=== PATIENT | male | born 1945 | race African-American/Black ===

== ENCOUNTER 2018-02-14 04:09 | Inpatient (IN) | payer BC, OTHER ==
[2018-02-14] MEDS ORDERED: SODIUM CHLORIDE 0.9% 1000 ML INFUS.BAG IV ONE (04:24)
[2018-02-14 04:42] LABS: VENOUS PC02 54.5 mmHg (38-52); VENOUS PO2 41.8 mmHg (28-48)
[2018-02-14 04:43] LABS: EOS % 1.6 % (0-4.5); HEMATOCRIT 47.6 % (35.4-49); LYMPH % 43.7 % (8-40); MCH 29.7 pg (25.7-33.7); MCHC 33.6 g/dl (32.0-35.9); MEAN CELL VOLUME 88.4 fl (80-96); MEAN PLT VOLUME 10.8 fl (7.5-11.1); MONO % 7.1 % (3.8-10.2); NEUT % 46.6 % (42.8-82.8); PLATELET COUNT 183 K/MM3 (134-434); RBC 5.39 M/mm3 (4.00-5.60); RDW 13.8 % (11.9-15.9); VENOUS PH 7.24 (7.32-7.42); WHITE BLOOD COUNT 7.2 K/mm3 (4.0-10.0)
[2018-02-14 04:53] LABS: INR 0.9 (0.82-1.09); PROTHROMBIN TIME (PATIENT) 10.2 SEC (9.7-13.0)
[2018-02-14 04:55] LABS: ACTIVATED PTT 25.2 SECONDS (26.9-34.4)
--- NOTE | 2018-02-14 05:07 | PDOC ---
History of Present Illness - General History Source: EMS, Family, Old Records Exam Limitations: Clinical Condition - History of Present Illness Initial Comments: 02/14/18 05:30 The patient is a 73 year old male, with a significant past medical history of hypertension, hyperlipidemia and diabetes (noncompliant with medications for the past couple of weeks), who presents to the emergency department via EMS for evaluation s/p two witnessed seizures early this morning beginning at approximately 3AM while the patient was in bed. The patient's reports that at approximately 3AM, she witnessed her experiencing a seizure and initiated EMS. The patient's son reports that he administered 30 units of insulin to the buttocks as EMS was on their way. EMS arrived on scene, obtained a fingerstick which was read as too high to give a numerical value and observed the patient experience a second seizure. The patient's denies any trauma, she states that the patient experienced both seizures in bed. History is provided entirely by the patients family and EMS secondary to the patients current altered state. Allergies: None reported. Past Surgical History: None reported. Social History: Former smoker. Denies alcohol or drug use. PCP: Dr. Rendon <Rosario Hannah - Last Filed: 02/14/18 06:44> <Glen Reyes - Last Filed: 02/28/18 13:12> - General Chief Complaint: Seizure Stated Complaint: SEIZURES Time Seen by Provider: 02/14/18 04:16 Past History <Rosario Hannah - Last Filed: 02/14/18 06:44> - Past Medical History Anemia: No (denies) COPD: No Diabetes: Yes - Suicide/Smoking/Psychosocial Hx Smoking History: Unknown if ever smoked Have you smoked in the past 12 months: Yes Number of Cigarettes Smoked Daily: 5 'Breaking Loose' booklet given: 09/16/16 Hx Alcohol Use: No Drug/Substance Use Hx: No Substance Use Type: None Hx Substance Use Treatment: No <Glen Reyes - Last Filed: 02/28/18 13:12> - Past Medical History Allergies/Adverse Reactions: Allergies Allergy/AdvReac Type Severity Reaction Status Date / Time No Known Allergies Allergy Verified 02/14/18 05:05 Home Medications: Ambulatory Orders Phenytoin Na Extended [Dilantin -] 300 mg PO DAILY #90 capsule 09/18/16 Atorvastatin Ca [Lipitor] 20 mg PO HS 02/14/18 Empagliflozin [Jardiance] 25 mg PO DAILY 02/14/18 Insulin Glargine,Hum.rec.anlog [[place]o Solostar] 60 unit SQ DAILY 02/14/18 Sitagliptin Phosphate [Januvia -] 50 mg PO DAILY@0700 02/14/18 Glycopyrrolate/Formoterol Fum [Bevespi Aerosphere Inhaler] 1 puff IH DAILY 02/15 Linaclotide [Linzess] 145 mcg PO DAILY 02/15/18 Insulin Sliding Scale [Novolog Vial Sliding Scale -] 1 vial SQ ACHS #0 units 07/27 levETIRAcetam [Keppra -] 750 mg PO BID 30 Days #180 tablet 02/16/18 Review of Systems - Review of Systems Able to Perform ROS?: No Comments:: 02/14/18 05:32 Unable to obtain ROS secondary to the patient's current altered mental status. <Rosario Hannah - Last Filed: 02/14/18 06:44> *Physical Exam - Vital Signs Last Vital Signs Temp Pulse Resp BP Pulse Ox 97.7 F 112 H 18 109/77 98 02/14/18 04:40 02/14/18 04:24 02/14/18 04:24 02/14/18 04:24 02/14/18 04:24 - Physical Exam Comments: 02/14/18 06:29 Vitals: Triage vital signs reviewed. General Appearance: Altered mental status. Flailing, moving all extremities. Head: Atraumatic, normocephalic. Eyes: Pupils equal round reactive, extraocular movements intact. Neck: Supple. No nuchal rigidity. Chest Wall: Nontender. Cardiac: Regular rate and rhythm. No murmurs, no rubs, no gallops. Lungs: Clear to auscultation bilaterally, good air movement bilaterally. Abdomen: Soft, nondistended, normal bowel sounds, nontender to palpation. Rectal: Exam deferred. Extremities: Full range of motion to all extremities, no cyanosis, clubbing, or edema. Skin: Warm and dry, no rashes or lesions, no petechiae. Neuro: Cranial Nerves 2-12 grossly intact. Strength intact to all extremities. Sensation intact to all extremities. Psych: Altered. <Cumberland,Rosario - Last Filed: 02/14/18 06:44> - Vital Signs Last Vital Signs Temp Pulse Resp BP Pulse Ox 97.7 F 112 H 18 109/77 98 02/14/18 04:40 02/14/18 04:24 02/14/18 04:24 02/14/18 04:24 02/14/18 04:24 <Glen Reyes - Last Filed: 02/28/18 13:12> ED Treatment Course - LABORATORY CBC & Chemistry Diagram: 02/14/18 04:00 02/14/18 04:00 - ADDITIONAL ORDERS Additional order review: Laboratory Results 02/14/18 02/14/18 02/14/18 04:50 04:00 04:00 PT with INR INR PTT (Actin FS) VBG pH POC VBG pCO2 POC VBG pO2 Mixed VBG HCO3 Sodium Potassium Chloride Carbon Dioxide Anion Gap BUN Creatinine Creat Clearance w eGFR Random Glucose Lactic Acid 9.1 H* Calcium Total Bilirubin AST ALT Alkaline Phosphatase Troponin I Cancelled Total Protein Albumin Urine Color Straw Urine Appearance Clear Urine pH 5.0 Ur Specific [place] 1.029 Urine Protein Negative Urine Glucose (UA) 3+ H Urine Ketones Negative Urine Blood Negative Urine Nitrite Negative Urine Bilirubin Negative Urine Urobilinogen Negative Ur Leukocyte Esterase Negative 02/14/18 02/14/18 02/14/18 04:00 04:00 04:00 PT with INR 10.20 INR 0.90 PTT (Actin FS) 25.2 L VBG pH 7.24 L* POC VBG pCO2 54.5 H POC VBG pO2 41.8 Mixed VBG HCO3 22.4 Sodium Cancelled Potassium Cancelled Chloride Cancelled Carbon Dioxide Cancelled Anion Gap Cancelled BUN Cancelled Creatinine Cancelled Creat Clearance w eGFR Cancelled Random Glucose Cancelled Lactic Acid Calcium Cancelled Total Bilirubin Cancelled AST Cancelled ALT Cancelled Alkaline Phosphatase Cancelled Troponin I Total Protein Cancelled Albumin Cancelled Urine Color Urine Appearance Urine pH Ur Specific [place] Urine Protein Urine Glucose (UA) Urine Ketones Urine Blood Urine Nitrite Urine Bilirubin Urine Urobilinogen Ur Leukocyte Esterase 02/14/18 04:00 RBC 5.39 MCV 88.4 MCHC 33.6 RDW 13.8 MPV 10.8 Neutrophils % 46.6 D Lymphocytes % 43.7 H D Monocytes % 7.1 Eosinophils % 1.6 D Basophils % 1.0 - Medications Given in the ED: ED Medications Discontinued Medications Generic Name Dose Route Start Last Admin Trade Name Freq PRN Reason Stop Dose Admin Lorazepam 1 mg 02/14/18 04:29 02/14/18 04:39 Ativan Injection - IVPUSH 02/14/18 04:30 1 mg ONCE ONE Administration Lorazepam 2 mg 02/14/18 05:10 02/14/18 05:14 Ativan Injection - IVPUSH 02/14/18 05:11 2 mg ONCE ONE Administration Sodium Chloride 4,000 ml 02/14/18 04:24 02/14/18 04:39 Normal Saline - IV 02/14/18 04:25 4,000 ml ONCE ONE Administration <Rosario Hannah - Last Filed: 02/14/18 06:44> - LABORATORY CBC & Chemistry Diagram: 02/16/18 06:00 02/16/18 06:00 - ADDITIONAL ORDERS Additional order review: Laboratory Results 02/14/18 02/14/18 04:00 04:00 PT with INR 10.20 INR 0.90 PTT (Actin FS) 25.2 L VBG pH 7.24 L* POC VBG pCO2 54.5 H POC VBG pO2 41.8 Mixed VBG HCO3 22.4 02/14/18 04:00 RBC 5.39 MCV 88.4 MCHC 33.6 RDW 13.8 MPV 10.8 Neutrophils % 46.6 D Lymphocytes % 43.7 H D Monocytes % 7.1 Eosinophils % 1.6 D Basophils % 1.0 - RADIOLOGY Radiology Studies Ordered: Category Date Time Status HEAD CT WITHOUT CONTRAST [CT] Stat CT Scan 02/14/18 04:25 Ordered CHEST X-RAY PORTABLE* [RAD] Stat Radiology 02/14/18 04:24 Ordered - Medications Given in the ED: ED Medications Discontinued Medications Generic Name Dose Route Start Last Admin Trade Name Freq PRN Reason Stop Dose Admin Lorazepam 1 mg 02/14/18 04:29 02/14/18 04:39 Ativan Injection - IVPUSH 02/14/18 04:30 1 mg ONCE ONE Administration Sodium Chloride 4,000 ml 02/14/18 04:24 02/14/18 04:39 Normal Saline - IV 02/14/18 04:25 4,000 ml ONCE ONE Administration <Glen Reyes - Last Filed: 02/28/18 13:12> Medical Decision Making - Medical Decision Making 02/14/18 05:31 The patient is a 73 year old male, with a significant past medical history of hypertension, hyperlipidemia and diabetes (noncompliant with medications for the past couple of weeks), who presents to the emergency department via EMS for evaluation s/p two witnessed seizures early this morning beginning at approximately 3AM while the patient was in bed. The patients reports that at approximately 3AM, she witnessed her experiencing a seizure and initiated EMS. The patients son reports that he administered 30 units of insulin to the buttocks as EMS was on their way. EMS arrived on scene, obtained a fingerstick which was read as too high to give a numerical value and observed the patient experience a second seizure. The patients denies any trauma, she states that the patient experienced both seizures in bed. History is provided entirely by the patients family and EMS secondary to the patients current altered state. Allergies: None reported. Past Surgical History: None reported. Social History: Former smoker. Denies alcohol or drug use. PCP: Dr. Rendon EXAM: CT/HEAD CT WITHOUT CONTRAST Reviewed By: Dr. Ganesh Swenson IMPRESSION: No evidence of acute pathology. Call placed to Dr. Sanders at 06:40, left message with answering service. Awaiting callback. <Rosario Hannah - Last Filed: 02/14/18 06:44> - Critical Care Time Total Critical Care Time (minutes): 55 Critical Care Statement: The care of this patient involved high complexity decision making to prevent further life threatening deterioration of the patient 's condition and/or to evaluate & treat vital organ system(s) failure or risk of failure. - Medical Decision Making History examination consistent with DKA versus hyperosmotic nonketotic coma 3 L IV fluids ordered labs pending. Patient to be admitted to ICU. Pulm/ Critical care aware We will initiate insulin drip once potassium returns. Will admit to medicine for further management. Dr. Muse to follow-up results and the spell. <Glen Reyes - Last Filed: 02/28/18 13:12> *DC/Admit/Observation/Transfer - Attestations Scribe Attestion: 02/14/18 05:31 Documentation prepared by Rosario Hannah, acting as medical office assistant instructor for Glen Reyes MD. <Rosario Hannah - Last Filed: 02/14/18 06:44> <Glen Reyes - Last Filed: 02/28/18 13:12> Diagnosis at time of Disposition: DKA (diabetic ketoacidoses), Elevated lactic acid level, Seizure - Discharge Dispostion Disposition: VNS/HOME HEALTH CARE Condition at time of disposition: Stable
[2018-02-14 05:11] LABS: URINE APPEARANCE CLEAR; URINE BILIRUBIN NEGATIVE (<2.0 mg/dL); URINE COLOR STRAW; URINE GLUCOSE (UA) 3+ (NEGATIVE); URINE KETONE NEGATIVE (NEGATIVE); URINE LEUK ESTERASE NEGATIVE (NEGATIVE); URINE NITRITE NEGATIVE (NEGATIVE); URINE PROTEIN NEGATIVE (NEGATIVE); URINE UROBILINOGEN NEGATIVE mg/dL (0.2-1.0)
[2018-02-14] MEDS ORDERED: MIDAZOLAM HCL 2 MG/2 ML SINGLE DOSE VIAL IVPUSH ONE (06:13)
[2018-02-14] MEDS ORDERED: MIDAZOLAM HCL 2 MG/2 ML SINGLE DOSE VIAL ONE (06:14)
[2018-02-14 07:48] LABS: ANION GAP 16 (8-16); BILIRUBIN,TOTAL 0.5 mg/dL (0.2-1.0); BLOOD UREA NITROGEN 17 mg/dL (7-18); CALCIUM 9.6 mg/dL (8.5-10.1); CHLORIDE 101 mmol/L (98-107); CO2 24 mmol/L (21-32); CREATININE 1.3 mg/dL (0.7-1.3); POTASSIUM 3.6 mmol/L (3.5-5.1); SGOT/AST 18 U/L (15-37); SGPT/ALT 33 U/L (12-78); SODIUM 141 mmol/L (136-145); TOT PROT 7.3 g/dl (6.4-8.2)
[2018-02-14 07:49] LABS: ALK PHOS 74 U/L (45-117)
[2018-02-14 07:50] LABS: GLUCOSE,RANDOM 613 mg/dL (74-106)
[2018-02-14] MEDS ORDERED: INSULIN REGULAR HUMAN 100 UNITS/ML *VIAL IVPUSH ONE (07:51)
--- NOTE | 2018-02-14 08:01 | PDOC ---
*Physical Exam - Vital Signs Last Vital Signs Temp Pulse Resp BP Pulse Ox 97.7 F 89 18 112/71 92 L 02/14/18 04:40 02/14/18 06:36 02/14/18 06:36 02/14/18 06:36 02/14/18 06:36 02/14/18 07:58 Care endorsed to me by Dr. Reyse at the beginning of my shift. Patient is a 73 YOM with h/o poorly controlled IDDM who took himself off insulin recently, presented to ED via EMS with seizure x2, controlled now with benzodiazepines. Finger stick BGM read "high" and pending lab workup now. Will decide on tx options based on labs. HCT with nothing acute. Admitted to ICU already. ED Treatment Course - LABORATORY CBC & Chemistry Diagram: 02/14/18 04:00 02/14/18 05:45 - ADDITIONAL ORDERS Additional order review: Laboratory Results 02/14/18 02/14/18 02/14/18 05:45 04:50 04:00 PT with INR INR PTT (Actin FS) VBG pH POC VBG pCO2 POC VBG pO2 Mixed VBG HCO3 Sodium 141 Potassium 3.6 Chloride 101 Carbon Dioxide 24 Anion Gap 16 BUN 17 D Creatinine 1.3 D Creat Clearance w eGFR 53.82 Random Glucose 613 H* D Lactic Acid Calcium 9.6 D Total Bilirubin 0.5 D AST 18 ALT 33 D Alkaline Phosphatase 74 D Troponin I < 0.02 Cancelled Total Protein 7.3 D Albumin 4.0 D Urine Color Straw Urine Appearance Clear Urine pH 5.0 Ur Specific [place] 1.029 Urine Protein Negative Urine Glucose (UA) 3+ H Urine Ketones Negative Urine Blood Negative Urine Nitrite Negative Urine Bilirubin Negative Urine Urobilinogen Negative Ur Leukocyte Esterase Negative 02/14/18 02/14/18 02/14/18 04:00 04:00 04:00 PT with INR INR PTT (Actin FS) VBG pH 7.24 L* POC VBG pCO2 54.5 H POC VBG pO2 41.8 Mixed VBG HCO3 22.4 Sodium Cancelled Potassium Cancelled Chloride Cancelled Carbon Dioxide Cancelled Anion Gap Cancelled BUN Cancelled Creatinine Cancelled Creat Clearance w eGFR Cancelled Random Glucose Cancelled Lactic Acid 9.1 H* Calcium Cancelled Total Bilirubin Cancelled AST Cancelled ALT Cancelled Alkaline Phosphatase Cancelled Troponin I Total Protein Cancelled Albumin Cancelled Urine Color Urine Appearance Urine pH Ur Specific [place] Urine Protein Urine Glucose (UA) Urine Ketones Urine Blood Urine Nitrite Urine Bilirubin Urine Urobilinogen Ur Leukocyte Esterase 02/14/18 04:00 PT with INR 10.20 INR 0.90 PTT (Actin FS) 25.2 L VBG pH POC VBG pCO2 POC VBG pO2 Mixed VBG HCO3 Sodium Potassium Chloride Carbon Dioxide Anion Gap BUN Creatinine Creat Clearance w eGFR Random Glucose Lactic Acid Calcium Total Bilirubin AST ALT Alkaline Phosphatase Troponin I Total Protein Albumin Urine Color Urine Appearance Urine pH Ur Specific [place] Urine Protein Urine Glucose (UA) Urine Ketones Urine Blood Urine Nitrite Urine Bilirubin Urine Urobilinogen Ur Leukocyte Esterase 02/14/18 04:00 RBC 5.39 MCV 88.4 MCHC 33.6 RDW 13.8 MPV 10.8 Neutrophils % 46.6 D Lymphocytes % 43.7 H D Monocytes % 7.1 Eosinophils % 1.6 D Basophils % 1.0 - Medications Given in the ED: ED Medications Discontinued Medications Generic Name Dose Route Start Last Admin Trade Name Mortezaq PRN Reason Stop Dose Admin Lorazepam 1 mg 02/14/18 04:29 02/14/18 04:39 Ativan Injection - IVPUSH 02/14/18 04:30 1 mg ONCE ONE Administration Lorazepam 2 mg 02/14/18 05:10 02/14/18 05:14 Ativan Injection - IVPUSH 02/14/18 05:11 2 mg ONCE ONE Administration Midazolam HCl 2 mg 02/14/18 06:13 02/14/18 07:16 Versed - IVPUSH 02/14/18 06:14 Not Given ONCE ONE Sodium Chloride 4,000 ml 02/14/18 04:24 02/14/18 04:39 Normal Saline - IV 02/14/18 04:25 4,000 ml ONCE ONE Administration Medical Decision Making - Medical Decision Making 02/14/18 08:10 Labs notable for slight positive 1+ acetone, anion gap 16, BG 613, K 3.6. Checking finger stick BGM then based on this will bolus insulin. Will give potassium as well with insulin. 02/14/18 10:25 Patient's repeat finger stick BG is 116, insulin drip is turned downed. Repeat EKG shows NSR rate 95 normal axis, 1st degree AV block, no Q waves in V1- V2 as there is preceding upward deflection. *DC/Admit/Observation/Transfer Diagnosis at time of Disposition: DKA (diabetic ketoacidoses), Elevated lactic acid level, Seizure - Discharge Dispostion Condition at time of disposition: Guarded Decision to Admit order: Yes - Referrals Referrals: Aries Rendon [Primary Care Provider] - - Patient Instructions - Post Discharge Activity
[2018-02-14] MEDS ORDERED: INSULIN REGULAR HUMAN 100 UNITS/ML *VIAL ONE ×2 (08:22→09:07)
[2018-02-14] MEDS ORDERED: POTASSIUM CHLORIDE 20 MEQ PREMIX IVPB 100 ML IVPB ONE ×2 (08:46→10:07)
[2018-02-14] MEDS ORDERED: KCL 10 MEQ IVPB 20 MEQ/200 ML INFUS.BAG IVPB ONE (08:55)
[2018-02-14] MEDS ORDERED: INSULIN REGULAR 100 UNITS in SODIUM CHLORIDE 99 ML IVPB SCH (09:00)
--- NOTE | 2018-02-14 09:57 | EKG ---
Test Reason : Blood Pressure : / mmHG Vent. Rate : 097 BPM Atrial Rate : 097 BPM P-R Int : 196 ms QRS Dur : 106 ms QT Int : 348 ms P-R-T Axes : 078 000 043 degrees QTc Int : 441 ms NORMAL SINUS RHYTHM SEPTAL INFARCT (CITED ON OR BEFORE 21-JAN-2011) ABNORMAL ECG WHEN COMPARED WITH ECG OF 16-SEP-2016 00:13, NO SIGNIFICANT CHANGE WAS FOUND Confirmed by MD Ltaisha, Peter ([id number]) on 02/14/2018 9:57:34 AM Referred By: Confirmed By:Peter Good MD
[2018-02-14 10:26] LABS: ARTERIAL BLD GAS O2 SATURATION 95.3 % (90-98.9); ARTERIAL BLOOD GAS BASE EXCESS -3.6 meq/l (-2-2); ARTERIAL BLOOD GAS PCO2 39.4 mmHg (35-45); ARTERIAL BLOOD GAS PO2 77.4 mmHg (70-100); ARTERIAL BLOOD GAS pH 7.35 (7.35-7.45)
[2018-02-14 10:30] LABS: CARBOXYHEMOGLOBIN 1.8 gm% (0.5-2.0)
[2018-02-14 10:35] LABS: ALLENS TEST POSITIVE
[2018-02-14] MEDS ORDERED: DEXTROSE 5%-WATER 500 ML PVC-FREE INFUS.BAG IV ONE (11:39)
--- NOTE | 2018-02-14 11:50 | PN ---
Teaching Attending Note Name of Resident: Jasmina Saldivar ATTENDING PHYSICIAN STATEMENT I saw and evaluated the patient. I reviewed the resident's note and discussed the case with the resident. I agree with the resident's findings and plan as documented. SUBJECTIVE: This is a 73 year old man with a history of HTN, hyperlipidemia, type 2 DM, seizure disorder who comes to the ED after having two seizures. The first occurred around 3 am while in bed and was witnessed by his . She called EMS. He had recently been non-compliant with his diabetic regimen, so his son gave him 30 units of insulin. When EMS arrived, he was still in bed, his fingerstick was "high", and he had a second seizure. He was brought to the ED where he had another seizure. The patient is unable to provide a history. OBJECTIVE: Vital Signs Period Temp Pulse Resp BP Sys/Yung Pulse Ox Last 24 Hr 97.7 F-97.7 F 89-112 14-18 109-120/71-84 92-98 GENERAL: Awake, confused HEART: S1S2, RRR LUNGS: Clear ABDOMEN: Soft, non-distended, normal BS EXTREMITIES: No edema Laboratory Tests 02/14/18 02/14/18 02/14/18 04:00 04:00 04:00 WBC 7.2 D RBC 5.39 Hgb 16.0 D Hct 47.6 MCV 88.4 MCH 29.7 MCHC 33.6 RDW 13.8 Plt Count 183 D MPV 10.8 Neutrophils % 46.6 D Lymphocytes % 43.7 H D Monocytes % 7.1 Eosinophils % 1.6 D Basophils % 1.0 PT with INR 10.20 INR 0.90 PTT (Actin FS) 25.2 L Puncture Site ABG pH ABG pCO2 at Pt Temp ABG pO2 at Pt Temp ABG HCO3 ABG O2 Sat (Measured) ABG O2 Content ABG Base Excess Jeremiah Test VBG pH 7.24 L* POC VBG pCO2 54.5 H POC VBG pO2 41.8 Mixed VBG HCO3 22.4 Carboxyhemoglobin Methemoglobin Oxygen Flow Rate Sodium Potassium Chloride Carbon Dioxide Anion Gap BUN Creatinine Creat Clearance w eGFR POC Glucometer Random Glucose Lactic Acid Calcium Total Bilirubin AST ALT Alkaline Phosphatase Troponin I Total Protein Albumin Urine Color Urine Appearance Urine pH Ur Specific [place] Urine Protein Urine Glucose (UA) Urine Ketones Urine Blood Urine Nitrite Urine Bilirubin Urine Urobilinogen Ur Leukocyte Esterase Acetone, Qual 02/14/18 02/14/18 02/14/18 04:00 04:00 04:00 WBC RBC Hgb Hct MCV MCH MCHC RDW Plt Count MPV Neutrophils % Lymphocytes % Monocytes % Eosinophils % Basophils % PT with INR INR PTT (Actin FS) Puncture Site ABG pH ABG pCO2 at Pt Temp ABG pO2 at Pt Temp ABG HCO3 ABG O2 Sat (Measured) ABG O2 Content ABG Base Excess Jeremiah Test VBG pH POC VBG pCO2 POC VBG pO2 Mixed VBG HCO3 Carboxyhemoglobin Methemoglobin Oxygen Flow Rate Sodium Cancelled Potassium Cancelled Chloride Cancelled Carbon Dioxide Cancelled Anion Gap Cancelled BUN Cancelled Creatinine Cancelled Creat Clearance w eGFR Cancelled POC Glucometer Random Glucose Cancelled Lactic Acid 9.1 H* Calcium Cancelled Total Bilirubin Cancelled AST Cancelled ALT Cancelled Alkaline Phosphatase Cancelled Troponin I Cancelled Total Protein Cancelled Albumin Cancelled Urine Color Urine Appearance Urine pH Ur Specific [place] Urine Protein Urine Glucose (UA) Urine Ketones Urine Blood Urine Nitrite Urine Bilirubin Urine Urobilinogen Ur Leukocyte Esterase Acetone, Qual 02/14/18 02/14/18 02/14/18 04:14 04:50 05:45 WBC RBC Hgb Hct MCV MCH MCHC RDW Plt Count MPV Neutrophils % Lymphocytes % Monocytes % Eosinophils % Basophils % PT with INR INR PTT (Actin FS) Puncture Site ABG pH ABG pCO2 at Pt Temp ABG pO2 at Pt Temp ABG HCO3 ABG O2 Sat (Measured) ABG O2 Content ABG Base Excess Jeremiah Test VBG pH POC VBG pCO2 POC VBG pO2 Mixed VBG HCO3 Carboxyhemoglobin Methemoglobin Oxygen Flow Rate Sodium 141 Potassium 3.6 Chloride 101 Carbon Dioxide 24 Anion Gap 16 BUN 17 D Creatinine 1.3 D Creat Clearance w eGFR 53.82 POC Glucometer > 400 Random Glucose 613 H* D Lactic Acid Calcium 9.6 D Total Bilirubin 0.5 D AST 18 ALT 33 D Alkaline Phosphatase 74 D Troponin I < 0.02 Total Protein 7.3 D Albumin 4.0 D Urine Color Straw Urine Appearance Clear Urine pH 5.0 Ur Specific [place] 1.029 Urine Protein Negative Urine Glucose (UA) 3+ H Urine Ketones Negative Urine Blood Negative Urine Nitrite Negative Urine Bilirubin Negative Urine Urobilinogen Negative Ur Leukocyte Esterase Negative Acetone, Qual 02/14/18 02/14/18 02/14/18 07:10 08:34 10:15 WBC RBC Hgb Hct MCV MCH MCHC RDW Plt Count MPV Neutrophils % Lymphocytes % Monocytes % Eosinophils % Basophils % PT with INR INR PTT (Actin FS) Puncture Site Right radial ABG pH 7.35 ABG pCO2 at Pt Temp 39.4 ABG pO2 at Pt Temp 77.4 D ABG HCO3 21.2 L ABG O2 Sat (Measured) 95.3 ABG O2 Content 19.5 ABG Base Excess -3.6 L Jeremiah Test Positive VBG pH POC VBG pCO2 POC VBG pO2 Mixed VBG HCO3 Carboxyhemoglobin Methemoglobin Oxygen Flow Rate Yes Sodium Potassium Chloride Carbon Dioxide Anion Gap BUN Creatinine Creat Clearance w eGFR POC Glucometer > 400 Random Glucose Lactic Acid Calcium Total Bilirubin AST ALT Alkaline Phosphatase Troponin I Total Protein Albumin Urine Color Urine Appearance Urine pH Ur Specific [place] Urine Protein Urine Glucose (UA) Urine Ketones Urine Blood Urine Nitrite Urine Bilirubin Urine Urobilinogen Ur Leukocyte Esterase Acetone, Qual Positive small 1+ 02/14/18 02/14/18 02/14/18 10:20 10:23 10:30 WBC RBC Hgb Hct MCV MCH MCHC RDW Plt Count MPV Neutrophils % Lymphocytes % Monocytes % Eosinophils % Basophils % PT with INR INR PTT (Actin FS) Puncture Site ABG pH ABG pCO2 at Pt Temp ABG pO2 at Pt Temp ABG HCO3 ABG O2 Sat (Measured) ABG O2 Content ABG Base Excess Jeremiah Test VBG pH POC VBG pCO2 POC VBG pO2 Mixed VBG HCO3 Carboxyhemoglobin 1.8 Methemoglobin 1.1 Oxygen Flow Rate Sodium Potassium Chloride Carbon Dioxide Anion Gap BUN Creatinine Creat Clearance w eGFR POC Glucometer [phone] Random Glucose Lactic Acid 3.9 H* Calcium Total Bilirubin AST ALT Alkaline Phosphatase Troponin I Total Protein Albumin Urine Color Urine Appearance Urine pH Ur Specific [place] Urine Protein Urine Glucose (UA) Urine Ketones Urine Blood Urine Nitrite Urine Bilirubin Urine Urobilinogen Ur Leukocyte Esterase Acetone, Qual 02/14/18 11:13 WBC RBC Hgb Hct MCV MCH MCHC RDW Plt Count MPV Neutrophils % Lymphocytes % Monocytes % Eosinophils % Basophils % PT with INR INR PTT (Actin FS) Puncture Site ABG pH ABG pCO2 at Pt Temp ABG pO2 at Pt Temp ABG HCO3 ABG O2 Sat (Measured) ABG O2 Content ABG Base Excess Jeremiah Test VBG pH POC VBG pCO2 POC VBG pO2 Mixed VBG HCO3 Carboxyhemoglobin Methemoglobin Oxygen Flow Rate Sodium Potassium Chloride Carbon Dioxide Anion Gap BUN Creatinine Creat Clearance w eGFR POC Glucometer [phone] Random Glucose Lactic Acid Calcium Total Bilirubin AST ALT Alkaline Phosphatase Troponin I Total Protein Albumin Urine Color Urine Appearance Urine pH Ur Specific [place] Urine Protein Urine Glucose (UA) Urine Ketones Urine Blood Urine Nitrite Urine Bilirubin Urine Urobilinogen Ur Leukocyte Esterase Acetone, Qual Home Medications Medication Instructions Recorded Phenytoin Na Extended [Dilantin -] 300 mg PO DAILY #90 capsule 09/18/16 Atorvastatin Ca [Lipitor] 20 mg PO HS 02/14/18 Empagliflozin [Jardiance] 25 mg PO DAILY 02/14/18 Insulin Glargine,Hum.rec.anlog 60 unit SQ DAILY 02/14/18 [Pily Ocasio] Sitagliptin Phosphate [Januvia] 50 mg PO DAILY@0700 02/14/18 ASSESSMENT AND PLAN: This is a 73 year old man with a history of HTN, hyperlipidemia, type 2 DM, seizure disorder who comes to the ED after having two seizures. 1. Early DKA, secondary to non-compliance - Admit to ICU - Continue regular insulin IV drip - IV fluid - Monitor fingersticks, electrolytes, anion gap, serum acetone 2. Type 2 DM, uncontrolled 3. Seizure disorder with breakthrough seizure, possibly secondary to non- compliance - Keppra IV - Check Dilantin level 4. Lactic acidemia, likely secondary to seizures - Improving - Continue IV fluid - Monitor lactic acid 4. HTN 5. Hyperlipidemia
[2018-02-14] MEDS ORDERED: DEXTROSE 5%-NORMAL SALINE 1,000 ML IV SCH (12:00)
[2018-02-14] MEDS ORDERED: DEXTROSE 5%-WATER - 1,000 ML IV SCH (12:15)
[2018-02-14] MEDS ORDERED: D5-1/2NS+40 MEQ KCL - 40 MEQ/1,000 ML INFUS.BAG IV SCH (12:30)
--- NOTE | 2018-02-14 13:02 | HP ---
CHIEF COMPLAINT: weakness, seizures PCP: Justice HISTORY OF PRESENT ILLNESS: The patient is a 73 year old male with a significant PMH of IDDM, HTN, hyperlipidemia, seizure disorder that presented to the hospital s/p seizures x 2 at home. History was taken partially from the patient and from medical documentation since the patient is still confused. He was found in bed by his who witnessed two episodes of seizures. He was given 30 units of Insulin and ambulance was called. The pt didn't have any trauma before coming to the hospital. According to the family he was not compliant with his home medications. In ED he had another seizure and he was given Versed, Ativan x 4. He was also found to have elevated Glucose to 613, AG 16, K 3.3, La 9.1, acetone 1+. He was given 4 L of Normal Saline and started on Insulin drip at rate of 0.1 u/kg/hr. Head CT-no acute pathology. The patient was accepted to ICU. When I saw the patient, he was complaining of weakness but was only oriented to his name. He didn't remember what happened and admitted to non compliance to medications. ER course was notable for: (1)Ativan, Versed (2)CT head (3)Insulin drip and NS, KCL Recent Travel:N/A PAST MEDICAL HISTORY: as above PAST SURGICAL HISTORY: N/A Social History: Smoking: former smoker Alcohol:denies Drugs: denies Family History: N/A Allergies No Known Allergies Allergy (Verified 02/14/18 05:05) HOME MEDICATIONS: Home Medications Medication Instructions Recorded Phenytoin Na Extended [Dilantin -] 300 mg PO DAILY #90 capsule 09/18/16 Atorvastatin Ca [Lipitor] 20 mg PO HS 02/14/18 Empagliflozin [Jardiance] 25 mg PO DAILY 02/14/18 Insulin Glargine,Hum.rec.anlog 60 unit SQ DAILY 02/14/18 [Pily Solostashely] Sitagliptin Phosphate [Januvia] 50 mg PO DAILY@0700 02/14/18 REVIEW OF SYSTEMS-limited due to AMS CONSTITUTIONAL: generalized weakness Absent: malaise, loss of appetite, weight change HEENT: Absent: rhinorrhea, visual changes CARDIOVASCULAR: Absent: chest pain, syncope, palpitations, irregular heart rate, lightheadedness , RESPIRATORY: Absent: cough, shortness of breath, orthopnea, wheezing, GASTROINTESTINAL: Absent: abdominal pain, nausea, vomiting, diarrhea, constipation GENITOURINARY: Absent: dysuria, frequency, urgency, MUSCULOSKELETAL: Absent: myalgia, arthralgia, joint swelling, back pain, neck pain ENDOCRINE: Absent: unexplained weight gain, unexplained weight loss, NEUROLOGIC: Absent: headache PHYSICAL EXAMINATION Vital Signs - 24 hr 02/14/18 02/14/18 02/14/18 04:24 04:40 06:36 Temperature 97.7 F 97.7 F Pulse Rate 112 H Pulse Rate [ 89 Right Apical] Respiratory 18 18 Rate Blood Pressure 109/77 Blood Pressure 112/71 [Right Arm] O2 Sat by Pulse 98 92 L Oximetry (%) 02/14/18 11:39 Temperature Pulse Rate 90 Pulse Rate [ Right Apical] Respiratory 14 Rate Blood Pressure 120/84 Blood Pressure [Right Arm] O2 Sat by Pulse Oximetry (%) GENERAL: Awake, alert, oriented to person only, in no acute distress. HEAD: Normal with no signs of trauma. EYES: Pupils equal, round and reactive to light, extraocular movements intact, sclera anicteric, conjunctival erythema. EARS, NOSE, THROAT: nares patent, oropharynx clear without exudates. Dry mucous membranes. NECK: Normal range of motion, supple without lymphadenopathy, JVD, or masses. LUNGS: Breath sounds equal, clear to auscultation bilaterally. No wheezes, and no crackles. No accessory muscle use. HEART: Regular rate and rhythm, normal S1 and S2 without murmur, rub or gallop. ABDOMEN: Soft, nontender, not distended, normoactive bowel sounds, no guarding, no rebound, no masses. MUSCULOSKELETAL: Normal range of motion at all joints. No bony deformities or tenderness. UPPER EXTREMITIES: 2+ pulses, warm, no peripheral edema. LOWER EXTREMITIES: 2+ pulses, no peripheral edema. NEUROLOGICAL: No facial asymmetry, motor 5/5, sensation to light touch normal, no focal deficits, gait not observed. PSYCHIATRIC: Cooperative. Confused. SKIN: Warm, dry, normal turgor, no rashes or lesions noted, normal capillary refill. Laboratory Results - last 24 hr 02/14/18 02/14/18 02/14/18 04:00 04:00 04:00 WBC 7.2 D RBC 5.39 Hgb 16.0 D Hct 47.6 MCV 88.4 MCH 29.7 MCHC 33.6 RDW 13.8 Plt Count 183 D MPV 10.8 Neutrophils % 46.6 D Lymphocytes % 43.7 H D Monocytes % 7.1 Eosinophils % 1.6 D Basophils % 1.0 PT with INR 10.20 INR 0.90 PTT (Actin FS) 25.2 L Puncture Site ABG pH ABG pCO2 at Pt Temp ABG pO2 at Pt Temp ABG HCO3 ABG O2 Sat (Measured) ABG O2 Content ABG Base Excess Jeremiah Test VBG pH 7.24 L* POC VBG pCO2 54.5 H POC VBG pO2 41.8 Mixed VBG HCO3 22.4 Carboxyhemoglobin Methemoglobin Oxygen Flow Rate Sodium Potassium Chloride Carbon Dioxide Anion Gap BUN Creatinine Creat Clearance w eGFR POC Glucometer Random Glucose Lactic Acid Calcium Total Bilirubin AST ALT Alkaline Phosphatase Troponin I Total Protein Albumin Urine Color Urine Appearance Urine pH Ur Specific Sid[place] Urine Protein Urine Glucose (UA) Urine Ketones Urine Blood Urine Nitrite Urine Bilirubin Urine Urobilinogen Ur Leukocyte Esterase Acetone, Qual 02/14/18 02/14/18 02/14/18 04:00 04:00 04:00 WBC RBC Hgb Hct MCV MCH MCHC RDW Plt Count MPV Neutrophils % Lymphocytes % Monocytes % Eosinophils % Basophils % PT with INR INR PTT (Actin FS) Puncture Site ABG pH ABG pCO2 at Pt Temp ABG pO2 at Pt Temp ABG HCO3 ABG O2 Sat (Measured) ABG O2 Content ABG Base Excess Jeremiah Test VBG pH POC VBG pCO2 POC VBG pO2 Mixed VBG HCO3 Carboxyhemoglobin Methemoglobin Oxygen Flow Rate Sodium Cancelled Potassium Cancelled Chloride Cancelled Carbon Dioxide Cancelled Anion Gap Cancelled BUN Cancelled Creatinine Cancelled Creat Clearance w eGFR Cancelled POC Glucometer Random Glucose Cancelled Lactic Acid 9.1 H* Calcium Cancelled Total Bilirubin Cancelled AST Cancelled ALT Cancelled Alkaline Phosphatase Cancelled Troponin I Cancelled Total Protein Cancelled Albumin Cancelled Urine Color Urine Appearance Urine pH Ur Specific [place] Urine Protein Urine Glucose (UA) Urine Ketones Urine Blood Urine Nitrite Urine Bilirubin Urine Urobilinogen Ur Leukocyte Esterase Acetone, Qual 02/14/18 02/14/18 02/14/18 04:14 04:50 05:45 WBC RBC Hgb Hct MCV MCH MCHC RDW Plt Count MPV Neutrophils % Lymphocytes % Monocytes % Eosinophils % Basophils % PT with INR INR PTT (Actin FS) Puncture Site ABG pH ABG pCO2 at Pt Temp ABG pO2 at Pt Temp ABG HCO3 ABG O2 Sat (Measured) ABG O2 Content ABG Base Excess Jeremiah Test VBG pH POC VBG pCO2 POC VBG pO2 Mixed VBG HCO3 Carboxyhemoglobin Methemoglobin Oxygen Flow Rate Sodium 141 Potassium 3.6 Chloride 101 Carbon Dioxide 24 Anion Gap 16 BUN 17 D Creatinine 1.3 D Creat Clearance w eGFR 53.82 POC Glucometer > 400 Random Glucose 613 H* D Lactic Acid Calcium 9.6 D Total Bilirubin 0.5 D AST 18 ALT 33 D Alkaline Phosphatase 74 D Troponin I < 0.02 Total Protein 7.3 D Albumin 4.0 D Urine Color Straw Urine Appearance Clear Urine pH 5.0 Ur Specific Sid[place] 1.029 Urine Protein Negative Urine Glucose (UA) 3+ H Urine Ketones Negative Urine Blood Negative Urine Nitrite Negative Urine Bilirubin Negative Urine Urobilinogen Negative Ur Leukocyte Esterase Negative Acetone, Qual 02/14/18 02/14/18 02/14/18 07:10 08:34 10:15 WBC RBC Hgb Hct MCV MCH MCHC RDW Plt Count MPV Neutrophils % Lymphocytes % Monocytes % Eosinophils % Basophils % PT with INR INR PTT (Actin FS) Puncture Site Right radial ABG pH 7.35 ABG pCO2 at Pt Temp 39.4 ABG pO2 at Pt Temp 77.4 D ABG HCO3 21.2 L ABG O2 Sat (Measured) 95.3 ABG O2 Content 19.5 ABG Base Excess -3.6 L Jeremiah Test Positive VBG pH POC VBG pCO2 POC VBG pO2 Mixed VBG HCO3 Carboxyhemoglobin Methemoglobin Oxygen Flow Rate Yes Sodium Potassium Chloride Carbon Dioxide Anion Gap BUN Creatinine Creat Clearance w eGFR POC Glucometer > 400 Random Glucose Lactic Acid Calcium Total Bilirubin AST ALT Alkaline Phosphatase Troponin I Total Protein Albumin Urine Color Urine Appearance Urine pH Ur Specific [place] Urine Protein Urine Glucose (UA) Urine Ketones Urine Blood Urine Nitrite Urine Bilirubin Urine Urobilinogen Ur Leukocyte Esterase Acetone, Qual Positive small 1+ 02/14/18 02/14/18 02/14/18 10:20 10:23 10:30 WBC RBC Hgb Hct MCV MCH MCHC RDW Plt Count MPV Neutrophils % Lymphocytes % Monocytes % Eosinophils % Basophils % PT with INR INR PTT (Actin FS) Puncture Site ABG pH ABG pCO2 at Pt Temp ABG pO2 at Pt Temp ABG HCO3 ABG O2 Sat (Measured) ABG O2 Content ABG Base Excess Jeremiah Test VBG pH POC VBG pCO2 POC VBG pO2 Mixed VBG HCO3 Carboxyhemoglobin 1.8 Methemoglobin 1.1 Oxygen Flow Rate Sodium Potassium Chloride Carbon Dioxide Anion Gap BUN Creatinine Creat Clearance w eGFR POC Glucometer [phone] Random Glucose Lactic Acid 3.9 H* Calcium Total Bilirubin AST ALT Alkaline Phosphatase Troponin I Total Protein Albumin Urine Color Urine Appearance Urine pH Ur Specific Sid[place] Urine Protein Urine Glucose (UA) Urine Ketones Urine Blood Urine Nitrite Urine Bilirubin Urine Urobilinogen Ur Leukocyte Esterase Acetone, Qual 02/14/18 11:13 WBC RBC Hgb Hct MCV MCH MCHC RDW Plt Count MPV Neutrophils % Lymphocytes % Monocytes % Eosinophils % Basophils % PT with INR INR PTT (Actin FS) Puncture Site ABG pH ABG pCO2 at Pt Temp ABG pO2 at Pt Temp ABG HCO3 ABG O2 Sat (Measured) ABG O2 Content ABG Base Excess Jeremiah Test VBG pH POC VBG pCO2 POC VBG pO2 Mixed VBG HCO3 Carboxyhemoglobin Methemoglobin Oxygen Flow Rate Sodium Potassium Chloride Carbon Dioxide Anion Gap BUN Creatinine Creat Clearance w eGFR POC Glucometer [phone] Random Glucose Lactic Acid Calcium Total Bilirubin AST ALT Alkaline Phosphatase Troponin I Total Protein Albumin Urine Color Urine Appearance Urine pH Ur Specific [place] Urine Protein Urine Glucose (UA) Urine Ketones Urine Blood Urine Nitrite Urine Bilirubin Urine Urobilinogen Ur Leukocyte Esterase Acetone, Qual CT head: no acute pathology,supratentorial changes Chest CXR: no acute pathology ASSESSMENT/PLAN: The patient is a 73 year old male with a significant PMH of IDDM, HTN, hyperlipidemia, seizure disorder that presented to the hospital s/p seizures x 2 at home and is admitted to ICU for DKA, s/p seizures. DKA: -no trigger identified, possibly related to medication non compliance -the patient was found to have elevated glucose to 613, AG was borderline 16 -he was started on insulin dri at 6.35, decreased to 3 units/hr -please give 15 units of Levemir and stop Insulin drip two hours later -continue ISS ACHS, -continue to check FS q1h and then q4h -CMP ordered -the patient was given NS, please continue D5 NS with 40 meq of KCl -f/u CMP q4h -blood and urine cultures ordered in ED -diabetic diet -HA1C ordered S/P Seizures: -possibly related to hyperglycemia, not compliance to home medications -elevated LA, f/u next one down to 3.9, f/u at 4 PM -CT no acute pathology, no hemorrhage -neuro checks -fall risk precautions -please continue Keppra 750 mg BID Hypokalemia: -follow up CMP -repleated -no EKG changes HTN: -controlled -not on medications DVT PPX: -Heparin sq BID -SCDs bilaterally F/E/N:D5NS/low /Diabetic Disposition: ICU Medications confirmed with pharmacy at [facility]. Last time the patient picked up medications in November: Toujeo 60 units qd Discussed wit Dr Chavez Problem List - Problem (1) DKA (diabetic ketoacidoses) Code(s): E13.10 - OTH DIABETES MELLITUS WITH KETOACIDOSIS WITHOUT COMA (2) Elevated lactic acid level Code(s): R79.89 - OTHER SPECIFIED ABNORMAL FINDINGS OF BLOOD CHEMISTRY (3) Seizure Code(s): R56.9 - UNSPECIFIED CONVULSIONS Visit type - Emergency Visit Emergency Visit: Yes ED Registration Date: 02/14/18 Care time: The patient presented to the Emergency Department on the above date and was hospitalized for further evaluation of their emergent condition. - New Patient This patient is new to me today: Yes Date on this admission: 02/14/18 - Critical Care Critical Care patient: Yes Total Critical Care Time (in minutes): 35 Critical Care Statement: The care of this patient involved high complexity decision making to prevent further life threatening deterioration of the patient 's condition and/or to evaluate & treat vital organ system(s) failure or risk of failure. Hospitalist Screening - Colonoscopy Questionnaire Colonoscopy Questionnaire: Colonoscopy Questionnaire - Patient: 50 - 75 years old and never had a screening colonoscopy: Unknown History of colon or rectal polyps, or CA: Unknown History of IBD, Crohn's disease or UC: Unknown History of abdominal radiation therapy as a child: Unknown - Relative: 1 with colon or rectal CA, or polyps at age 60 or younger: Unknown Colon or rectal CA diagnosed at age 45 or younger: Unknown Multiple relatives with colon or rectal CA: Unknown - Outcome: Screening Result: Negative Screen
[2018-02-14] MEDS ORDERED: INSULIN (LEVEMIR) 100 UNITS/ML UNITS SQ ONE ×2 (13:06→14:30)
--- NOTE | 2018-02-14 13:55 | EKG ---
Test Reason : Blood Pressure : / mmHG Vent. Rate : 095 BPM Atrial Rate : 095 BPM P-R Int : 212 ms QRS Dur : 086 ms QT Int : 356 ms P-R-T Axes : 074 -04 050 degrees QTc Int : 447 ms POOR DATA QUALITY, INTERPRETATION MAY BE ADVERSELY AFFECTED SINUS RHYTHM WITH 1ST DEGREE A-V BLOCK SEPTAL INFARCT (CITED ON OR BEFORE 21-JAN-2011) ABNORMAL ECG Confirmed by MD Latisha, Peter ([id number]) on 02/14/2018 1:55:22 PM Referred By: Confirmed By:Peter Good MD
[2018-02-14 14:02] LABS: ALBUMIN 3.3 g/dl (3.4-5.0); ANION GAP 8 (8-16); BLOOD UREA NITROGEN 11 mg/dL (7-18); CALCIUM 8.1 mg/dL (8.5-10.1); CHLORIDE 115 mmol/L (98-107); CO2 25 mmol/L (21-32); GLUCOSE,RANDOM 109 mg/dL (74-106); POTASSIUM 3.8 mmol/L (3.5-5.1); SODIUM 148 mmol/L (136-145)
[2018-02-14 14:06] LABS: ALK PHOS 69 U/L (45-117); BILIRUBIN,TOTAL 0.5 mg/dL (0.2-1.0); CREATININE 0.7 mg/dL (0.7-1.3); SGOT/AST 28 U/L (15-37); SGPT/ALT 28 U/L (12-78); TOT PROT 6.5 g/dl (6.4-8.2)
[2018-02-14] MEDS: SODIUM CHLORIDE 1,000 ML IV SCH ×2 (14:35→15:43)
[2018-02-14] MEDS ORDERED: HEMOQUE TEST 1 EACH EACH ONE (14:58)
[2018-02-14] MEDS ORDERED: INSULIN SLIDING SCALE (NOVOLOG) 1 VIAL SQ SCH ×2 (16:30)
[2018-02-14] MEDS ORDERED: SODIUM CHLORIDE 0.45% 1,000 ML IV SCH ×2 (18:00→19:53)
[2018-02-14] MEDS: SODIUM CHLORIDE 0.45% 1,000 ML IV SCH ×2 (20:20→22:22)
--- NOTE | 2018-02-14 20:38 | CONSULT ---
Consult Consult Specialty:: Pulm/CCM - History of Present Illness Chief Complaint: AMS; DKA History of Present Illness: 73yom with PMHx of IDDM, HTN, hyperlipidemia, seizure disorder who was brought in after having seizures x 2 at home. Report of medication non-compliance by family. In ED had witnessed seizure treated with Versed, Ativan x 4. Labs notable for BG 613, AG 16, K 3.3, La 9.1, acetone 1+. He was given 4 L of Normal Saline and started on Insulin drip at rate of 0.1 u/kg/hr. Head CT-no acute pathology. He was transferred to ICU for treatment of DKA m/l 2/2 medication non-compliance. In ICU pt slightly confused and climbing OOB w/o assistance. AG to 8. Insulin drip weaned and d/c'd. Tolerated po diet. Levemir given. He stated that his son gives him his insulin in the am and sometimes he forgets. He is hemodynamically stable and ready to be transferred to the floor. - History Source History Provided By: Medical Record Limitations to Obtaining History: Poor Historian - Past Medical History LICENSED PLUMBER: Yes: Seizure Cardio/Vascular: Yes: HTN, Hyperlipdemia Gastrointestinal: Yes: Constipation - Alcohol/Substance Use Hx Alcohol Use: No - Smoking History Smoking history: Unknown if ever smoked Have you smoked in the past 12 months: Yes Aproximately how many cigarettes per day: 5 Home Medications - Allergies Allergies/Adverse Reactions: Allergies Allergy/AdvReac Type Severity Reaction Status Date / Time No Known Allergies Allergy Verified 02/14/18 05:05 - Home Medications Home Medications: Ambulatory Orders Phenytoin Na Extended [Dilantin -] 300 mg PO DAILY #90 capsule 09/18/16 Atorvastatin Ca [Lipitor] 20 mg PO HS 02/14/18 Empagliflozin [Jardiance] 25 mg PO DAILY 02/14/18 Insulin Glargine,Hum.rec.anlog [Pily Ocasio] 60 unit SQ DAILY 02/14/18 Sitagliptin Phosphate [Januvia] 50 mg PO DAILY@0700 02/14/18 Family Disease History - Family Disease History Family History: Unable to Obtain Review of Systems Unable to obtain ROS, reason: Pt is poor historian Physical Exam Vital Signs: Vital Signs Temperature 98.0 F 02/14/18 14:00 Pulse Rate 80 02/14/18 20:00 Respiratory Rate 16 02/14/18 20:00 Blood Pressure 133/72 02/14/18 20:00 O2 Sat by Pulse Oximetry (%) 97 02/14/18 12:00 Intake & Output 02/11/18 02/12/18 02/13/18 02/14/18 23:59 23:59 23:59 23:59 Intake Total 600 Balance 600 Weight 76.067 kg Constitutional: Yes: Well Nourished, No Distress Eyes: Yes: Other (Injected sclera) HENT: Yes: Atraumatic Neck: Yes: Supple, Trachea Midline Cardiovascular: Yes: Regular Rate and Rhythm, S1, S2 Respiratory: Yes: Regular Gastrointestinal: Yes: WNL, Normal Bowel Sounds, Soft Renal/: Yes: Incontinence Extremities: Yes: WNL Edema: No Peripheral Pulses WNL: Yes Neurological: Yes: Alert, Confusion ...Motor Strength: WNL Psychiatric: Yes: Alert (Restless) Labs: CBC, BMP 02/14/18 04:00 02/14/18 12:50 CBC,CMP WBC 7.2 K/mm3 (4.0-10.0) D 02/14/18 04:00 RBC 5.39 M/mm3 (4.00-5.60) 02/14/18 04:00 Hgb 16.0 GM/dL (11.7-16.9) D 02/14/18 04:00 Hct 47.6 % (35.4-49) 02/14/18 04:00 MCV 88.4 fl (80-96) 02/14/18 04:00 MCH 29.7 pg (25.7-33.7) 02/14/18 04:00 MCHC 33.6 g/dl (32.0-35.9) 02/14/18 04:00 RDW 13.8 % (11.9-15.9) 02/14/18 04:00 Plt Count 183 K/MM3 (134-434) D 02/14/18 04:00 MPV 10.8 fl (7.5-11.1) 02/14/18 04:00 Neutrophils % 46.6 % (42.8-82.8) D 02/14/18 04:00 Lymphocytes % 43.7 % (8-40) H D 02/14/18 04:00 Monocytes % 7.1 % (3.8-10.2) 02/14/18 04:00 Eosinophils % 1.6 % (0-4.5) D 02/14/18 04:00 Basophils % 1.0 % (0-2.0) 02/14/18 04:00 Sodium 148 mmol/L (136-145) H 02/14/18 12:50 Potassium 3.8 mmol/L (3.5-5.1) 02/14/18 12:50 Chloride 115 mmol/L (98-107) H D 02/14/18 12:50 Carbon Dioxide 25 mmol/L (21-32) 02/14/18 12:50 Anion Gap 8 (8-16) 02/14/18 12:50 BUN 11 mg/dL (7-18) D 02/14/18 12:50 Creatinine 0.7 mg/dL (0.7-1.3) D 02/14/18 12:50 Creat Clearance w eGFR > 60 (>60) 02/14/18 12:50 POC Glucometer 129.98992 UNITS (80-120) 02/14/18 17:31 Random Glucose 109 mg/dL (74-106) H D 02/14/18 12:50 Lactic Acid 1.8 mmol/L (0.0-2.0) 02/14/18 16:00 Calcium 8.1 mg/dL (8.5-10.1) L 02/14/18 12:50 Total Bilirubin 0.5 mg/dL (0.2-1.0) 02/14/18 12:50 AST 28 U/L (15-37) D 02/14/18 12:50 ALT 28 U/L (12-78) 02/14/18 12:50 Alkaline Phosphatase 69 U/L (45-117) 02/14/18 12:50 Troponin I < 0.02 ng/ml (0.00-0.05) 02/14/18 05:45 Total Protein 6.5 g/dl (6.4-8.2) 02/14/18 12:50 Albumin 3.3 g/dl (3.4-5.0) L 02/14/18 12:50 Imaging - Results Chest X-ray: Report Reviewed Problem List - Problems (1) DKA (diabetic ketoacidoses) Code(s): E13.10 - OTH DIABETES MELLITUS WITH KETOACIDOSIS WITHOUT COMA (2) Elevated lactic acid level Code(s): R79.89 - OTHER SPECIFIED ABNORMAL FINDINGS OF BLOOD CHEMISTRY (3) Seizure Code(s): R56.9 - UNSPECIFIED CONVULSIONS (4) Hyperglycemia due to type 1 diabetes mellitus Code(s): E10.65 - TYPE 1 DIABETES MELLITUS WITH HYPERGLYCEMIA Assessment/Plan 73yom with PMHx of IDDM, HTN, hyperlipidemia, seizure disorder who was transferred to ICU with seizures in the setting of DKA m/l 2/2 med non- compliance. Now improved. AG closed. Is tolerating po and is started on Levemir. Remains confused bu no seizure activity noted. He is hemodynamically stable and is ready for transfer to the floor.
[2018-02-14] MEDS ORDERED: INSULIN (NOVOLOG) ASPART 100 UNITS/ML 10ML VIAL ONE (21:14)
[2018-02-14] MEDS ORDERED: levETIRAcetam 500 MG/5 ML ORAL SOLUTION (UNIT-DOSE CUPS) PO SCH (22:00)
[2018-02-14] MEDS ORDERED: HEPARIN NA (PORCINE) 5,000 UNITS/ML 1ML VIAL SQ SCH (22:00)
[2018-02-14] MEDS ORDERED: MUPIROCIN 2% TOPICAL OINTMENT FOR DECOLONIZATION NS SCH ×2 (22:00)
[2018-02-14] MEDS ORDERED: CHLORHEXIDINE GLUCONATE 4% CLEANSER FOR DECOLONIZATION TP SCH ×2 (22:00)
[2018-02-14] MEDS ORDERED: ATORVASTATIN CA 20 MG TABLET (FP) PO SCH (22:00)
[2018-02-14] MEDS: levETIRAcetam 500 MG/5 ML ORAL SOLUTION (UNIT-DOSE CUPS) PO SCH (22:26)
[2018-02-14] MEDS: HEPARIN NA (PORCINE) 5,000 UNITS/ML 1ML VIAL SQ SCH (22:26)
[2018-02-14] MEDS: ATORVASTATIN CA 20 MG TABLET (FP) PO SCH (22:26)
[2018-02-14] MEDS: INSULIN SLIDING SCALE (NOVOLOG) 1 VIAL SQ SCH (22:27)
[2018-02-15] MEDS: INSULIN SLIDING SCALE (NOVOLOG) 1 VIAL SQ SCH ×4 (06:02→21:44)
[2018-02-15] MEDS ORDERED: ACETAMINOPHEN 325 MG TABLET (FP) PO ONE (06:05)
[2018-02-15] MEDS ORDERED: PT OWN MED DRAWER 7, Y5N ONE ×3 (07:16→21:30)
[2018-02-15] MEDS ORDERED: INSULIN (NOVOLOG) ASPART 100 UNITS/ML 10ML VIAL ONE ×2 (07:16→11:42)
[2018-02-15 08:54] LABS: BASO % 0.8 % (0-2.0); EOS % 1.1 % (0-4.5); HEMATOCRIT 41.6 % (35.4-49); LYMPH % 28.5 % (8-40); MCH 29.2 pg (25.7-33.7); MCHC 33.6 g/dl (32.0-35.9); MEAN CELL VOLUME 86.9 fl (80-96); MEAN PLT VOLUME 10.5 fl (7.5-11.1); MONO % 7.5 % (3.8-10.2); NEUT % 62.1 % (42.8-82.8); PLATELET COUNT 140 K/MM3 (134-434); RBC 4.79 M/mm3 (4.00-5.60); RDW 13.2 % (11.9-15.9); WHITE BLOOD COUNT 5.8 K/mm3 (4.0-10.0)
[2018-02-15] MEDS: HEPARIN NA (PORCINE) 5,000 UNITS/ML 1ML VIAL SQ SCH ×2 (09:24→21:46)
[2018-02-15] MEDS: PHENYTOIN NA EXTENDED 100 MG CAPSULE (FP) PO SCH (09:26)
[2018-02-15] MEDS: levETIRAcetam 500 MG/5 ML ORAL SOLUTION (UNIT-DOSE CUPS) PO SCH ×2 (09:26→21:48)
[2018-02-15] MEDS ORDERED: PHENYTOIN NA EXTENDED 100 MG CAPSULE (FP) PO SCH (10:00)
[2018-02-15] MEDS ORDERED: INSULIN (LEVEMIR) 100 UNITS/ML UNITS SQ ONE ×2 (10:00→16:21)
[2018-02-15] MEDS ORDERED: INSULIN (LEVEMIR) 100 UNITS/ML UNITS SQ SCH ×3 (10:00→22:00)
[2018-02-15 10:30] LABS: CHLORIDE 113 mmol/L (98-107); POTASSIUM 3.8 mmol/L (3.5-5.1); SODIUM 145 mmol/L (136-145)
[2018-02-15 11:52] LABS: ALBUMIN 2.9 g/dl (3.4-5.0); ALK PHOS 56 U/L (45-117); ANION GAP 7 (8-16); BILIRUBIN,TOTAL 0.8 mg/dL (0.2-1.0); BLOOD UREA NITROGEN 11 mg/dL (7-18); CO2 25 mmol/L (21-32); CREATININE 0.6 mg/dL (0.7-1.3); GLUCOSE,RANDOM 83 mg/dL (74-106); PHOSPHOROUS 2.7 mg/dL (2.5-4.9); SGOT/AST 34 U/L (15-37); SGPT/ALT 25 U/L (12-78); TOT PROT 5.6 g/dl (6.4-8.2)
--- NOTE | 2018-02-15 15:11 | PN ---
Physical Exam: SUBJECTIVE: Patient seen and examined. Was admitted for DKA and managed with insulin drip in ICU. Anion gap closed within 2 hours and patient was transferred to floors. Pt does not remember what had happened. Says his son gives him his insulin (when he remembers). No abdominal pain, no chest pain or shortness of breath. Reports headache that is relieved with tylenol. Pt has started eating. OBJECTIVE: Vital Signs Period Temp Pulse Resp BP Sys/Yung Pulse Ox Last 24 Hr 97.5 F-98.9 F 68-82 14-18 112-152/59-89 96 Vital Signs Temp 97.5 F L 02/15/18 14:53 Pulse 68 02/15/18 14:53 Resp 18 02/15/18 14:53 BP 135/89 02/15/18 14:53 Pulse Ox 96 02/14/18 23:00 Intake & Output 02/12/18 02/13/18 02/14/18 02/15/18 23:59 23:59 23:59 23:59 Intake Total 804 588 Balance 804 588 Weight 76.067 kg Intake & Output 02/14/18 02/15/18 02/15/18 23:59 11:59 23:59 Intake Total 804 294 294 Balance 804 294 294 Weight 76.067 kg Intake: IV 684 294 294 1/2 Normal Saline 1,000 125 ml @ 125 mls/hr IV ASDIR [facility] Rx#:[id number] 1/2 Normal Saline 1,000 84 294 294 ml @ 42 mls/hr IV ASDIR [facility] Rx#:[id number] D5-1/2NS+40 MEQ KCL - 40 375 meq In 1,000 ml @ 125 mls /hr IV ASDIR [facility] Rx#: [id number] Normal Saline - 1,000 ml 100 @ 100 mls/hr IV ASDIR MILTON Rx#:[id number] Oral 120 Other: Voiding Method Incontinent Diaper # Unmeasured Voids Void 1 Bowel Movement No Yes Weight Measurement Method Built in Bedscale GENERAL: The patient is awake, alert, and fully oriented, in no acute distress. HEAD: Normal with no signs of trauma. EYES: PERRL, extraocular movements intact, ENT: Edentulous, moist mucous membranes. NECK: Trachea midline, full range of motion, supple. LUNGS: Breath sounds equal, clear to auscultation bilaterally, HEART: Regular rate and rhythm, S1, S2 ABDOMEN: Soft, nontender, nondistended, normoactive bowel sounds, no guarding EXTREMITIES: 2+ pulses, warm, well-perfused, no edema. NEUROLOGICAL: Cranial nerves II through XII grossly intact. No facial droop. Normal speech, gait not observed. PSYCH: Normal mood, normal affect. CBC, BMP 02/15/18 06:00 02/15/18 06:00 Laboratory Results - last 24 hr 02/14/18 02/14/18 02/14/18 12:50 16:00 17:31 WBC RBC Hgb Hct MCV MCH MCHC RDW Plt Count MPV Neutrophils % Lymphocytes % Monocytes % Eosinophils % Basophils % Sodium Potassium Chloride Carbon Dioxide Anion Gap BUN Creatinine Creat Clearance w eGFR POC Glucometer 129.39072 Random Glucose Hemoglobin A1c % Lactic Acid 1.8 Calcium Phosphorus Magnesium Total Bilirubin AST ALT Alkaline Phosphatase Total Protein Albumin Phenytoin < 2.5 L 02/14/18 02/15/18 02/15/18 21:06 05:59 06:00 WBC 5.8 RBC 4.79 Hgb 14.0 D Hct 41.6 MCV 86.9 MCH 29.2 MCHC 33.6 RDW 13.2 Plt Count 140 D MPV 10.5 Neutrophils % 62.1 D Lymphocytes % 28.5 D Monocytes % 7.5 Eosinophils % 1.1 Basophils % 0.8 Sodium Potassium Chloride Carbon Dioxide Anion Gap BUN Creatinine Creat Clearance w eGFR POC Glucometer 190 101 Random Glucose Hemoglobin A1c % Lactic Acid Calcium Phosphorus Magnesium Total Bilirubin AST ALT Alkaline Phosphatase Total Protein Albumin Phenytoin 02/15/18 02/15/18 02/15/18 06:00 06:00 06:00 WBC RBC Hgb Hct MCV MCH MCHC RDW Plt Count MPV Neutrophils % Lymphocytes % Monocytes % Eosinophils % Basophils % Sodium 145 Potassium 3.8 Chloride 113 H Carbon Dioxide 25 Anion Gap 7 L BUN 11 Creatinine 0.6 L Creat Clearance w eGFR > 60 POC Glucometer Random Glucose 83 D Hemoglobin A1c % 14.5 H D Lactic Acid 1.0 Calcium 8.0 L Phosphorus 2.7 Magnesium 2.0 Total Bilirubin 0.8 D AST 34 D ALT 25 Alkaline Phosphatase 56 Total Protein 5.6 L Albumin 2.9 L Phenytoin 02/15/18 11:35 WBC RBC Hgb Hct MCV MCH MCHC RDW Plt Count MPV Neutrophils % Lymphocytes % Monocytes % Eosinophils % Basophils % Sodium Potassium Chloride Carbon Dioxide Anion Gap BUN Creatinine Creat Clearance w eGFR POC Glucometer 240 Random Glucose Hemoglobin A1c % Lactic Acid Calcium Phosphorus Magnesium Total Bilirubin AST ALT Alkaline Phosphatase Total Protein Albumin Phenytoin Microbiology 02/14/18 04:50 Urine - Urine Clean Catch Urine Culture - Final NO GROWTH OBTAINED 02/14/18 04:30 Blood - Peripheral Venous Blood Culture - Preliminary NO GROWTH OBTAINED AFTER 24 HOURS, INCUBATION TO CONTINUE FOR 4 DAYS. 02/14/18 04:00 Blood - Peripheral Venous Blood Culture - Preliminary NO GROWTH OBTAINED AFTER 24 HOURS, INCUBATION TO CONTINUE FOR 4 DAYS. Active Medications Generic Name Dose Route Start Last Admin Trade Name Freq PRN Reason Stop Dose Admin Atorvastatin Calcium 20 mg 02/14/18 22:00 02/14/18 22:26 Lipitor - PO 20 mg HS MILTON Administration Heparin Sodium (Porcine) 5,000 unit 02/14/18 22:00 02/15/18 09:24 Heparin - SQ 5,000 unit BID [facility] Administration Insulin Aspart 1 vial 02/14/18 22:00 02/15/18 12:01 Novolog Vial Sliding Scale - SQ 4 unit ACHS MIL[facility] Administration Protocol Insulin Detemir 10 units 02/15/18 10:00 02/15/18 12:01 Levemir Vial SQ 10 units DAILY [facility] Administration Levetiracetam 750 mg 02/14/18 22:00 02/15/18 09:26 Keppra Oral Solution - PO 750 mg BID [facility] Administration Phenytoin Sodium 300 mg 02/15/18 10:00 02/15/18 09:26 Dilantin - PO 300 mg DAILY [facility] Administration ASSESSMENT/PLAN: The Pt is a 73 yo M with a signif PMHx of IDDM, HTN, hyperlipidemia, seizure disorder that presented to the hospital s/p seizures x 2 at home and is admitted for DKA, s/p seizures. 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 to be able to receive his medications as due -D/C fluids S/P Seizures: -possibly related to hyperglycemia, not compliance to home medications -elevated LA, f/u next one down to 3.9, f/u at 4 PM -CT no acute pathology, no hemorrhage -neuro checks -fall risk precautions -please continue Keppra 750 mg BID Hypokalemia: -follow up CMP -repleated -no EKG changes HTN: -controlled -not on medications FEN: Diabetic diet PO fluids Dispo: For likely discharge tomorrow with VNS per [facility] Visit type - Emergency Visit Emergency Visit: Yes ED Registration Date: 02/14/18 Care time: The patient presented to the Emergency Department on the above date and was hospitalized for further evaluation of their emergent condition. - New Patient This patient is new to me today: Yes Date on this admission: 02/15/18 - Critical Care Critical Care patient: No - Discharge Referral Referred to [facility] Med P.C.: No
--- NOTE | 2018-02-15 15:38 | PN ---
Teaching Attending Note Name of Resident: Denisha Rosario ATTENDING PHYSICIAN STATEMENT I saw and evaluated the patient. I reviewed the resident's note and discussed the case with the resident. I agree with the resident's findings and plan as documented with exceptions below SUBJECTIVE: patient seen and examined. eating lunch, pleasant, no complaints OBJECTIVE: Vital Signs Period Temp Pulse Resp BP Sys/Yung Pulse Ox Last 24 Hr 97.5 F-98.9 F 68-82 14-18 112-152/59-89 96 Intake & Output 02/12/18 02/13/18 02/14/18 02/15/18 23:59 23:59 23:59 23:59 Intake Total 804 588 Balance 804 588 Weight 167 lb 11.2 oz General: sitting in wheelchair in no acute distress Chest: CTAB, no rales or wheezing abdomen: soft, NT, ND extremities: no edema Home Medication List Medication Instructions Recorded Confirmed Type Atorvastatin Ca [Lipitor] 20 mg PO HS 02/14/18 02/14/18 History Empagliflozin [Jardiance] 25 mg PO DAILY 02/14/18 02/14/18 History Insulin Glargine,Hum.rec.anlog 60 unit SQ DAILY 02/14/18 02/14/18 History [Toujeo Solostar] Sitagliptin Phosphate [Januvia] 50 mg PO DAILY@0700 02/14/18 02/14/18 History Glycopyrrolate/Formoterol Fum 1 puff IH DAILY 02/15/18 02/15/18 History [Bevespi Aerosphere Inhaler] Linaclotide [Linzess] 145 mcg PO DAILY 02/15/18 02/15/18 History Active Medications Generic Name Dose Route Start Last Admin Trade Name Mortezaq PRN Reason Stop Dose Admin Atorvastatin Calcium 20 mg 02/14/18 22:00 02/14/18 22:26 Lipitor - PO 20 mg HS MILTON Administration Heparin Sodium (Porcine) 5,000 unit 02/14/18 22:00 02/15/18 09:24 Heparin - SQ 5,000 unit BID [facility] Administration Insulin Aspart 1 vial 02/14/18 22:00 02/15/18 12:01 Novolog Vial Sliding Scale - SQ 4 unit ACHS MIL[facility] Administration Protocol Insulin Detemir 10 units 02/15/18 10:00 02/15/18 12:01 Levemir Vial SQ 10 units DAILY [facility] Administration Levetiracetam 750 mg 02/14/18 22:00 02/15/18 09:26 Keppra Oral Solution - PO 750 mg BID [facility] Administration Phenytoin Sodium 300 mg 02/15/18 10:00 02/15/18 09:26 Dilantin - PO 300 mg DAILY [facility] Administration Laboratory Results - last 24 hr 02/14/18 02/14/18 02/14/18 12:50 16:00 17:31 WBC RBC Hgb Hct MCV MCH MCHC RDW Plt Count MPV Neutrophils % Lymphocytes % Monocytes % Eosinophils % Basophils % Sodium Potassium Chloride Carbon Dioxide Anion Gap BUN Creatinine Creat Clearance w eGFR POC Glucometer 129.98677 Random Glucose Hemoglobin A1c % Lactic Acid 1.8 Calcium Phosphorus Magnesium Total Bilirubin AST ALT Alkaline Phosphatase Total Protein Albumin Phenytoin < 2.5 L 02/14/18 02/15/18 02/15/18 21:06 05:59 06:00 WBC 5.8 RBC 4.79 Hgb 14.0 D Hct 41.6 MCV 86.9 MCH 29.2 MCHC 33.6 RDW 13.2 Plt Count 140 D MPV 10.5 Neutrophils % 62.1 D Lymphocytes % 28.5 D Monocytes % 7.5 Eosinophils % 1.1 Basophils % 0.8 Sodium Potassium Chloride Carbon Dioxide Anion Gap BUN Creatinine Creat Clearance w eGFR POC Glucometer 190 101 Random Glucose Hemoglobin A1c % Lactic Acid Calcium Phosphorus Magnesium Total Bilirubin AST ALT Alkaline Phosphatase Total Protein Albumin Phenytoin 02/15/18 02/15/18 02/15/18 06:00 06:00 06:00 WBC RBC Hgb Hct MCV MCH MCHC RDW Plt Count MPV Neutrophils % Lymphocytes % Monocytes % Eosinophils % Basophils % Sodium 145 Potassium 3.8 Chloride 113 H Carbon Dioxide 25 Anion Gap 7 L BUN 11 Creatinine 0.6 L Creat Clearance w eGFR > 60 POC Glucometer Random Glucose 83 D Hemoglobin A1c % 14.5 H D Lactic Acid 1.0 Calcium 8.0 L Phosphorus 2.7 Magnesium 2.0 Total Bilirubin 0.8 D AST 34 D ALT 25 Alkaline Phosphatase 56 Total Protein 5.6 L Albumin 2.9 L Phenytoin 02/15/18 11:35 WBC RBC Hgb Hct MCV MCH MCHC RDW Plt Count MPV Neutrophils % Lymphocytes % Monocytes % Eosinophils % Basophils % Sodium Potassium Chloride Carbon Dioxide Anion Gap BUN Creatinine Creat Clearance w eGFR POC Glucometer 240 Random Glucose Hemoglobin A1c % Lactic Acid Calcium Phosphorus Magnesium Total Bilirubin AST ALT Alkaline Phosphatase Total Protein Albumin Phenytoin Microbiology 02/14/18 04:50 Urine - Urine Clean Catch Urine Culture - Final NO GROWTH OBTAINED 02/14/18 04:30 Blood - Peripheral Venous Blood Culture - Preliminary NO GROWTH OBTAINED AFTER 24 HOURS, INCUBATION TO CONTINUE FOR 4 DAYS. 02/14/18 04:00 Blood - Peripheral Venous Blood Culture - Preliminary NO GROWTH OBTAINED AFTER 24 HOURS, INCUBATION TO CONTINUE FOR 4 DAYS. ASSESSMENT AND PLAN: 73 yom with PMHx of IDDM, HTN, hyperlipidemia, seizure disorder admitted with seizure x 3 and DKA in the setting of non compliance. -SEizure x 3 -DKA, resolved -IDDM -Medication non compliance -HTN -HLD Plan: anion gap closed. Start levemir 10 units daily. ISS. COnfirm home meds. Resume januvia in 24 hours based on blood sugars. Compliance stressed with grand son and patient, continue phenytoin. No driving,operating heavy machinery, being alone in water, on heights or with children. Continue lipitor DVTPPX dispo in 24 hours if no new concerns. PT eval, medication compliance counseling and VNS if patient/family agreable. Plan discussed with patient and grandson at bedside in detail, all questions answered.
[2018-02-15] MEDS: ATORVASTATIN CA 20 MG TABLET (FP) PO SCH (21:47)
[2018-02-16] MEDS: INSULIN SLIDING SCALE (NOVOLOG) 1 VIAL SQ SCH ×3 (06:47→17:01)
[2018-02-16] MEDS ORDERED: INSULIN (LEVEMIR) 100 UNITS/ML UNITS SQ SCH (07:00)
[2018-02-16] MEDS ORDERED: PT OWN MED DRAWER 7, Y5N ONE (07:02)
[2018-02-16] MEDS ORDERED: INSULIN (NOVOLOG) ASPART 100 UNITS/ML 10ML VIAL ONE ×3 (07:02→13:04)
--- NOTE | 2018-02-16 07:37 | PN ---
Physical Exam: SUBJECTIVE: Patient seen and examined. No new complaints this am. No abdominal pain, vomiting or chest pain. Pt wants to go home. OBJECTIVE: Vital Signs Period Temp Pulse Resp BP Sys/Yung Pulse Ox Last 24 Hr 97.5 F-98.3 F 61-82 18-20 126-158/59-91 98 GENERAL: The patient is awake, alert, and fully oriented, in no acute distress. HEAD: Normal with no signs of trauma. EYES: PERRL, extraocular movements intact, sclera anicteric, conjunctiva clear. No ptosis. ENT: Ears normal, nares patent, oropharynx clear without exudates, moist mucous membranes. NECK: Trachea midline, full range of motion, supple. LUNGS: Breath sounds equal, clear to auscultation bilaterally, no wheezes, no crackles, no accessory muscle use. HEART: Regular rate and rhythm, S1, S2 without murmur, rub or gallop. ABDOMEN: Soft, nontender, nondistended, normoactive bowel sounds, no guarding, no rebound, no hepatosplenomegaly, no masses. EXTREMITIES: 2+ pulses, warm, well-perfused, no edema. NEUROLOGICAL: Cranial nerves II through XII grossly intact. Normal speech, gait not observed. PSYCH: Normal mood, normal affect. SKIN: Warm, dry, normal turgor, no rashes or lesions noted Laboratory Results - last 24 hr 02/15/18 02/15/18 02/15/18 06:00 06:00 06:00 WBC 5.8 RBC 4.79 Hgb 14.0 D Hct 41.6 MCV 86.9 MCH 29.2 MCHC 33.6 RDW 13.2 Plt Count 140 D MPV 10.5 Neutrophils % 62.1 D Lymphocytes % 28.5 D Monocytes % 7.5 Eosinophils % 1.1 Basophils % 0.8 Sodium 145 Potassium 3.8 Chloride 113 H Carbon Dioxide 25 Anion Gap 7 L BUN 11 Creatinine 0.6 L Creat Clearance w eGFR > 60 POC Glucometer Random Glucose 83 D Hemoglobin A1c % 14.5 H D Lactic Acid Calcium 8.0 L Phosphorus 2.7 Magnesium 2.0 Total Bilirubin 0.8 D AST 34 D ALT 25 Alkaline Phosphatase 56 Total Protein 5.6 L Albumin 2.9 L 02/15/18 02/15/18 02/15/18 06:00 11:35 16:44 WBC RBC Hgb Hct MCV MCH MCHC RDW Plt Count MPV Neutrophils % Lymphocytes % Monocytes % Eosinophils % Basophils % Sodium Potassium Chloride Carbon Dioxide Anion Gap BUN Creatinine Creat Clearance w eGFR POC Glucometer 240 323 Random Glucose Hemoglobin A1c % Lactic Acid 1.0 Calcium Phosphorus Magnesium Total Bilirubin AST ALT Alkaline Phosphatase Total Protein Albumin 02/15/18 02/16/18 21:42 06:43 WBC RBC Hgb Hct MCV MCH MCHC RDW Plt Count MPV Neutrophils % Lymphocytes % Monocytes % Eosinophils % Basophils % Sodium Potassium Chloride Carbon Dioxide Anion Gap BUN Creatinine Creat Clearance w eGFR POC Glucometer 237 195 Random Glucose Hemoglobin A1c % Lactic Acid Calcium Phosphorus Magnesium Total Bilirubin AST ALT Alkaline Phosphatase Total Protein Albumin Active Medications Generic Name Dose Route Start Last Admin Trade Name Freq PRN Reason Stop Dose Admin Atorvastatin Calcium 20 mg 02/14/18 22:00 02/15/18 21:47 Lipitor - PO 20 mg HS [facility] Administration Heparin Sodium (Porcine) 5,000 unit 02/14/18 22:00 02/15/18 21:46 Heparin - SQ 5,000 unit BID [facility] Administration Insulin Aspart 1 vial 02/14/18 22:00 02/16/18 06:47 Novolog Vial Sliding Scale - SQ 2 unit ACHS MILTON Administration Protocol Insulin Detemir 15 units 02/16/18 07:00 02/16/18 06:45 Levemir Vial SQ 15 unit DAILY@0700 MIL[facility] Administration Levetiracetam 750 mg 02/14/18 22:00 02/15/18 21:48 Keppra Oral Solution - PO 750 mg BID MIL[facility] Administration Phenytoin Sodium 300 mg 02/15/18 10:00 02/15/18 09:26 Dilantin - PO 300 mg DAILY MILTON Administration ASSESSMENT/PLAN:
[2018-02-16 08:05] LABS: BASO % 1.3 % (0-2.0); EOS % 2.8 % (0-4.5); HEMATOCRIT 40.8 % (35.4-49); HEMOGLOBIN 13.9 GM/dL (11.7-16.9); LYMPH % 37.7 % (8-40); MCH 29.4 pg (25.7-33.7); MEAN CELL VOLUME 86.7 fl (80-96); MEAN PLT VOLUME 10.5 fl (7.5-11.1); MONO % 8.5 % (3.8-10.2); NEUT % 49.7 % (42.8-82.8); PLATELET COUNT 138 K/MM3 (134-434); RBC 4.71 M/mm3 (4.00-5.60); RDW 13.3 % (11.9-15.9); WHITE BLOOD COUNT 4.6 K/mm3 (4.0-10.0)
--- NOTE | 2018-02-16 08:33 | PN ---
Teaching Attending Note Name of Resident: Denisha Rosario ATTENDING PHYSICIAN STATEMENT I saw and evaluated the patient. I reviewed the resident's note and discussed the case with the resident. I agree with the resident's findings and plan as documented with exceptions below. SUBJECTIVE: Patient seen and examined, no concerns. OBJECTIVE: Vital Signs Period Temp Pulse Resp BP Sys/Yung Pulse Ox Last 24 Hr 97.5 F-98.3 F 61-82 18-20 126-158/59-91 98 Intake & Output 02/13/18 02/14/18 02/15/18 02/16/18 23:59 23:59 23:59 23:59 Intake Total 804 828 200 Balance 804 828 200 Weight 167 lb 11.2 oz general:sitting in wheelchair, no acute distress, ambulating with no concerns Home Medication List Medication Instructions Recorded Confirmed Type Atorvastatin Ca [Lipitor] 20 mg PO HS 02/14/18 02/14/18 History Empagliflozin [Jardiance] 25 mg PO DAILY 02/14/18 02/14/18 History Insulin Glargine,Hum.rec.anlog 60 unit SQ DAILY 02/14/18 02/14/18 History [Toujeo Solostar] Sitagliptin Phosphate [Januvia -] 50 mg PO DAILY@0700 02/14/18 02/14/18 History Glycopyrrolate/Formoterol Fum 1 puff IH DAILY 02/15/18 02/15/18 History [Bevespi Aerosphere Inhaler] Linaclotide [Linzess] 145 mcg PO DAILY 02/15/18 02/15/18 History Active Medications Generic Name Dose Route Start Last Admin Trade Name Rolo PRN Reason Stop Dose Admin Atorvastatin Calcium 20 mg 02/14/18 22:00 02/15/18 21:47 Lipitor - PO 20 mg HS MITLON Administration Heparin Sodium (Porcine) 5,000 unit 02/14/18 22:00 02/15/18 21:46 Heparin - SQ 5,000 unit BID [facility] Administration Insulin Aspart 1 vial 02/14/18 22:00 02/16/18 06:47 Novolog Vial Sliding Scale - SQ 2 unit ACHS MILTON Administration Protocol Insulin Detemir 15 units 02/16/18 07:00 02/16/18 06:45 Levemir Vial SQ 15 unit DAILY@0700 MIL[facility] Administration Levetiracetam 750 mg 02/14/18 22:00 02/15/18 21:48 Keppra Oral Solution - PO 750 mg BID MIL[facility] Administration Phenytoin Sodium 300 mg 02/15/18 10:00 02/15/18 09:26 Dilantin - PO 300 mg DAILY MILTON Administration Microbiology 02/14/18 04:30 Blood - Peripheral Venous Blood Culture - Preliminary NO GROWTH OBTAINED AFTER 48 HOURS, INCUBATION TO CONTINUE FOR 3 DAYS. 02/14/18 04:00 Blood - Peripheral Venous Blood Culture - Preliminary NO GROWTH OBTAINED AFTER 48 HOURS, INCUBATION TO CONTINUE FOR 3 DAYS. 02/14/18 04:50 Urine - Urine Clean Catch Urine Culture - Final NO GROWTH OBTAINED ASSESSMENT AND PLAN: 73 yom with PMHx of IDDM, HTN, hyperlipidemia, seizure disorder admitted with seizure x 3 and DKA in the setting of non compliance. -Seizure x 3 -DKA, resolved -IDDM -Medication non compliance -HTN -HLD Plan: Discussed with Dr. Escobar, recommend continuing dilantin 300 mg and Keppra 750 mg BID on d/c with outpatient follow up. Discussed with PCP Dr. Justice Chris. Patient with prior h/o noncompliance and last A1c 15. Recommends continuing his home regimen with levemir 60 units daily, Jardiance and Januvia as is not worried about hypoglycemia. Also informed that keppra will be added to his regimen. Again medication,dietary and follow up compliance stressed with patient. D/c home today on current home regimen with addition of keppra. Plan discussed with patient in detail, all questions answered. .
[2018-02-16 08:48] LABS: CHLORIDE 109 mmol/L (98-107); POTASSIUM 3.9 mmol/L (3.5-5.1); SODIUM 143 mmol/L (136-145)
[2018-02-16 08:57] LABS: ALBUMIN 2.8 g/dl (3.4-5.0); ALK PHOS 58 U/L (45-117); ANION GAP 6 (8-16); BILIRUBIN,TOTAL 0.9 mg/dL (0.2-1.0); BLOOD UREA NITROGEN 14 mg/dL (7-18); CALCIUM 8.1 mg/dL (8.5-10.1); CO2 28 mmol/L (21-32); CREATININE 0.8 mg/dL (0.7-1.3); GLUCOSE,RANDOM 203 mg/dL (74-106); PHOSPHOROUS 3.2 mg/dL (2.5-4.9); SGOT/AST 39 U/L (15-37); SGPT/ALT 31 U/L (12-78); TOT PROT 5.6 g/dl (6.4-8.2)
[2018-02-16] MEDS: PHENYTOIN NA EXTENDED 100 MG CAPSULE (FP) PO SCH (10:28)
[2018-02-16] MEDS: levETIRAcetam 500 MG/5 ML ORAL SOLUTION (UNIT-DOSE CUPS) PO SCH (10:28)
[2018-02-16] MEDS: HEPARIN NA (PORCINE) 5,000 UNITS/ML 1ML VIAL SQ SCH (10:29)
[2018-02-16] MEDS ORDERED: levETIRAcetam 250 MG TABLET (FP) PO SCH ×2 (11:45)
--- NOTE | 2018-02-16 12:03 | DS ---
Physical Exam: SUBJECTIVE: Patient seen and examined. No new complaints this am. No abdominal pain, vomiting, no headache and no seizures. He is tolerating food well. Pt wants to go home. OBJECTIVE: Vital Signs Period Temp Pulse Resp BP Sys/Yung Pulse Ox Last 24 Hr 97.5 F-98.5 F 61-89 18-20 126-158/80-91 98 Vital Signs Temp 98.5 F 02/16/18 10:00 Pulse 89 02/16/18 10:00 Resp 20 02/16/18 10:00 BP 141/89 02/16/18 10:00 Pulse Ox 98 02/15/18 21:57 Intake & Output 02/15/18 02/15/18 02/16/18 11:59 23:59 11:59 Intake Total 294 534 200 Balance 294 534 200 Intake: IV 294 294 1/2 Normal Saline 1,000 294 294 ml @ 42 mls/hr IV ASDIR MILTON Rx#:[id number] Oral 240 200 Other: Voiding Method Diaper Toilet Toilet # Unmeasured Voids Void 1 1 Bowel Movement No Yes No PHYSICAL EXAM GENERAL: The patient is awake, alert, and fully oriented, in no acute distress. HEAD: Normal with no signs of trauma. EYES: PERRL, extraocular movements intact ENT: moist mucous membranes. NECK: Trachea midline, full range of motion, supple. LUNGS: Breath sounds equal, clear to auscultation bilaterally, no wheezes, no crackles HEART: Regular rate and rhythm, S1, S2 ABDOMEN: Soft, nontender, nondistended, normoactive bowel sounds EXTREMITIES: 2+ pulses, warm, well-perfused, no edema. NEUROLOGICAL: AAOx3. Normal speech, normal gait, no facial droop. CBC, BMP 02/16/18 06:00 02/16/18 06:00 LABS Laboratory Results - last 24 hr 02/15/18 02/15/18 02/15/18 06:00 06:00 16:44 WBC RBC Hgb Hct MCV MCH MCHC RDW Plt Count MPV Neutrophils % Lymphocytes % Monocytes % Eosinophils % Basophils % Sodium 145 Potassium 3.8 Chloride 113 H Carbon Dioxide 25 Anion Gap 7 L BUN 11 Creatinine 0.6 L Creat Clearance w eGFR > 60 POC Glucometer 323 Random Glucose 83 D Hemoglobin A1c % 14.5 H D Calcium 8.0 L Phosphorus 2.7 Magnesium 2.0 Total Bilirubin 0.8 D AST 34 D ALT 25 Alkaline Phosphatase 56 Total Protein 5.6 L Albumin 2.9 L 02/15/18 02/16/18 02/16/18 21:42 06:00 06:00 WBC 4.6 RBC 4.71 Hgb 13.9 Hct 40.8 MCV 86.7 MCH 29.4 MCHC 34.0 RDW 13.3 Plt Count 138 MPV 10.5 Neutrophils % 49.7 Lymphocytes % 37.7 D Monocytes % 8.5 Eosinophils % 2.8 D Basophils % 1.3 Sodium 143 Potassium 3.9 Chloride 109 H Carbon Dioxide 28 Anion Gap 6 L BUN 14 D Creatinine 0.8 D Creat Clearance w eGFR > 60 POC Glucometer 237 Random Glucose 203 H D Hemoglobin A1c % Calcium 8.1 L Phosphorus 3.2 Magnesium 2.0 Total Bilirubin 0.9 AST 39 H ALT 31 D Alkaline Phosphatase 58 Total Protein 5.6 L Albumin 2.8 L 02/16/18 02/16/18 06:43 11:15 WBC RBC Hgb Hct MCV MCH MCHC RDW Plt Count MPV Neutrophils % Lymphocytes % Monocytes % Eosinophils % Basophils % Sodium Potassium Chloride Carbon Dioxide Anion Gap BUN Creatinine Creat Clearance w eGFR POC Glucometer 195 258 Random Glucose Hemoglobin A1c % Calcium Phosphorus Magnesium Total Bilirubin AST ALT Alkaline Phosphatase Total Protein Albumin HOSPITAL COURSE: Date of Admission:02/14/18 Date of Discharge: 02/16/18 PreHospital course: The Pt is a 73 yo M with a signif PMHx of IDDM, HTN, hyperlipidemia, seizure disorder that presented to the hospital s/p seizures x 2 at home and is admitted for DKA, s/p seizures. He had similar presentations to the Emergency room in the past for hyperglycemia and seizures, related to drug compliance. Hospital course: Admission blood glucose was 613, AG was borderline 16, he received insulin drip that closed the gap in 2 hrs, then pt received 15 units of Levemir then was started on ISS. His HgbA1C was -14.5 and he was maintained on 15u levemir with ISS ACHS. He remained awake, alert and oriented, eating and walking around with no evidence of infection. He was placed on Keppra 750 mg in addition to his home dilantin for seizures. He was discharged on all his previous home medications. We discussed with his primary doctor and , prior to discharge. He was discharged home with VNS. Minutes to complete discharge: 42 Discharge Summary Reason For Visit: DIABETIC KETOACIDOSIS,SEIZURE Current Active Problems DKA (diabetic ketoacidoses) (Acute) Elevated lactic acid level (Acute) Seizure (Acute) Condition: Stable - Instructions Diet, Activity, Other Instructions: You were seen here after convulsing. You had not been getting your insulin at home regularly Your sugars were found to be very high and your blood had high levels of acids We treated you with fluids and insulin drip and injections and you improved We are sending you home to have a visiting nurse come and ensure you are correctly taking your insulin to prevent a repeat seizure or loss of consciousness Please follow up with your primary doctor within a week to check your glucose levels If you think your symptoms are worsening, please return to the emergency room No driving, operating heavy machinery, being alone on heights, with children or in water. Strongly advise to check your blood sugars before meals and at bedtime and maintain a diary and notify your doctor if < 75 or persistently > 200 or any reading > 400 noted. Medications: We are adding Keppra 750mg twice a day for your seizures Strongly advise to take all your medications as prescribed. Continue all your diabetes medications as before. Your hospital course has been discussed with your regular medical doctor and you are strongly advised to follow up with him in 1 week. Referrals: Aries Rendon [Primary Care Provider] - 1 Week Disposition: VNS/HOME HEALTH CARE - Home Medications Comprehensive Discharge Medication List: Ambulatory Orders Phenytoin Na Extended [Dilantin -] 300 mg PO DAILY #90 capsule 09/18/16 Atorvastatin Ca [Lipitor] 20 mg PO HS 02/14/18 Empagliflozin [Jardiance] 25 mg PO DAILY 02/14/18 Insulin Glargine,Hum.rec.anlog [Toujeo Solostar] 60 unit SQ DAILY 02/14/18 Sitagliptin Phosphate [Januvia -] 50 mg PO DAILY@0700 02/14/18 Glycopyrrolate/Formoterol Fum [Bevespi Aerosphere Inhaler] 1 puff IH DAILY 02/15 Linaclotide [Linzess] 145 mcg PO DAILY 02/15/18 Insulin Sliding Scale [Novolog Vial Sliding Scale -] 1 vial SQ ACHS #0 units 07/27 levETIRAcetam [Keppra -] 750 mg PO BID 30 Days #180 tablet 02/16/18 This patient is new to me today: No Emergency Visit: Yes ED Registration Date: 02/14/18 Care time: The patient presented to the Emergency Department on the above date and was hospitalized for further evaluation of their emergent condition. Critical Care patient: No - Discharge Referral Referred to [facility] Med P.C.: No
[2018-02-16 17:18] VITALS: BP 141/78; PULSE 65; TEMP 97.4
== END 2018-02-16 19:00 | disposition home health service (06) | DRG 639 ==
LOC: JER 04:09 → JERBED 10:08 → JICU 11:56 → J7W 21:08
PROVIDERS: ADMIT Hospitalist; ATTEND Hospitalist
DX: E11.10 Type 2 diabetes mellitus with ketoacidosis without coma (principal); Z79.4 Long term (current) use of insulin; I10 Essential (primary) hypertension; E78.5 Hyperlipidemia, unspecified; E87.6 Hypokalemia; Z91.14 Patient's other noncompliance with medication regimen; R79.89 Other specified abnormal findings of blood chemistry; G40.909 Epilepsy, unspecified, not intractable, without status epilepticus
CPT/HCPCS: 36415; 36600; 70450-TC; 71045-TC-FY; 80053; 80185; 81003; 82009; 82375; 82803; 82962; 83036; 83050; 83605; 83735; 84100; 84484; 85025; 85610; 85730; 87040; 87086; 93005; 93010; 97116-GP; 97161-GP; 99285-25; J1644; J7030

== ENCOUNTER 2019-01-25 23:16 | Inpatient (IN) | payer BC, OTHER ==
[2019-01-26] MEDS ORDERED: SODIUM CHLORIDE 1,000 ML IV STA ×2 (00:09→01:36)
--- NOTE | 2019-01-26 00:10 | PDOC ---
History of Present Illness - General Chief Complaint: Blood Sugar Problem Stated Complaint: DIABETIC Time Seen by Provider: 01/25/19 23:33 History Source: Patient, Family Exam Limitations: No Limitations - History of Present Illness Initial Comments: 01/26/19 00:06 Pt is a 74yo M with PMH of IDDM, HTN, HLD, BPH, Constipation BIBA after a syncopal v. seizure like episode around 1 hour ago. Per family, pt was stating that his L arm was shaking and then he passed out for about 20 minutes. Fingerstick was in the 500s at home. Per , pt rolled out of bed and fell last night and may have hit his head on the nightstand. He went to urgent care earlier today and given a muscle relaxer. He was fine all day until the shaking episode. He had a similar episode in the past when his sugars are high. Pt seemed to be a bit confused after the episode. Endorses neck/shoulder pain with movement and urinary frequency. Denies chest pain, sob, abdominal pain, n/v/d, headache, back pain, changes in vision, fevers, chills, recent illnesses, sick contacts. Per family, pt is not the most compliant with the insulin, but he did take his insulin today. PMD: Justice PMH: see hpi Meds: 60u and 10u insulin, atorvastatin, Keppra, ASA 81, Flomax Allergies: nkda - Hope () Past History - Past Medical History Allergies/Adverse Reactions: Allergies Allergy/AdvReac Type Severity Reaction Status Date / Time No Known Allergies Allergy Verified 01/25/19 23:31 Home Medications: Ambulatory Orders Phenytoin Na Extended [Dilantin -] 300 mg PO DAILY #90 capsule 09/18/16 Atorvastatin Ca [Lipitor] 20 mg PO HS 02/14/18 Empagliflozin [Jardiance] 25 mg PO DAILY 02/14/18 Insulin Glargine,Hum.rec.anlog [Pily Solostashely] 60 unit SQ DAILY 02/14/18 Sitagliptin Phosphate [Januvia -] 50 mg PO DAILY@0700 02/14/18 Glycopyrrolate/Formoterol Fum [Bevespi Aerosphere Inhaler] 1 puff IH DAILY 02/15 Linaclotide [Linzess] 145 mcg PO DAILY 02/15/18 Insulin Sliding Scale [Novolog Vial Sliding Scale -] 1 vial SQ ACHS #0 units 07/27 levETIRAcetam [Keppra -] 750 mg PO BID 30 Days #180 tablet 02/16/18 Anemia: No (denies) COPD: No Diabetes: Yes - Suicide/Smoking/Psychosocial Hx Smoking History: Never smoked Have you smoked in the past 12 months: No Number of Cigarettes Smoked Daily: 5 Information on smoking cessation initiated: No 'Breaking Loose' booklet given: 09/16/16 Hx Alcohol Use: No Drug/Substance Use Hx: No Substance Use Type: None Hx Substance Use Treatment: No Review of Systems - Review of Systems Constitutional: No: Chills, Fever, Night Sweats HEENTM: No: Symptoms Reported Respiratory: No: Shortness of Breath, Wheezing Cardiac (ROS): Yes: See HPI, Syncope. No: Chest Pain, Edema, Lightheadedness, Palpitations ABD/GI: No: Constipated, Diarrhea, Nausea, Vomiting, Abdominal cramping : Yes: Frequency. No: Dysuria, Hematuria Musculoskeletal: Yes: See HPI, Muscle Pain, Neck Pain. No: Back Pain, Joint Pain Integumentary: No: Symptoms Reported Neurological: Yes: See HPI, Seizure, Tremors. No: Headache, Numbness, Tingling *Physical Exam - Vital Signs Last Vital Signs Temp Pulse Resp BP Pulse Ox 97.6 F 93 H 18 151/92 93 L 01/25/19 23:31 01/25/19 23:31 01/25/19 23:31 01/25/19 23:31 01/25/19 23:31 - Physical Exam General Appearance: Yes: Nourished, Appropriately Dressed. No: Apparent Distress HEENT: positive: EOMI, AIDEN, Normal ENT Inspection, Pharynx Normal, Other (r eye injection from procedure) Neck: positive: Trachea midline, Supple. negative: Lymphadenopathy (R), Lymphadenopathy (L) Respiratory/Chest: positive: Lungs Clear, Normal Breath Sounds Cardiovascular: positive: Regular Rhythm, Regular Rate, S1, S2. negative: Edema , JVD, Murmur Vascular Pulses: Carotid (R): 2+, Carotid (L): 2+, Dorsalis-Pedis (R): 2+, Doralis-Pedis (L): 2+ Gastrointestinal/Abdominal: positive: Normal Bowel Sounds, Soft. negative: Distended, Rebound, Tenderness, Hernia, Mass Musculoskeletal: negative: CVA Tenderness, Muscle Spasm, Vertebral Tenderness Extremity: positive: Normal Capillary Refill. negative: Pedal Edema, Swelling, Calf Tenderness Integumentary: positive: Normal Color, Dry, Warm Neurologic: positive: tank processor II-XII NML intact, Fully Oriented, Alert, Normal Mood/ Affect, Normal Response, Motor Strength 02/11 ED Treatment Course - LABORATORY CBC & Chemistry Diagram: 01/26/19 00:00 01/26/19 00:00 - ADDITIONAL ORDERS Additional order review: Laboratory Results 01/26/19 00:00 POC Glucometer 464 01/26/19 00:00 POC Glucometer 464 Medical Decision Making - Medical Decision Making 01/26/19 01:51 Pt is a 74yo M with PMH of IDDM, HTN, HLD, BPH, Constipation BIBA after a syncopal v. seizure like episode around 1 hour ago. Per family, pt was stating that his L arm was shaking and then he passed out for about 20 minutes. Fingerstick was in the 500s at home. Per , pt rolled out of bed and fell last night and may have hit his head on the nightstand. He went to urgent care earlier today and given a muscle relaxer. He was fine all day until the shaking episode. He had a similar episode in the past when his sugars are high. Pt seemed to be a bit confused after the episode. Endorses neck/shoulder pain with movement and urinary frequency. Denies chest pain, sob, abdominal pain, n/v/d, headache, back pain, changes in vision, fevers, chills, recent illnesses, sick contacts. Per family, pt is not the most compliant with the insulin, but he did take his insulin today. Vitals: wnl PE: normal. R eye injection from ophthalmalogic operation. Ddx includes but not limited to dka, hhs, hyperglycemia, seizure v. syncope, metabolic/electrolyte disturbance, arrhythmia, cva/tia, mass, malignancy -labs, acetone, lactic -ct head and cspine, ekg -fluids, tylenol BGM 450s. pending chem. EKG: nsr with 1st degree block. t wafe flat in V5, V6, I, aVR, aVL. No jacoby or depressions. QTc 425, NV 210. pt received 1L fluids by EMS. another bolus added. lact ic 6.3. 2 more boluses ordered. will repeat gluc 496. all other electrolytes wnl. pH wnl. No anion gap. will give 10u sq insulin and recheck fingerstick. Head ct- no acute pathology cspine ct- no fracture. arthritic changes. pt needs admission for syncope v. seizure and hyperglyemia and lactic acidosis. will give insulin, recheck fingerstick and recheck lactic acid. 4L fluids already. 01/26/19 02:14 *DC/Admit/Observation/Transfer Diagnosis at time of Disposition: Hyperglycemia, Elevated lactic acid level, Episode of shaking Syncope Qualifiers: Syncope type: unspecified Qualified Code(s): R55 - Syncope and collapse - Discharge Dispostion Condition at time of disposition: Good Decision to Admit order: Yes - Referrals Referrals: Aries Rendon [Primary Care Provider] - - Patient Instructions - Post Discharge Activity
[2019-01-26] MEDS ORDERED: ACETAMINOPHEN 500 MG TABLET (FP) PO ONE (00:28)
[2019-01-26 00:38] LABS: VENOUS PH 7.34 (7.31-7.41); VENOUS PO2 58.6 mmHg (30-40)
[2019-01-26 00:40] LABS: EOS % 2.7 % (0-4.5); HEMATOCRIT 44.4 % (35.4-49); HEMOGLOBIN 14.7 GM/dL (11.7-16.9); MCH 29.2 pg (25.7-33.7); MCHC 33.1 g/dl (32.0-35.9); MEAN CELL VOLUME 88.2 fl (80-96); MEAN PLT VOLUME 10.3 fl (7.5-11.1); MONO % 8.9 % (3.8-10.2); NEUT % 55.4 % (42.8-82.8); PLATELET COUNT 147 K/MM3 (134-434); RBC 5.04 M/mm3 (4.00-5.60); WHITE BLOOD COUNT 4.1 K/mm3 (4.0-10.0)
[2019-01-26 01:00] LABS: URINE APPEARANCE CLEAR; URINE BILIRUBIN NEGATIVE (NEGATIVE); URINE COLOR YELLOW; URINE GLUCOSE (UA) 3+ (NEGATIVE); URINE KETONE NEGATIVE (NEGATIVE); URINE LEUK ESTERASE NEGATIVE (NEGATIVE); URINE NITRITE NEGATIVE (NEGATIVE); URINE PROTEIN NEGATIVE (NEGATIVE); URINE UROBILINOGEN 0.2 mg/dL (0.2-1.0)
[2019-01-26] MEDS ORDERED: CALCIUM GLUCONATE 10% - 1,000 MG/10 ML VIAL IVPUSH ONE (01:24)
[2019-01-26] MEDS ORDERED: INSULIN REGULAR HUMAN 100 UNITS/ML *VIAL IVPUSH ONE ×2 (01:24→03:37)
[2019-01-26] MEDS ORDERED: SODIUM CHLORIDE 0.9% 1000 ML INFUS.BAG IV ONE (01:26)
--- NOTE | 2019-01-26 01:32 | PDOC ---
Documentation entered by Rosana Lauren SCRIBE, acting as scribe for Larisa Mehta DO. Larisa Mehta DO: This documentation has been prepared by the Leonidas mercado Daisy, SCRIBE, under my direction and personally reviewed by me in its entirety. I confirm that the documentation accurately reflects all work, treatment, procedures, and medical decision making performed by me. Attending Attestation - Resident Resident Name: RachelCamila - ED Attending Attestation I have performed the following: I have examined & evaluated the patient, The case was reviewed & discussed with the resident, I agree w/resident's findings & plan - HPI HPI: 01/26/19 00:11 The patient is a 74 YOM with a PMH of IDDM, HTN, and HLD who presents to the ER with left arm shaking 1 hour prior to arrival followed by loss of consciousness for approximately 20 minutes. No tongue biting, or bladder/ bowel incontinence. Patient's family reports the blood glucose was 500 at home. He states he has similar episodes when his blood glucose is elevated. As per family, patient is not compliant with his insulin. Family reports the patient rolled off his bed last night landing on his right side, and he reports he may have hit his head on the night stand. He is complaining of right anterior neck pain. Patient was evaluated by an urgent care today and was given a muscle relaxant, which he has not yet picked up from the pharmacy. Of note, patient had his eyes lasered for diabetic retinopathy. Patient has no other complaints at this time. Patient is a poor historian. Allergies: NKDA PCP: Dr. Rendon - Physicial Exam PE: 01/26/19 00:44 ADULT PHYSICAL EXAM Constitutional: Awake, alert, poor historian. No acute distress. Cardiovascular: Regular rate. Regular rhythm. S1, S2 regular. Distal pulses are 2+ and symmetric. Pulmonary/Chest: No evidence of respiratory distress. Clear to auscultation bilaterally No wheezing, rales or rhonchi. Abdominal: Soft and non-distended. There is no tenderness. No rebound, guarding or rigidity. Musculoskeletal: No edema. No cyanosis. No clubbing. Full range of motion in all extremities. Nocalf tenderness. Radial/pedal pulses are intact and 2+ bilaterally Skin: Skin is warm and dry. Neurological: Cranial nerves II-XII are grossly intact. Psychiatric: Good eye contact. Normal interaction, affect and behavior. - Medical Decision Making 01/26/19 01:19 a/p: 74yo male with hx of dm with elevated bg and a syncopal episode today with L arm shaking -no tongue biting, no loss of control of bowel or bladder -hx of fall out of bed last night, concern for head injury, also R sided neck pain since the fall -pt denies cp/sob -had rhinorrhea last night, but denies f/c -denies abd pain, n/v/d -concern for syncope - will obtain head ct, cxr, ekg, labs -pt will need obs overnight for syncopal workup 01/26/19 01:31 no acute findings on head ct - per IOC read 01/26/19 01:41 c spine negative 01/26/19 01:52 elevated lactate ivf hydration running elevated glucose- will give 10units sq insulin pt with a syncopal episode ua negative cxr pending will place in obs for further eval and glucose control pt currently awake, alert, oriented in NAD 01/26/19 01:56 microblog sent to [facility] for further eval 01/26/19 02:09 resident discussed the case with [facility] who accepts pt to service Heart Score/ECG Review - ECG Intrepretation Comment:: 01/26/19 01:21 sinus at 93 with 1st degree av block, nl axis, nl interval, q wqaves septally that are age indeterminate, no acute st/t wave findings
[2019-01-26] MEDS ORDERED: ACETAMINOPHEN 325 MG TABLET (FP) ONE (01:50)
[2019-01-26 01:51] LABS: ALBUMIN 3.3 g/dl (3.4-5.0); ALK PHOS 64 U/L (45-117); ANION GAP 9 MMOL/L (8-16); BILIRUBIN,TOTAL 0.3 mg/dL (0.2-1); BLOOD UREA NITROGEN 15 mg/dL (7-18); CALCIUM 8.8 mg/dL (8.5-10.1); CHLORIDE 104 mmol/L (98-107); CO2 23 mmol/L (21-32); CREATININE 1.2 mg/dL (0.55-1.3); GLUCOSE,RANDOM 496 mg/dL (74-106); MAGNESIUM 2.3 mg/dL (1.8-2.4); POTASSIUM 4.2 mmol/L (3.5-5.1); SGOT/AST 14 U/L (15-37); SGPT/ALT 25 U/L (13-61); SODIUM 136 mmol/L (136-145); TOT PROT 6.6 g/dl (6.4-8.2)
[2019-01-26] MEDS ORDERED: INSULIN REGULAR HUMAN 100 UNITS/ML *VIAL SQ ONE (01:52)
[2019-01-26] MEDS ORDERED: LACTATED RINGERS SOLUTION 1000 ML INFUS.BAG IV ONE (01:53)
[2019-01-26] MEDS ORDERED: INSULIN REGULAR HUMAN 100 UNITS/ML *VIAL ONE (03:00)
[2019-01-26 03:37] LABS: ACETONE SERUM NEGATIVE (NEGATIVE)
--- NOTE | 2019-01-26 03:58 | HP ---
CHIEF COMPLAINT: Left arm shaking, LOC PCP: Dr Rendon HISTORY OF PRESENT ILLNESS: Pt is a pleasant 74 y/o gentleman with a significant past medial history of IDDM , HLD, HTN, and BPH who presented to [facility] due to left arm shaking and loss of consciousness. Pt endorses that the night before his seizure-like episode, he fell of of his bed and hit his head; pt denies any loss of consciousness or bleeding. The following day, pt began to experience left arm shaking and reportedly "blacked out" for 20 minutes. Blood glucose at that time was noted to be in the 500s. Pt denies any bowel or bladder loss, or tongue bitting, or pre-aura. Endorses that he endured a similar incident last year in which he was hospitalized in the ICU and treated for DKA and Seizure D/o. Pt was started on Keppra last year hopwever admits he is not complaint with his medication. Also endorses he sometimes forgets to take his insulin. PMH as above Social Hx- Former Smoker 1 pack/week for 30 years. Social Drinker. No illicit drug use SurgHx- B/l Cataract FH- Father Prostate cancer. Mother Goiter ER course was notable for: (1) BGM on admission 496 (2) 6.3 lactic acid (3) HOME MEDICATIONS: Home Medications Medication Instructions Recorded Phenytoin Na Extended [Dilantin -] 300 mg PO DAILY #90 capsule 09/18/16 Atorvastatin Ca [Lipitor] 20 mg PO HS 02/14/18 Empagliflozin [Jardiance] 25 mg PO DAILY 02/14/18 Insulin Glargine,Hum.rec.anlog 60 unit SQ DAILY 02/14/18 [Toujeo Solostar] Sitagliptin Phosphate [Januvia -] 50 mg PO DAILY@0700 02/14/18 Glycopyrrolate/Formoterol Fum 1 puff IH DAILY 02/15/18 [Bevespi Aerosphere Inhaler] Linaclotide [Linzess] 145 mcg PO DAILY 02/15/18 Insulin Sliding Scale [Novolog 1 vial SQ ACHS #0 units 02/16/18 Vial Sliding Scale -] levETIRAcetam [Keppra -] 750 mg PO BID 30 Days #180 tablet 02/16/18 REVIEW OF SYSTEMS CONSTITUTIONAL: Absent: fever, chills, diaphoresis, generalized weakness, malaise, loss of appetite, weight change HEENT: Absent: rhinorrhea, nasal congestion, throat pain, throat swelling, difficulty swallowing, mouth swelling, ear pain, eye pain, visual changes CARDIOVASCULAR: Absent: chest pain, syncope, palpitations, irregular heart rate, lightheadedness , peripheral edema RESPIRATORY: Absent: cough, shortness of breath, dyspnea with exertion, orthopnea, wheezing, stridor, hemoptysis GASTROINTESTINAL: Absent: abdominal pain, abdominal distension, nausea, vomiting, diarrhea, constipation, melena, hematochezia GENITOURINARY: Absent: dysuria, frequency, urgency, hesitancy, hematuria, flank pain, genital pain MUSCULOSKELETAL: Absent: myalgia, arthralgia, joint swelling, back pain, neck pain SKIN: Absent: rash, itching, pallor HEMATOLOGIC/IMMUNOLOGIC: Absent: easy bleeding, easy bruising, lymphadenopathy, frequent infections ENDOCRINE: Absent: unexplained weight gain, unexplained weight loss, heat intolerance, cold intolerance NEUROLOGIC: PRESENT focal weakness , seizure, mental status changes PSYCHIATRIC: Absent: anxiety, depression, suicidal or homicidal ideation, hallucinations. PHYSICAL EXAMINATION Vital Signs - 24 hr 01/25/19 01/26/19 23:31 03:14 Temperature 97.6 F Pulse Rate 93 H Respiratory 18 18 Rate Blood Pressure 151/92 O2 Sat by Pulse 93 L 95 Oximetry (%) GENERAL: AAOx3 HEAD: Normal with no signs of trauma. EYES: EOMI Sclera Clear EARS, NOSE, THROAT: MMM NECK: Aupplw No JVD appreciated LUNGS: CTAB HEART: RRR nl s1s2 ABDOMEN: Obsese, Nontender. Slightly distended MUSCULOSKELETAL: FROM UPPER EXTREMITIES: 2+ pulses, warm, well-perfused. No cyanosis. No clubbing. No peripheral edema. LOWER EXTREMITIES: B/L onychomycosis, DP 2+ NEUROLOGICAL: Cranial nerves II-XII intact. Normal speech. Strength 5/5 throughout. SILT throughout PSYCHIATRIC: Cooperative. Good eye contact. Appropriate mood and affect. SKIN: Warm, dry, normal turgor, no rashes or lesions noted, normal capillary refill. Laboratory Results - last 24 hr 01/26/19 01/26/19 01/26/19 00:00 00:00 00:00 WBC 4.1 RBC 5.04 Hgb 14.7 Hct 44.4 MCV 88.2 MCH 29.2 MCHC 33.1 RDW 13.0 Plt Count 147 MPV 10.3 Absolute Neuts (auto) 2.3 Neutrophils % 55.4 Lymphocytes % 32.0 Monocytes % 8.9 Eosinophils % 2.7 Basophils % 1.0 Nucleated RBC % 0 VBG pH 7.34 POC VBG pCO2 43.0 POC VBG pO2 58.6 H VBG HCO3 22.6 L VBG O2 Sat (Edel) 88.1 H VBG Base Excess -2.6 L Sodium 136 Potassium 4.2 Chloride 104 Carbon Dioxide 23 Anion Gap 9 BUN 15 Creatinine 1.2 Creat Clearance w eGFR 58.86 POC Glucometer Random Glucose 496 H* Lactic Acid Calcium 8.8 Magnesium 2.3 Total Bilirubin 0.3 AST 14 L ALT 25 Alkaline Phosphatase 64 Total Protein 6.6 Albumin 3.3 L Urine Color Urine Appearance Urine pH Ur Specific [place] Urine Protein Urine Glucose (UA) Urine Ketones Urine Blood Urine Nitrite Urine Bilirubin Urine Urobilinogen Ur Leukocyte Esterase Acetone, Qual Negative 01/26/19 01/26/19 01/26/19 00:00 00:00 00:25 WBC RBC Hgb Hct MCV MCH MCHC RDW Plt Count MPV Absolute Neuts (auto) Neutrophils % Lymphocytes % Monocytes % Eosinophils % Basophils % Nucleated RBC % VBG pH POC VBG pCO2 POC VBG pO2 VBG HCO3 VBG O2 Sat ([place]) VBG Base Excess Sodium Potassium Chloride Carbon Dioxide Anion Gap BUN Creatinine Creat Clearance w eGFR POC Glucometer 464 Random Glucose Lactic Acid 6.3 H* Calcium Magnesium Total Bilirubin AST ALT Alkaline Phosphatase Total Protein Albumin Urine Color Yellow Urine Appearance Clear Urine pH 5.0 Ur Specific [place] 1.038 H Urine Protein Negative Urine Glucose (UA) 3+ H Urine Ketones Negative Urine Blood Negative Urine Nitrite Negative Urine Bilirubin Negative Urine Urobilinogen 0.2 Ur Leukocyte Esterase Negative Acetone, Qual 01/26/19 03:07 WBC RBC Hgb Hct MCV MCH MCHC RDW Plt Count MPV Absolute Neuts (auto) Neutrophils % Lymphocytes % Monocytes % Eosinophils % Basophils % Nucleated RBC % VBG pH POC VBG pCO2 POC VBG pO2 VBG HCO3 VBG O2 Sat ([place]) VBG Base Excess Sodium Potassium Chloride Carbon Dioxide Anion Gap BUN Creatinine Creat Clearance w eGFR POC Glucometer 458 Random Glucose Lactic Acid Calcium Magnesium Total Bilirubin AST ALT Alkaline Phosphatase Total Protein Albumin Urine Color Urine Appearance Urine pH Ur Specific [place] Urine Protein Urine Glucose (UA) Urine Ketones Urine Blood Urine Nitrite Urine Bilirubin Urine Urobilinogen Ur Leukocyte Esterase Acetone, Qual ASSESSMENT/PLAN: Pt is a pleasant 74 y/o gentleman with a significant past medial history of IDDM , HLD, HTN, and BPH who presented to [facility] due to left arm shaking and loss of consciousness. #Hyperglycemia 2/2 noncontrolled IDDM -BGM in ED 496 -Administered 10 U Insulin in ED. Given another 8 U. -on multiple oral hypoglycemics. Pt cannot rec al names. Day team to reconcile medications in am. -TSH, A1C, Lipid Profile #Seizure D/O -placed on Keppra last year. noncompliant -Will Load with Keppra and restart home dose of 750 BID -Consider Neurology consult in am. #HTN Day team to reconcile meds #HLD Day team tor reconcile meds #FEN NS@100cc/hr Monitor Electrolytes Diabetic Diet #DVT ppx: HepSQTID Dispo: Tele Pt uses [facility]. Day team please reconcile meds. Visit type - Emergency Visit Emergency Visit: Yes ED Registration Date: 01/26/19 Care time: The patient presented to the Emergency Department on the above date and was hospitalized for further evaluation of their emergent condition. - New Patient This patient is new to me today: Yes Date on this admission: 01/26/19 - Critical Care Critical Care patient: No
[2019-01-26] MEDS ORDERED: levETIRAcetam 500 MG/5 ML INJECTION VIAL IVPB ONE (04:27)
[2019-01-26] MEDS ORDERED: SODIUM CHLORIDE 1,000 ML IV SCH (04:45)
[2019-01-26 05:01] VITALS: BMI 28.5
--- NOTE | 2019-01-26 06:19 | PN ---
Teaching Attending Note Name of Resident: Greg Davis ATTENDING PHYSICIAN STATEMENT I saw and evaluated the patient. I reviewed the resident's note and discussed the case with the resident. I agree with the resident's findings and plan as documented. SUBJECTIVE: Seen and examined; please refer to resident note for further historical information. Briefly, this is a 74 y/o male who presents to the ER after sustaining seizure activity during an episode of hyperglycemia. He has had previous presentations in the past that were similar in nature. Nothing made it better or worse, he hasn't seen anyone else for this, etc. He was admitted here for similar issues in the past last year and this is the same presentation. He admits to not checking his fsg regularly, not taking his AED's , etc. Seizure was witnessed by his ; +LOC but no loss of bowel or bladder function. Doesn't regularly see neuro. No further neuro complaints or seizure activity witnessed here. Will be brought to the medicine service for further treatment and monitoring 10 sys ROS done and negative aside from HPI PMH, PSH, FH, SH reviewed Home Medications Medication Instructions Recorded Phenytoin Na Extended [Dilantin -] 300 mg PO DAILY #90 capsule 09/18/16 Atorvastatin Ca [Lipitor] 20 mg PO HS 02/14/18 Empagliflozin [Jardiance] 25 mg PO DAILY 02/14/18 Insulin Glargine,Hum.rec.anlog 60 unit SQ DAILY 02/14/18 [Toujeo Solostar] Sitagliptin Phosphate [Januvia -] 50 mg PO DAILY@0700 02/14/18 Glycopyrrolate/Formoterol Fum 1 puff IH DAILY 02/15/18 [Bevespi Aerosphere Inhaler] Linaclotide [Linzess] 145 mcg PO DAILY 02/15/18 Insulin Sliding Scale [Novolog 1 vial SQ ACHS #0 units 02/16/18 Vial Sliding Scale -] levETIRAcetam [Keppra -] 750 mg PO BID 30 Days #180 tablet 02/16/18 NEED TO VERIFY AND RECONCILE-PENDING OBJECTIVE: VS, labs, and imaging reviewed NAD, AAO, resting in bed RRR s1/2 no mgr NC AT EOMI PERRLA Lungs CTAB, w/ sym exp NT ND +BS CN2-12 wnl, no fnd Normal mood, appropriate behavior. ASSESSMENT AND PLAN: Patient presents with hyperglycemia and likely seizure likely 2/2 noncomplaince with home medications; he is stable 1) Uncontrolled DM with hyperglycemia -No DKA/HONK. Placing on home long acting with SSI; consider adding mealtime insulin. Check A1c. Titrate basal based on PRN requirements. Call pharmacy to reconcile meds and hold his PO medications. -Consider referral to nutrition -Consider endocrine referral 2) Seizure -Restarting home keppra; 2/2 noncopmpliance. Seizure precautions and neuro checks. -Consider neuro consult 3) Noncompliance -Nutrition Instructor prior to DC
[2019-01-26] MEDS: INSULIN SLIDING SCALE (NOVOLOG) 1 VIAL SQ SCH ×4 (07:08→23:23)
[2019-01-26 08:26] LABS: BASO % 0.8 % (0-2.0); EOS % 1.8 % (0-4.5); HEMATOCRIT 40.2 % (35.4-49); HEMOGLOBIN 13.5 GM/dL (11.7-16.9); LYMPH % 28.6 % (8-40); MCH 28.9 pg (25.7-33.7); MCHC 33.5 g/dl (32.0-35.9); MEAN CELL VOLUME 86.3 fl (80-96); MONO % 8.4 % (3.8-10.2); NEUT % 60.4 % (42.8-82.8); PLATELET COUNT 152 K/MM3 (134-434); RBC 4.66 M/mm3 (4.00-5.60); RDW 12.7 % (11.9-15.9); WHITE BLOOD COUNT 5.6 K/mm3 (4.0-10.0)
[2019-01-26 08:27] LABS: INR 0.94 (0.83-1.09); PROTHROMBIN TIME (PATIENT) 11.1 SEC (9.7-13.0)
[2019-01-26 08:29] LABS: ALK PHOS 61 U/L (45-117); ANION GAP 5 MMOL/L (8-16); BILIRUBIN,TOTAL 0.3 mg/dL (0.2-1); BLOOD UREA NITROGEN 11 mg/dL (7-18); CHLORIDE 113 mmol/L (98-107); CHOLESTEROL 163 mg/dL (50-200); CO2 24 mmol/L (21-32); CREATININE 0.7 mg/dL (0.55-1.3); GLUCOSE,RANDOM 235 mg/dL (74-106); HDL CHOLESTEROL 36 mg/dL (40-60); MAGNESIUM 2.1 mg/dL (1.8-2.4); PHOSPHOROUS 2.9 mg/dL (2.5-4.9); POTASSIUM 3.7 mmol/L (3.5-5.1); SGOT/AST 10 U/L (15-37); SGPT/ALT 22 U/L (13-61); SODIUM 142 mmol/L (136-145); TRIGLYCERIDES 128 mg/dL (0-150)
--- NOTE | 2019-01-26 10:37 | EKG ---
Test Reason : Blood Pressure : / mmHG Vent. Rate : 093 BPM Atrial Rate : 093 BPM P-R Int : 210 ms QRS Dur : 092 ms QT Int : 342 ms P-R-T Axes : 062 -13 076 degrees QTc Int : 425 ms SINUS RHYTHM WITH 1ST DEGREE A-V BLOCK NONSPECIFIC ST AND T WAVE ABNORMALITY ABNORMAL ECG WHEN COMPARED WITH ECG OF 14-FEB-2018 09:32, NO SIGNIFICANT CHANGE WAS FOUND Confirmed by DAMION BOYKIN MD ([id number]) on 01/26/2019 10:37:23 AM Referred By: Confirmed By:DAMION BOYKIN MD
[2019-01-26] MEDS: HEPARIN NA (PORCINE) 5,000 UNITS/ML 1ML VIAL SQ SCH ×2 (14:12→23:23)
[2019-01-26] MEDS ORDERED: levETIRAcetam 500 MG TABLET (FP) PO SCH (16:00)
--- NOTE | 2019-01-26 16:42 | PN ---
Physical Exam: SUBJECTIVE: Patient seen and examined at bedside this morning. No acute events since admission. Patient reports feeling well and has no complaints. Denies fever, chills, headache, dizziness, seizures, nausea, vomiting, chest pain, SOB , abdominal pain, urinary symptoms. OBJECTIVE: Vital Signs Temperature 98 F 01/26/19 14:15 Pulse Rate 73 01/26/19 14:15 Respiratory Rate 18 01/26/19 14:15 Blood Pressure 154/87 01/26/19 14:15 O2 Sat by Pulse Oximetry (%) 99 01/26/19 09:00 GENERAL: The patient is awake, alert, and fully oriented, in no acute distress. HEAD: Normal with no signs of trauma. NECK: Trachea midline, full range of motion, supple. LUNGS: Breath sounds equal, clear to auscultation bilaterally. HEART: Regular rate and rhythm, S1, S2 without murmur, rub or gallop. ABDOMEN: Soft, nontender, nondistended, normoactive bowel sounds. EXTREMITIES: 2+ pulses, warm, well-perfused, no edema. NEUROLOGICAL: AAOx3. Cranial nerves II through XII grossly intact. Normal speech , normal gait. Motor strength 5/5, sensation intact. PSYCH: Normal mood, normal affect. SKIN: Warm, dry, normal turgor, no rashes or lesions noted Laboratory Results - last 24 hr 01/26/19 01/26/19 01/26/19 00:00 00:00 00:00 WBC 4.1 RBC 5.04 Hgb 14.7 Hct 44.4 MCV 88.2 MCH 29.2 MCHC 33.1 RDW 13.0 Plt Count 147 MPV 10.3 Absolute Neuts (auto) 2.3 Neutrophils % 55.4 Lymphocytes % 32.0 Monocytes % 8.9 Eosinophils % 2.7 Basophils % 1.0 Nucleated RBC % 0 PT with INR INR PTT (Actin FS) VBG pH 7.34 POC VBG pCO2 43.0 POC VBG pO2 58.6 H VBG HCO3 22.6 L VBG O2 Sat ([place]) 88.1 H VBG Base Excess -2.6 L Sodium 136 Potassium 4.2 Chloride 104 Carbon Dioxide 23 Anion Gap 9 BUN 15 Creatinine 1.2 Creat Clearance w eGFR 58.86 POC Glucometer Random Glucose 496 H* Hemoglobin A1c % Lactic Acid Calcium 8.8 Phosphorus Magnesium 2.3 Total Bilirubin 0.3 AST 14 L ALT 25 Alkaline Phosphatase 64 Total Protein 6.6 Albumin 3.3 L Triglycerides Cholesterol Total LDL Cholesterol HDL Cholesterol TSH Urine Color Urine Appearance Urine pH Ur Specific [place] Urine Protein Urine Glucose (UA) Urine Ketones Urine Blood Urine Nitrite Urine Bilirubin Urine Urobilinogen Ur Leukocyte Esterase Acetone, Qual Negative 01/26/19 01/26/19 01/26/19 00:00 00:00 00:25 WBC RBC Hgb Hct MCV MCH MCHC RDW Plt Count MPV Absolute Neuts (auto) Neutrophils % Lymphocytes % Monocytes % Eosinophils % Basophils % Nucleated RBC % PT with INR INR PTT (Actin FS) VBG pH POC VBG pCO2 POC VBG pO2 VBG HCO3 VBG O2 Sat ([place]) VBG Base Excess Sodium Potassium Chloride Carbon Dioxide Anion Gap BUN Creatinine Creat Clearance w eGFR POC Glucometer 464 Random Glucose Hemoglobin A1c % Lactic Acid 6.3 H* Calcium Phosphorus Magnesium Total Bilirubin AST ALT Alkaline Phosphatase Total Protein Albumin Triglycerides Cholesterol Total LDL Cholesterol HDL Cholesterol TSH Urine Color Yellow Urine Appearance Clear Urine pH 5.0 Ur Specific [place] 1.038 H Urine Protein Negative Urine Glucose (UA) 3+ H Urine Ketones Negative Urine Blood Negative Urine Nitrite Negative Urine Bilirubin Negative Urine Urobilinogen 0.2 Ur Leukocyte Esterase Negative Acetone, Qual 01/26/19 01/26/19 01/26/19 03:07 03:39 04:43 WBC RBC Hgb Hct MCV MCH MCHC RDW Plt Count MPV Absolute Neuts (auto) Neutrophils % Lymphocytes % Monocytes % Eosinophils % Basophils % Nucleated RBC % PT with INR INR PTT (Actin FS) VBG pH POC VBG pCO2 POC VBG pO2 VBG HCO3 VBG O2 Sat ([place]) VBG Base Excess Sodium Potassium Chloride Carbon Dioxide Anion Gap BUN Creatinine Creat Clearance w eGFR POC Glucometer 458 413 Random Glucose Hemoglobin A1c % Lactic Acid 2.7 H* Calcium Phosphorus Magnesium Total Bilirubin AST ALT Alkaline Phosphatase Total Protein Albumin Triglycerides Cholesterol Total LDL Cholesterol HDL Cholesterol TSH Urine Color Urine Appearance Urine pH Ur Specific [place] Urine Protein Urine Glucose (UA) Urine Ketones Urine Blood Urine Nitrite Urine Bilirubin Urine Urobilinogen Ur Leukocyte Esterase Acetone, Qual 01/26/19 01/26/19 01/26/19 06:30 07:00 07:00 WBC 5.6 RBC 4.66 Hgb 13.5 Hct 40.2 MCV 86.3 MCH 28.9 MCHC 33.5 RDW 12.7 Plt Count 152 MPV 10.0 Absolute Neuts (auto) 3.4 Neutrophils % 60.4 Lymphocytes % 28.6 Monocytes % 8.4 Eosinophils % 1.8 Basophils % 0.8 Nucleated RBC % 0 PT with INR 11.10 INR 0.94 PTT (Actin FS) 30.0 VBG pH POC VBG pCO2 POC VBG pO2 VBG HCO3 VBG O2 Sat ([place]) VBG Base Excess Sodium Potassium Chloride Carbon Dioxide Anion Gap BUN Creatinine Creat Clearance w eGFR POC Glucometer 260 Random Glucose Hemoglobin A1c % Lactic Acid Calcium Phosphorus Magnesium Total Bilirubin AST ALT Alkaline Phosphatase Total Protein Albumin Triglycerides Cholesterol Total LDL Cholesterol HDL Cholesterol TSH Urine Color Urine Appearance Urine pH Ur Specific [place] Urine Protein Urine Glucose (UA) Urine Ketones Urine Blood Urine Nitrite Urine Bilirubin Urine Urobilinogen Ur Leukocyte Esterase Acetone, Qual 01/26/19 01/26/19 01/26/19 07:00 07:00 08:25 WBC RBC Hgb Hct MCV MCH MCHC RDW Plt Count MPV Absolute Neuts (auto) Neutrophils % Lymphocytes % Monocytes % Eosinophils % Basophils % Nucleated RBC % PT with INR INR PTT (Actin FS) VBG pH POC VBG pCO2 POC VBG pO2 VBG HCO3 VBG O2 Sat ([place]) VBG Base Excess Sodium 142 Potassium 3.7 Chloride 113 H Carbon Dioxide 24 Anion Gap 5 L BUN 11 Creatinine 0.7 Creat Clearance w eGFR 109.64 POC Glucometer Random Glucose 235 H Hemoglobin A1c % 10.6 H Lactic Acid 1.5 Calcium 8.0 L Phosphorus 2.9 Magnesium 2.1 Total Bilirubin 0.3 AST 10 L ALT 22 Alkaline Phosphatase 61 Total Protein 6.0 L Albumin 3.0 L Triglycerides 128 Cholesterol 163 Total LDL Cholesterol 112 H HDL Cholesterol 36 L TSH 0.80 Urine Color Urine Appearance Urine pH Ur Specific [place] Urine Protein Urine Glucose (UA) Urine Ketones Urine Blood Urine Nitrite Urine Bilirubin Urine Urobilinogen Ur Leukocyte Esterase Acetone, Qual 01/26/19 11:51 WBC RBC Hgb Hct MCV MCH MCHC RDW Plt Count MPV Absolute Neuts (auto) Neutrophils % Lymphocytes % Monocytes % Eosinophils % Basophils % Nucleated RBC % PT with INR INR PTT (Actin FS) VBG pH POC VBG pCO2 POC VBG pO2 VBG HCO3 VBG O2 Sat ([place]) VBG Base Excess Sodium Potassium Chloride Carbon Dioxide Anion Gap BUN Creatinine Creat Clearance w eGFR POC Glucometer 106 Random Glucose Hemoglobin A1c % Lactic Acid Calcium Phosphorus Magnesium Total Bilirubin AST ALT Alkaline Phosphatase Total Protein Albumin Triglycerides Cholesterol Total LDL Cholesterol HDL Cholesterol TSH Urine Color Urine Appearance Urine pH Ur Specific [place] Urine Protein Urine Glucose (UA) Urine Ketones Urine Blood Urine Nitrite Urine Bilirubin Urine Urobilinogen Ur Leukocyte Esterase Acetone, Qual Active Medications Generic Name Dose Route Start Last Admin Trade Name Mortezaq PRN Reason Stop Dose Admin Heparin Sodium (Porcine) 5,000 unit 01/26/19 14:00 01/26/19 14:12 Heparin - SQ 5,000 unit TID MILTON Administration Sodium Chloride 1,000 mls @ 75 mls/hr 01/26/19 04:45 01/26/19 05:33 Normal Saline - IV 75 mls/hr ASDIR MILTON Administration Insulin Aspart 1 vial 01/26/19 07:00 01/26/19 12:03 Novolog Vial Sliding Scale - SQ Not Given ACHS [facility] Protocol Levetiracetam 500 mg/ 750 mg 01/26/19 16:00 Levetiracetam 250 mg PO BID [facility] ASSESSMENT/PLAN: Patient is a 74 year old male with past medical history of HTN, DM, HLD, and BPH presented to the ED due to left arm shaking followed by loss of consciousness. #Seizure disorder -Loaded with Keppra at the ED, will continue home dose Keppra 750mg BID -Sees Dr. Verdugo as outpatient -Lactic acidosis resolved, initially 6.3 --> 1.5 -Will discontinue fluids. #Hyperglycemia 2/2 uncontrolled DM -A1c 10.6% -Will continue home Glargine 60units daily -Will have to confirm with family if patient is also taking Tresiba 60 units, but no answer today -Insulin sliding scale -BGM [facility] #HTN -Losartan 50mg daily #HLD -Lipitor 20mg daily #FEN -Not on any standing fluids -Electrolytes wnl, routine bmp monitoring -Diabetic diet #Prophylaxis -Heparin 5000unit sq tid #Disposition -full code -dc tele -likely for discharge tomorrow Visit type - Emergency Visit Emergency Visit: Yes ED Registration Date: 01/26/19 Care time: The patient presented to the Emergency Department on the above date and was hospitalized for further evaluation of their emergent condition. - New Patient This patient is new to me today: Yes Date on this admission: 01/26/19 - Critical Care Critical Care patient: No
[2019-01-26] MEDS ORDERED: levETIRAcetam 500 MG TABLET (FP) PO ONE ×2 (17:00→21:34)
[2019-01-26] MEDS ORDERED: levETIRAcetam 250 MG TABLET (FP) PO ONE ×2 (17:00→21:34)
[2019-01-26] MEDS: LOSARTAN POTASSIUM 50 MG TABLET (FP) PO SCH (17:19)
--- NOTE | 2019-01-26 17:29 | PN ---
Teaching Attending Note Name of Resident: Dejah Gamboa ATTENDING PHYSICIAN STATEMENT I saw and evaluated the patient. I reviewed the resident's note and discussed the case with the resident. I agree with the resident's findings and plan as documented. SUBJECTIVE: Patient has no complaints. OBJECTIVE: Vital Signs Period Temp Pulse Resp BP Sys/Yung Pulse Ox Last 24 Hr 97.5 F-98 F 73-93 18-20 145-163/87-96 93-99 HEART: S1S2, RRR LUNGS: Clear ABDOMEN: Soft, non-tender, normal BS EXTREMITIES: No edema Laboratory Results - last 24 hr 01/26/19 01/26/19 01/26/19 00:00 00:00 00:00 WBC 4.1 RBC 5.04 Hgb 14.7 Hct 44.4 MCV 88.2 MCH 29.2 MCHC 33.1 RDW 13.0 Plt Count 147 MPV 10.3 Absolute Neuts (auto) 2.3 Neutrophils % 55.4 Lymphocytes % 32.0 Monocytes % 8.9 Eosinophils % 2.7 Basophils % 1.0 Nucleated RBC % 0 PT with INR INR PTT (Actin FS) VBG pH 7.34 POC VBG pCO2 43.0 POC VBG pO2 58.6 H VBG HCO3 22.6 L VBG O2 Sat (Ed[place]) 88.1 H VBG Base Excess -2.6 L Sodium 136 Potassium 4.2 Chloride 104 Carbon Dioxide 23 Anion Gap 9 BUN 15 Creatinine 1.2 Creat Clearance w eGFR 58.86 POC Glucometer Random Glucose 496 H* Hemoglobin A1c % Lactic Acid Calcium 8.8 Phosphorus Magnesium 2.3 Total Bilirubin 0.3 AST 14 L ALT 25 Alkaline Phosphatase 64 Total Protein 6.6 Albumin 3.3 L Triglycerides Cholesterol Total LDL Cholesterol HDL Cholesterol TSH Urine Color Urine Appearance Urine pH Ur Specific [place] Urine Protein Urine Glucose (UA) Urine Ketones Urine Blood Urine Nitrite Urine Bilirubin Urine Urobilinogen Ur Leukocyte Esterase Acetone, Qual Negative 01/26/19 01/26/19 01/26/19 00:00 00:00 00:25 WBC RBC Hgb Hct MCV MCH MCHC RDW Plt Count MPV Absolute Neuts (auto) Neutrophils % Lymphocytes % Monocytes % Eosinophils % Basophils % Nucleated RBC % PT with INR INR PTT (Actin FS) VBG pH POC VBG pCO2 POC VBG pO2 VBG HCO3 VBG O2 Sat ([place]) VBG Base Excess Sodium Potassium Chloride Carbon Dioxide Anion Gap BUN Creatinine Creat Clearance w eGFR POC Glucometer 464 Random Glucose Hemoglobin A1c % Lactic Acid 6.3 H* Calcium Phosphorus Magnesium Total Bilirubin AST ALT Alkaline Phosphatase Total Protein Albumin Triglycerides Cholesterol Total LDL Cholesterol HDL Cholesterol TSH Urine Color Yellow Urine Appearance Clear Urine pH 5.0 Ur Specific [place] 1.038 H Urine Protein Negative Urine Glucose (UA) 3+ H Urine Ketones Negative Urine Blood Negative Urine Nitrite Negative Urine Bilirubin Negative Urine Urobilinogen 0.2 Ur Leukocyte Esterase Negative Acetone, Qual 01/26/19 01/26/19 01/26/19 03:07 03:39 04:43 WBC RBC Hgb Hct MCV MCH MCHC RDW Plt Count MPV Absolute Neuts (auto) Neutrophils % Lymphocytes % Monocytes % Eosinophils % Basophils % Nucleated RBC % PT with INR INR PTT (Actin FS) VBG pH POC VBG pCO2 POC VBG pO2 VBG HCO3 VBG O2 Sat ([place]) VBG Base Excess Sodium Potassium Chloride Carbon Dioxide Anion Gap BUN Creatinine Creat Clearance w eGFR POC Glucometer 458 413 Random Glucose Hemoglobin A1c % Lactic Acid 2.7 H* Calcium Phosphorus Magnesium Total Bilirubin AST ALT Alkaline Phosphatase Total Protein Albumin Triglycerides Cholesterol Total LDL Cholesterol HDL Cholesterol TSH Urine Color Urine Appearance Urine pH Ur Specific [place] Urine Protein Urine Glucose (UA) Urine Ketones Urine Blood Urine Nitrite Urine Bilirubin Urine Urobilinogen Ur Leukocyte Esterase Acetone, Qual 01/26/19 01/26/19 01/26/19 06:30 07:00 07:00 WBC 5.6 RBC 4.66 Hgb 13.5 Hct 40.2 MCV 86.3 MCH 28.9 MCHC 33.5 RDW 12.7 Plt Count 152 MPV 10.0 Absolute Neuts (auto) 3.4 Neutrophils % 60.4 Lymphocytes % 28.6 Monocytes % 8.4 Eosinophils % 1.8 Basophils % 0.8 Nucleated RBC % 0 PT with INR 11.10 INR 0.94 PTT (Actin FS) 30.0 VBG pH POC VBG pCO2 POC VBG pO2 VBG HCO3 VBG O2 Sat ([place]) VBG Base Excess Sodium Potassium Chloride Carbon Dioxide Anion Gap BUN Creatinine Creat Clearance w eGFR POC Glucometer 260 Random Glucose Hemoglobin A1c % Lactic Acid Calcium Phosphorus Magnesium Total Bilirubin AST ALT Alkaline Phosphatase Total Protein Albumin Triglycerides Cholesterol Total LDL Cholesterol HDL Cholesterol TSH Urine Color Urine Appearance Urine pH Ur Specific [place] Urine Protein Urine Glucose (UA) Urine Ketones Urine Blood Urine Nitrite Urine Bilirubin Urine Urobilinogen Ur Leukocyte Esterase Acetone, Qual 01/26/19 01/26/19 01/26/19 07:00 07:00 08:25 WBC RBC Hgb Hct MCV MCH MCHC RDW Plt Count MPV Absolute Neuts (auto) Neutrophils % Lymphocytes % Monocytes % Eosinophils % Basophils % Nucleated RBC % PT with INR INR PTT (Actin FS) VBG pH POC VBG pCO2 POC VBG pO2 VBG HCO3 VBG O2 Sat ([place]) VBG Base Excess Sodium 142 Potassium 3.7 Chloride 113 H Carbon Dioxide 24 Anion Gap 5 L BUN 11 Creatinine 0.7 Creat Clearance w eGFR 109.64 POC Glucometer Random Glucose 235 H Hemoglobin A1c % 10.6 H Lactic Acid 1.5 Calcium 8.0 L Phosphorus 2.9 Magnesium 2.1 Total Bilirubin 0.3 AST 10 L ALT 22 Alkaline Phosphatase 61 Total Protein 6.0 L Albumin 3.0 L Triglycerides 128 Cholesterol 163 Total LDL Cholesterol 112 H HDL Cholesterol 36 L TSH 0.80 Urine Color Urine Appearance Urine pH Ur Specific [place] Urine Protein Urine Glucose (UA) Urine Ketones Urine Blood Urine Nitrite Urine Bilirubin Urine Urobilinogen Ur Leukocyte Esterase Acetone, Qual 01/26/19 01/26/19 11:51 16:40 WBC RBC Hgb Hct MCV MCH MCHC RDW Plt Count MPV Absolute Neuts (auto) Neutrophils % Lymphocytes % Monocytes % Eosinophils % Basophils % Nucleated RBC % PT with INR INR PTT (Actin FS) VBG pH POC VBG pCO2 POC VBG pO2 VBG HCO3 VBG O2 Sat ([place]) VBG Base Excess Sodium Potassium Chloride Carbon Dioxide Anion Gap BUN Creatinine Creat Clearance w eGFR POC Glucometer 106 219 Random Glucose Hemoglobin A1c % Lactic Acid Calcium Phosphorus Magnesium Total Bilirubin AST ALT Alkaline Phosphatase Total Protein Albumin Triglycerides Cholesterol Total LDL Cholesterol HDL Cholesterol TSH Urine Color Urine Appearance Urine pH Ur Specific [place] Urine Protein Urine Glucose (UA) Urine Ketones Urine Blood Urine Nitrite Urine Bilirubin Urine Urobilinogen Ur Leukocyte Esterase Acetone, Qual Current Medications Generic Name Dose Route Start Last Admin Trade Name Freq PRN Reason Stop Dose Admin Aspirin 81 mg 01/27/19 10:00 Asa - PO DAILY [place] Atorvastatin Calcium 20 mg 01/26/19 22:00 Lipitor - PO HS [place] Heparin Sodium (Porcine) 5,000 unit 01/26/19 14:00 01/26/19 14:12 Heparin - SQ 5,000 unit TID [place] Administration Insulin Aspart 1 vial 01/26/19 07:00 01/26/19 17:08 Novolog Vial Sliding Scale - SQ 4 units ACHS [place] Administration Protocol Insulin Detemir 60 units 01/26/19 22:00 Levemir Vial SQ HS [place] Levetiracetam 500 mg/ 750 mg 01/26/19 16:00 01/26/19 17:08 Levetiracetam 250 mg PO 750 mg BID [place] Administration Losartan Potassium 50 mg 01/26/19 17:15 Cozaar - PO DAILY [facility] Non-Formulary Medication 145 mcg 01/27/19 10:00 Linaclotide [Linzess] PO DAILY [facility] Pantoprazole Sodium 40 mg 01/27/19 10:00 Protonix - PO DAILY [facility] Tamsulosin HCl 0.4 mg 01/27/19 08:30 Flomax - PO DAILY@0830 [facility] ASSESSMENT AND PLAN: This is a 74 year old man with a history of type 2 DM, HTN, hyperlipidemia, BPH who presented to the ED after he had shaking of his left arm followed by loss of consciousness. 1. Seizure disorder - Breakthrough seizure likely secondary to non-compliance - Keppra loading dose given in ED - Usual dose of Keppra resumed 2. Lactic acidemia - Secondary to seizure - Resolved 3. Type 2 DM, uncontrolled - HbA1c 10.6 - Continue Levemir, Novolog sliding scale 4. HTN - Continue Cozaar 5. Hyperlipidemia - Continue Lipitor 6. BPH - Continue Flomax
[2019-01-26] MEDS ORDERED: INSULIN (LEVEMIR) 100 UNITS/ML UNITS SQ SCH (22:00)
[2019-01-26] MEDS ORDERED: ATORVASTATIN CA 20 MG TABLET (FP) PO SCH (22:00)
[2019-01-27] MEDS: HEPARIN NA (PORCINE) 5,000 UNITS/ML 1ML VIAL SQ SCH (07:01)
[2019-01-27] MEDS: INSULIN SLIDING SCALE (NOVOLOG) 1 VIAL SQ SCH ×2 (07:01→12:52)
[2019-01-27 07:02] LABS: ANION GAP 5 MMOL/L (8-16); BLOOD UREA NITROGEN 8 mg/dL (7-18); CALCIUM 8.5 mg/dL (8.5-10.1); CHLORIDE 112 mmol/L (98-107); CO2 25 mmol/L (21-32); CREATININE 0.6 mg/dL (0.55-1.3); GLUCOSE,RANDOM 71 mg/dL (74-106); MAGNESIUM 2.2 mg/dL (1.8-2.4); POTASSIUM 3.5 mmol/L (3.5-5.1); SODIUM 142 mmol/L (136-145)
[2019-01-27] MEDS ORDERED: TAMSULOSIN HCL 0.4 MG CAP PO SCH (08:30)
[2019-01-27 08:36] VITALS: BP 138/79; PULSE 78; TEMP 98.2
[2019-01-27] MEDS ORDERED: levETIRAcetam 500 MG TABLET (FP) PO ONE (09:22)
[2019-01-27] MEDS ORDERED: levETIRAcetam 250 MG TABLET (FP) PO ONE (09:22)
[2019-01-27] MEDS ORDERED: POTASSIUM CHLORIDE TABS 20 MEQ TABLET.ER (FP) PO ONE (09:45)
[2019-01-27] MEDS: LOSARTAN POTASSIUM 50 MG TABLET (FP) PO SCH (09:58)
[2019-01-27] MEDS ORDERED: POLYETHYLENE GLYCOL 3350 119 GM BTL PO SCH (10:00)
[2019-01-27] MEDS ORDERED: LOSARTAN POTASSIUM 50 MG TABLET (FP) PO SCH (10:00)
[2019-01-27] MEDS ORDERED: ASPIRIN 81 MG CHEWABLE TABLETS PO SCH (10:00)
[2019-01-27] MEDS ORDERED: PATIENT'S OWN MEDICATION (NON-FORMULARY) (Linaclotide [Linzess] 145 MCG) PO SCH (10:00)
[2019-01-27] MEDS ORDERED: PANTOPRAZOLE 40 MG TABLET (FP) PO SCH (10:00)
--- NOTE | 2019-01-27 12:24 | PN ---
Teaching Attending Note Name of Resident: Dejah Gamboa ATTENDING PHYSICIAN STATEMENT I saw and evaluated the patient. I reviewed the resident's note and discussed the case with the resident. I agree with the resident's findings and plan as documented. SUBJECTIVE: no fever or chills. No HILLIARD , no change in vision . had HILLIARD earlier but improved after breakfast. OBJECTIVE: NAD Cv : RRR Lungs: CTAB EXT: no edema neuro : EOMI, round equal pupils, reactive to light, no facial droop. strength 5 /5 in upper and lower ext proximally and distally, sensation to light touch nl. reflexes 2+ knee jerk and biceps b/l ASSESSMENT AND PLAN: 74 year old man with a history of DM, HTN, hyperlipidemia, and BPH who presented after a seizure like activity. 1- H/o seizure disorder, with a break through seizure. wa felt to be due to non compliance. - cont home dose keppra. no events here - f/u with neuro - he was instructed not to drive until cleard by neuro 2- Dm with severe hyperglycemia, received regular insulinin Er and 60 of levemir last night so dropped in am . - at home, will give 50 of leemir and TID novolog ( takes 10 novolog TID per pharmacy, BId per him and 60 of levemir in am per him and pharmacy ) 3- HTN: started on cozaar here. will give BMP script in 1 week dispo : DC home
--- NOTE | 2019-01-27 14:08 | DS ---
Physical Exam: SUBJECTIVE: Patient seen and examined at bedside this morning. No acute events overnight. Patient feeling well and offers no complaints. OBJECTIVE: Vital Signs Temperature 98.2 F 01/27/19 08:34 Pulse Rate 78 01/27/19 08:34 Respiratory Rate 20 01/27/19 08:34 Blood Pressure 138/79 01/27/19 08:34 O2 Sat by Pulse Oximetry (%) 99 01/27/19 08:34 PHYSICAL EXAM GENERAL: The patient is awake, alert, and fully oriented, in no acute distress. HEAD: Normal with no signs of trauma. NECK: Trachea midline, full range of motion, supple. LUNGS: Breath sounds equal, clear to auscultation bilaterally. HEART: Regular rate and rhythm, S1, S2 without murmur, rub or gallop. ABDOMEN: Soft, nontender, nondistended, normoactive bowel sounds. EXTREMITIES: 2+ pulses, warm, well-perfused, no edema. NEUROLOGICAL: AAOx3. Cranial nerves II through XII grossly intact. Normal speech , normal gait. Motor strength 5/5, sensation intact. PSYCH: Normal mood, normal affect. SKIN: Warm, dry, normal turgor, no rashes or lesions noted LABS Laboratory Results - last 24 hr 01/26/19 01/26/19 01/27/19 16:40 23:20 05:30 Sodium 142 Potassium 3.5 Chloride 112 H Carbon Dioxide 25 Anion Gap 5 L BUN 8 Creatinine 0.6 Creat Clearance w eGFR 130.99 POC Glucometer 219 247 Random Glucose 71 L Calcium 8.5 Phosphorus 3.0 Magnesium 2.2 01/27/19 01/27/19 06:54 12:18 Sodium Potassium Chloride Carbon Dioxide Anion Gap BUN Creatinine Creat Clearance w eGFR POC Glucometer 66 212 Random Glucose Calcium Phosphorus Magnesium HOSPITAL COURSE: Date of Admission:01/26/19 Date of Discharge: 01/27/19 Patient is a 74 year old male with past medical history of HTN, DM, HLD, and BPH presented to the ED due to left arm shaking followed by loss of consciousness. Upon admission, lactic acid was noted to be elevated. IV fluids started. Head CT was done which revealed no acute intracranial pathologies. Patient was loaded with Keppra at the ED and was continued on his home dose of Keppra 750mg BID. No acute events during the entire hospital stay and lactic acidosis improved. Patient was also noted to have elevated blood pressure and was started on Losartan 25mg daily. Patient also noted to have episodes of hypoglycemia in the morning. Tresiba dose decreased from 60 to 50 units. Patient was discharged with instructions to followup with PCP and neurologist. Minutes to complete discharge: 38 Discharge Summary Reason For Visit: HYPERGLYCEMIA, SEIZURE,SYNCOPE, INCREASED LACTIC Current Active Problems Diabetes mellitus (Chronic) Hyperglycemia (Chronic) Seizure (Chronic) Condition: Improved - Instructions Diet, Activity, Other Instructions: Your visit You were admitted to the hospital because you had left arm shaking and became unconscious. You likely had a seizure episode. It is important that you take your medication (Keppra) regularly as instructed by your neurologist and to follow up with him regularly. Blood sugar was also noted to be elevated when you were initially seen at the emergency department. Please take your Insulin medications regularly. Keep a record of your blood sugar daily and bring to your primary care doctor on follow -up. Eat a low fat, low carbohydrate diet. We will give you a script for a repeat blood work (BMP) in 1 week. Please bring to your primary care physician's office on follow-up. Medications Please take note of the following changes to your medications: 1. Losartan 25mg daily is a new medication for your blood pressure 2- Take levemir 50 units instead of 60 in am, and take novolog 10 units three times a day not only twice Continue your other home medications. Follow-up -Please follow up with your primary care physician (Dr. Rendon) within 1 week. -Please follow up with your neurologist (Dr. Verdugo) within 1 week. Disposition Call 911 or go to the ED if with worsening fever, chills, headache, dizziness, nausea, vomiting, chest pain, shortness of breath, belly pain, bloody stools, weakness, numbness, or any new concerns. Referrals: Aries Rendon [Primary Care Provider] - John Paul Verdugo MD [Staff Physician] - Disposition: HOME - Home Medications Comprehensive Discharge Medication List: Ambulatory Orders Atorvastatin Ca [Lipitor] 20 mg PO HS 02/14/18 Linaclotide [Linzess] 145 mcg PO DAILY 02/15/18 levETIRAcetam [Keppra -] 750 mg PO BID 30 Days #180 tablet 02/16/18 Aspirin [ASA -] 81 mg PO DAILY 01/26/19 Esomeprazole Magnesium [Nexium 24Hr] 40 mg PO DAILY 01/26/19 Insulin Lispro [Humalog] 10 units SQ TID 01/26/19 Methocarbamol 500 mg PO BID 01/26/19 Tamsulosin HCl 0.4 mg PO DAILY 01/26/19 Insulin Degludec [Tresiba] 50 unit SQ DAILY #1 vial 01/27/19 Losartan Potassium [Cozaar -] 25 mg PO DAILY #30 tablet 01/27/19 Miscellaneous Medical Supply [Outpatient Order] 1 each ASDIR #1 misc This patient is new to me today: No Emergency Visit: Yes ED Registration Date: 01/26/19 Care time: The patient presented to the Emergency Department on the above date and was hospitalized for further evaluation of their emergent condition. Critical Care patient: No - Discharge Referral Referred to [facility] No
== END 2019-01-27 15:55 | disposition home or self-care (01) | DRG 101 ==
LOC: JER 23:16 → JERBED 01-26 01:23 → OBSVTOIN 01-26 03:53 → J4W 01-26 04:28
PROVIDERS: ADMIT Internal Medicine; ATTEND Internal Medicine
DX: G40.909 Epilepsy, unspecified, not intractable, without status epilepticus (principal); E87.2 Acidosis; E11.65 Type 2 diabetes mellitus with hyperglycemia; I10 Essential (primary) hypertension; E78.5 Hyperlipidemia, unspecified; Z91.14 Patient's other noncompliance with medication regimen; N40.0 Benign prostatic hyperplasia without lower urinary tract symptoms; Z79.4 Long term (current) use of insulin
CPT/HCPCS: 36415; 70450-TC; 71045-TC-FY; 72125-TC; 80048; 80053; 80061; 81003; 82009; 82803; 82962; 83036; 83605; 83721; 83735; 84100; 84443; 85025; 85610; 85730; 93005; 93010; 99285-25; G0378; J1644; J7030

== ENCOUNTER 2019-07-20 04:12 | Emergency (ER) | payer BC, OTHER ==
[2019-07-20 04:33] VITALS: BMI 29.5
--- NOTE | 2019-07-20 04:56 | PDOC ---
History of Present Illness - General Chief Complaint: Seizure Stated Complaint: SEIZURE History Source: Patient Exam Limitations: No Limitations - History of Present Illness Initial Comments: 07/20/19 06:00 Romulo Flores is a 74yM w PMHx IDDM, HTN, HLD, seizures presenting w seizure. Pt is a poor historian, doesn't remember seizure episode. Seizure episode happened this morning. Pt endorses medication noncompliance, trying to self- wean off meds. Endorses increased urinary frequency every hr. Denies head trauma. Denies fever, headache, cough, SOB, chest/AB pain, bowel movement changes. Past History - Past Medical History Allergies/Adverse Reactions: Allergies Allergy/AdvReac Type Severity Reaction Status Date / Time No Known Allergies Allergy Verified 01/25/19 23:31 Home Medications: Ambulatory Orders Atorvastatin Ca [Lipitor] 20 mg PO HS 02/14/18 Linaclotide [Linzess] 145 mcg PO DAILY 02/15/18 levETIRAcetam [Keppra -] 750 mg PO BID 30 Days #180 tablet 02/16/18 Aspirin [ASA -] 81 mg PO DAILY 01/26/19 Esomeprazole Magnesium [Nexium 24Hr] 40 mg PO DAILY 01/26/19 Insulin Lispro [Humalog] 10 units SQ TID 01/26/19 Methocarbamol 500 mg PO BID 01/26/19 Tamsulosin HCl 0.4 mg PO DAILY 01/26/19 Insulin Degludec [Tresiba] 50 unit SQ DAILY #1 vial 01/27/19 Losartan Potassium [Cozaar -] 25 mg PO DAILY #30 tablet 01/27/19 Miscellaneous Medical Supply [Outpatient Order] 1 each ASDIR #1 misc Anemia: No (denies) COPD: No Diabetes: Yes Disorders: Yes (BPH) HTN: Yes Hypercholesterolemia: Yes Seizures: Yes - Psycho Social/Smoking Cessation Hx Smoking History: Former smoker Have you smoked in the past 12 months: No Number of Cigarettes Smoked Daily: 5 Information on smoking cessation initiated: No 'Breaking Loose' booklet given: 09/16/16 Hx Alcohol Use: No Drug/Substance Use Hx: No Substance Use Type: None Hx Substance Use Treatment: No Review of Systems - Review of Systems Constitutional: No: Chills, Fever HEENTM: No: Eye Pain, Nose Pain, Throat Pain, Mouth Pain Respiratory: No: Cough, Shortness of Breath Cardiac (ROS): No: Chest Pain, Palpitations ABD/GI: No: Abdominal Distended, Constipated, Diarrhea, Nausea, Vomiting : Yes: Frequency. No: Burning, Flank Pain, Hematuria Musculoskeletal: No: Back Pain, Joint Pain Integumentary: No: Bruising, Flushing, Lesions Neurological: Yes: Seizure. No: Headache Psychiatric: No: Anxiety, Depression Endocrine: No: Excessive Sweating, Flushing, Intolerance to Cold, Intolerance to Heat Hematologic/Lymphatic: No: Anemia, Blood Clots *Physical Exam - Vital Signs Last Vital Signs Temp Pulse Resp BP Pulse Ox 98.0 F 100 H 18 132/85 97 07/20/19 04:23 07/20/19 04:23 07/20/19 04:23 07/20/19 04:23 07/20/19 04:23 - Physical Exam General Appearance: Yes: Nourished, Appropriately Dressed. No: Apparent Distress HEENT: positive: EOMI, AIDEN, Normal Voice, Hearing Grossly Normal. negative: Scleral Icterus (R), Scleral Icterus (L), Nasal Congestion, Rhinorrhea Respiratory/Chest: positive: Lungs Clear, Normal Breath Sounds. negative: Chest Tender, Respiratory Distress, Crackles, Rhonchi, Stridor, Wheezing Cardiovascular: positive: Regular Rhythm, S1, S2, Tachycardia. negative: Edema , Murmur Gastrointestinal/Abdominal: positive: Normal Bowel Sounds, Flat, Soft. negative : Tender, Organomegaly, Distended, Guarding, Rebound Musculoskeletal: negative: CVA Tenderness (R), CVA Tenderness (L) Extremity: positive: Delayed Capillary Refill (3s) Integumentary: positive: Normal Color Neurologic: positive: quarantine inspector II-XII NML intact, Fully Oriented, Alert, Normal Mood/ Affect, Normal Response, Motor Strength 5/5, Responsive. negative: Sensory Deficit, Confused, Disoriented ED Treatment Course - LABORATORY CBC & Chemistry Diagram: 07/20/19 05:02 07/20/19 05:02 Medical Decision Making - Medical Decision Making 07/20/19 06:00 CBC CMP trop UA keppra EKG 1L NS for dehydration, 8u insulin for hyperglycemia Cr 1.4, BG 523 CBC, UTI, bhydroxybutyrate normal, trop neg, no ketones in urine Romulo Flores is a 74yM w PMHx IDDM, HTN, HLD, seizures presenting w seizure d/ t medication non-compliance vs hyperglycemia. On presentation, pt neuro intact, back to baseline, asymptomatic. Hyperglycemic w BG 523, has GYA w Cr 1.4. Given 1L NS for dehydration, 8u insulin for hyperglycemia, loaded w 1g keppra for seizure. No evidence of DKA/HHS (normal hydroxybutyrate, no urine ketones), does not have UTI Signed off to day team -pending hydroxybutyrate -remeasure BG -anticipate dc home Discharge - Discharge Information Problems reviewed: Yes Clinical Impression/Diagnosis: Hyperglycemia, GAY (acute kidney injury) Condition: Improved Disposition: HOME - Follow up/Referral - Patient Discharge Instructions Patient Printed Discharge Instructions: DI for Seizure Disorder -- Adult, DI for Hyperglycemia -- Adult Additional Instructions: You were seen for seizure. Your glucose was high. You were given medication for your seizure and glucose. Please take your medications as directed and follow up with your primary care doctor regarding this visit. Do not stop medications by yourself Come back to the ED if you have another seizure, chest pain, or lose consciousness - Post Discharge Activity
[2019-07-20 05:10] LABS: BASO % 0.8 % (0-2.0); EOS % 1.4 % (0-4.5); HEMATOCRIT 43.6 % (35.4-49); HEMOGLOBIN 14.5 GM/dL (11.7-16.9); LYMPH % 25.7 % (8-40); MCH 28.9 pg (25.7-33.7); MCHC 33.2 g/dl (32.0-35.9); MEAN CELL VOLUME 87.2 fl (80-96); MONO % 8.2 % (3.8-10.2); NEUT % 63.9 % (42.8-82.8); PLATELET COUNT 160 K/MM3 (134-434); RDW 13.3 % (11.9-15.9); WHITE BLOOD COUNT 4.8 K/mm3 (4.0-10.0)
[2019-07-20 05:46] LABS: ALBUMIN 3.4 g/dl (3.4-5.0); BILIRUBIN,TOTAL 0.4 mg/dL (0.2-1); BLOOD UREA NITROGEN 16.8 mg/dL (7-18); CALCIUM 9.4 mg/dL (8.5-10.1); CREATININE 1.4 mg/dL (0.55-1.3); POTASSIUM 4.2 mmol/L (3.5-5.1); TOT PROT 6.7 g/dl (6.4-8.2)
--- NOTE | 2019-07-20 06:28 | PDOC ---
Attending Attestation - Resident Resident Name: AlexanderChaparro - ED Attending Attestation I have performed the following: I have examined & evaluated the patient, The case was reviewed & discussed with the resident, I agree w/resident's findings & plan, Exceptions are as noted - HPI HPI: 07/20/19 06:24 Mr. Flores is a 74 yo M h/o DM, HTN, HLD, seizures presenting w seizure. Pt is a poor historian, doesn't remember seizure episode. Pt endorses medication noncompliance as he is trying to self-wean off meds. Denies head trauma. Denies fever, chills, headache - Physicial Exam PE: 07/20/19 06:26 GENERAL: The patient is in no acute distress, no signs of trauma ENT: Ears normal, nares patent, oropharynx clear without exudates. Moist mucous membranes. NECK: Normal range of motion, supple, no nuchal rigidity LUNGS: Breath sounds equal, clear to auscultation bilaterally. No wheezes, and no crackles. HEART:Regular rate and rhythm, normal S1 and S2 without murmur, rub or gallop. ABDOMEN: Soft, nontender, normoactive bowel sounds. EXTREMITIES: Normal range of motion, no edema. NEUROLOGICAL: Cranial nerves II through XII grossly intact. Normal speech. No focal neurological deficits. SKIN: Warm, Dry, normal turgor, no rashes or lesions noted. - Medical Decision Making 07/20/19 06:27 EKG: Normal sinus rhythm, rate of 90 bpm, is normal, intervals are abnormal-NM: 204 MS, QRS normal, QTC 441 MS, no ST elevations or depressions, T waves are upright 74-year-old male with a history of seizure disorder who is noncompliant with his medication presenting to the emergency department status post a seizure. Breakthrough seizure secondary to medication noncompliance, could be due to ACS , underlying infection, lowered seizure threshold for other reasons, electrolyte abnormality We will do: Labs CT head not indicated in this case Keppra level Saline lock Reassess
[2019-07-20] MEDS ORDERED: SODIUM CHLORIDE 0.9% 500 ML INFUS.BAG IV ONE (06:31)
[2019-07-20] MEDS ORDERED: INSULIN REGULAR HUMAN 100 UNITS/ML *VIAL IVPUSH ONE (06:31)
[2019-07-20 06:32] LABS: PH,URINE 5.5 (5.0-8.0); URINE APPEARANCE CLEAR; URINE BILIRUBIN NEGATIVE (NEGATIVE); URINE COLOR YELLOW; URINE GLUCOSE (UA) 3+ (NEGATIVE); URINE KETONE NEGATIVE (NEGATIVE); URINE LEUK ESTERASE NEGATIVE (NEGATIVE); URINE NITRITE NEGATIVE (NEGATIVE); URINE PROTEIN NEGATIVE (NEGATIVE); URINE UROBILINOGEN 0.2 mg/dL (0.2-1.0)
[2019-07-20 07:05] VITALS: TEMP 98.1
[2019-07-20] MEDS ORDERED: levETIRAcetam 500 MG/5 ML INJECTION VIAL IVPB ONE ×2 (07:14→07:25)
--- NOTE | 2019-07-20 09:17 | PDOC ---
*Physical Exam - Vital Signs Last Vital Signs Temp Pulse Resp BP Pulse Ox 98.1 F 94 H 18 119/86 96 07/20/19 07:04 07/20/19 07:04 07/20/19 07:04 07/20/19 07:04 07/20/19 07:04 ED Treatment Course - LABORATORY CBC & Chemistry Diagram: 07/20/19 05:02 07/20/19 05:02 - ADDITIONAL ORDERS Additional order review: Laboratory Results 07/20/19 07/20/19 07/20/19 06:15 05:02 05:02 Sodium 138 Potassium 4.2 Chloride 102 Carbon Dioxide 29 Anion Gap 7 L BUN 16.8 Creatinine 1.4 H Est GFR (CKD-EPI)AfAm 56.16 Est GFR (CKD-EPI)NonAf 48.46 Random Glucose 523 H* Calcium 9.4 Total Bilirubin 0.4 AST 15 ALT 26 Alkaline Phosphatase 67 Creatine Kinase 129 Troponin I < 0.02 Total Protein 6.7 Albumin 3.4 Beta-Hydroxybutyrate 1.8 Urine Color Yellow Urine Appearance Clear Urine pH 5.5 Ur Specific [place] 1.039 H Urine Protein Negative Urine Glucose (UA) 3+ H Urine Ketones Negative Urine Blood Negative Urine Nitrite Negative Urine Bilirubin Negative Urine Urobilinogen 0.2 Ur Leukocyte Esterase Negative 07/20/19 05:02 RBC 5.00 MCV 87.2 MCHC 33.2 RDW 13.3 MPV 10.0 Neutrophils % 63.9 Lymphocytes % 25.7 Monocytes % 8.2 Eosinophils % 1.4 Basophils % 0.8 - Medications Given in the ED: ED Medications Discontinued Medications Generic Name Dose Route Start Last Admin Trade Name Rolo PRN Reason Stop Dose Admin Insulin Human Regular 8 units 07/20/19 06:31 07/20/19 07:07 Novolin R Vial *For Ivpush Or Iv Drip Only* IVPUSH 07/20/19 06:32 8 units ONCE ONE Administration Levetiracetam 1,000 mg 07/20/19 07:14 07/20/19 07:36 Keppra Injection - IVPB 07/20/19 07:15 1,000 mg ONCE ONE Administration Sodium Chloride 1,000 ml 07/20/19 06:31 07/20/19 07:07 Normal Saline - IV 07/20/19 06:32 1,000 ml ONCE ONE Administration Medical Decision Making - Medical Decision Making 07/20/19 09:17 - Sign out received from Dr. Munoz. - Keppra 2nd dose ordered - Will check BG 07/20/19 09:30 - B Hydroxybutyrate is WNL 07/20/19 09:59 - POC Glucose 315, will D/C Discharge - Discharge Information Problems reviewed: Yes Clinical Impression/Diagnosis: Hyperglycemia, GAY (acute kidney injury) Condition: Improved Disposition: HOME - Admission No - Follow up/Referral - Patient Discharge Instructions Patient Printed Discharge Instructions: DI for Seizure Disorder -- Adult, DI for Hyperglycemia -- Adult Additional Instructions: You were seen for seizure. Your glucose was high. You were given medication for your seizure and glucose. Please take your medications as directed and follow up with your primary care doctor regarding this visit. Do not stop medications by yourself Come back to the ED if you have another seizure, chest pain, or lose consciousness - Post Discharge Activity
[2019-07-20 10:42] VITALS: BP 132/84; PULSE 77
--- NOTE | 2019-07-20 14:24 | EKG ---
Test Reason : Blood Pressure : / mmHG Vent. Rate : 098 BPM Atrial Rate : 098 BPM P-R Int : 204 ms QRS Dur : 102 ms QT Int : 346 ms P-R-T Axes : 054 -04 110 degrees QTc Int : 441 ms NORMAL SINUS RHYTHM NON-SPECIFIC INTRA-VENTRICULAR CONDUCTION DELAY NONSPECIFIC ST AND T WAVE ABNORMALITY ABNORMAL ECG Confirmed by DAMION BOYKIN MD ([id number]) on 07/20/2019 2:23:35 PM Referred By: Confirmed By:DAMION BOYKIN MD
== END 2019-07-20 10:45 | disposition home or self-care (01) ==
LOC: JER 04:12
PROC: 3E033GC Introduction of Other Therapeutic Substance into Peripheral Vein, Percutaneous Approach (ICD-10-PCS; principal; 2019-07-20)
PROC: 3E033VG Introduction of Insulin into Peripheral Vein, Percutaneous Approach (ICD-10-PCS; 2019-07-20)
DX: E11.65 Type 2 diabetes mellitus with hyperglycemia (principal); Z79.4 Long term (current) use of insulin; G40.909 Epilepsy, unspecified, not intractable, without status epilepticus; N17.9 Acute kidney failure, unspecified; I10 Essential (primary) hypertension; E78.00 Pure hypercholesterolemia, unspecified; N40.0 Benign prostatic hyperplasia without lower urinary tract symptoms
CPT/HCPCS: 36415; 80053; 80177; 81003; 82010; 82550; 82962; 84484; 85025; 87086; 93005; 93010; 99283-25

== ENCOUNTER 2020-09-06 21:04 | Observation (INO) | payer BC ==
[2020-09-06] MEDS ORDERED: SODIUM CHLORIDE 1,000 ML IV STA ×2 (21:25→22:51)
[2020-09-06] MEDS ORDERED: LORazepam 2 MG/ML SDV VIAL ONE (21:53)
[2020-09-06 22:09] LABS: VENOUS BASE EXCESS -3.7 mmol/L (-2-2); VENOUS PCO2 49.7 mmHg (38-52); VENOUS PH 7.29 (7.310-7.410)
[2020-09-06 22:10] LABS: BASO % 1.2 % (0-2.0); EOS % 1.2 % (0-4.5); HEMOGLOBIN 14.1 GM/dL (11.7-16.9); LYMPH % 25.4 % (8-40); MCH 29.1 pg (25.7-33.7); MCHC 32.9 g/dl (32.0-35.9); MEAN CELL VOLUME 88.4 fl (80-96); MEAN PLT VOLUME 9.8 fl (7.5-11.1); NEUT % 65.2 % (42.8-82.8); PLATELET COUNT 183 K/MM3 (134-434); RBC 4.86 M/mm3 (4.00-5.60); RDW 13.4 % (11.9-15.9); WHITE BLOOD COUNT 4.9 K/mm3 (4.0-10.0)
[2020-09-06 22:27] LABS: CHLORIDE 102 mmol/L (98-107); POTASSIUM 4.3 mmol/L (3.5-5.1); SODIUM 137 mmol/L (136-145)
[2020-09-06 22:29] LABS: ALBUMIN 3.4 g/dl (3.4-5.0); ANION GAP 10 MMOL/L (8-16); CALCIUM 8.6 mg/dL (8.5-10.1); CO2 26 mmol/L (21-32)
[2020-09-06 22:30] LABS: BLOOD UREA NITROGEN 15.6 mg/dL (7-18); MAGNESIUM 2.1 mg/dL (1.8-2.4)
[2020-09-06 22:32] LABS: SGPT/ALT 31 U/L (13-61)
[2020-09-06 22:33] LABS: CREATININE 1.3 mg/dL (0.55-1.3); SGOT/AST 18 U/L (15-37)
[2020-09-06 22:34] LABS: BILIRUBIN,TOTAL 0.3 mg/dL (0.2-1); TOT PROT 6.8 g/dl (6.4-8.2)
[2020-09-06 22:35] LABS: ALK PHOS 87 U/L (45-117)
[2020-09-06 22:49] LABS: GLUCOSE,RANDOM 463 mg/dL (74-106)
[2020-09-06] MEDS ORDERED: INSULIN REGULAR HUMAN 100 UNITS/ML *VIAL IVPUSH ONE (22:51)
[2020-09-06] MEDS ORDERED: levETIRAcetam 250 MG TABLET PO ONE (22:57)
[2020-09-06] MEDS ORDERED: levETIRAcetam 500 MG TABLET (FP) PO ONE ×2 (22:57→23:00)
[2020-09-06] MEDS ORDERED: levETIRAcetam 500 MG/5 ML INJECTION VIAL IVPB ONE ×2 (23:01)
[2020-09-07 01:21] LABS: POTASSIUM 3.9 mmol/L (3.5-5.1)
[2020-09-07 01:22] LABS: CALCIUM 8.7 mg/dL (8.5-10.1)
[2020-09-07 01:23] LABS: BLOOD UREA NITROGEN 13.8 mg/dL (7-18)
[2020-09-07 01:26] LABS: CREATININE 1.1 mg/dL (0.55-1.3)
[2020-09-07 03:07] LABS: EPI CELLS 0 /uL (0-25.1); HYALINE CASTS 0 /uL (0-3.1); URINE APPEARANCE CLEAR; URINE BACTERIA 0 /uL (0-1359); URINE BILIRUBIN NEGATIVE (NEGATIVE); URINE COLOR YELLOW; URINE GLUCOSE (UA) 3+ (NEGATIVE); URINE KETONE NEGATIVE (NEGATIVE); URINE LEUK ESTERASE NEGATIVE (NEGATIVE); URINE NITRITE NEGATIVE (NEGATIVE); URINE PROTEIN NEGATIVE (NEGATIVE); URINE RBC 2 /uL (0-23.9); URINE UROBILINOGEN 0.2 mg/dL (0.2-1.0); URINE WBC 1 /uL (0-25.8)
[2020-09-07 03:48] LABS: VENOUS BASE EXCESS -4.6 mmol/L (-2-2); VENOUS O2 SATURATION 81.8 % (70-80); VENOUS PH 7.321 (7.310-7.410)
[2020-09-07] MEDS: HEPARIN NA (PORCINE) 5,000 UNITS/ML 1ML VIAL SQ SCH ×3 (06:55→21:51)
[2020-09-07] MEDS: INSULIN SLIDING SCALE (NOVOLOG) 1 VIAL SQ SCH ×4 (06:56→21:52)
[2020-09-07 07:30] LABS: BASO % 1.2 % (0-2.0); HEMATOCRIT 39.7 % (35.4-49); HEMOGLOBIN 13.1 GM/dL (11.7-16.9); LYMPH % 30.2 % (8-40); MCH 28.5 pg (25.7-33.7); MEAN CELL VOLUME 86.4 fl (80-96); MEAN PLT VOLUME 10.1 fl (7.5-11.1); MONO % 10.1 % (3.8-10.2); NEUT % 55.5 % (42.8-82.8); PLATELET COUNT 175 K/MM3 (134-434); RBC 4.59 M/mm3 (4.00-5.60); RDW 13.3 % (11.9-15.9); WHITE BLOOD COUNT 4.8 K/mm3 (4.0-10.0)
[2020-09-07] MEDS ORDERED: INSULIN (LEVEMIR) 100 UNITS/ML UNITS SQ ONE ×2 (08:01)
[2020-09-07] MEDS ORDERED: LORazepam 2 MG/ML SDV VIAL IVPUSH PRN (08:02)
[2020-09-07 08:07] VITALS: BMI 25.7
[2020-09-07] MEDS ORDERED: levETIRAcetam 500 MG TABLET (FP) PO SCH (10:00)
[2020-09-07] MEDS ORDERED: LOSARTAN POTASSIUM 25 MG TABLET PO SCH (10:00)
[2020-09-07] MEDS ORDERED: levETIRAcetam 500 MG TABLET (FP) PO ONE ×2 (11:10→21:07)
[2020-09-07] MEDS ORDERED: levETIRAcetam 250 MG TABLET PO ONE ×2 (11:10→21:07)
[2020-09-07] MEDS: PHENYTOIN NA EXTENDED 100 MG CAPSULE (FP) PO SCH (11:12)
[2020-09-07 11:46] LABS: POTASSIUM 4.3 mmol/L (3.5-5.1)
[2020-09-07 11:47] LABS: CALCIUM 8.3 mg/dL (8.5-10.1)
[2020-09-07 11:49] LABS: ALBUMIN 2.9 g/dl (3.4-5.0); BLOOD UREA NITROGEN 13.2 mg/dL (7-18)
[2020-09-07 11:52] LABS: CREATININE 0.9 mg/dL (0.55-1.3)
[2020-09-07 11:53] LABS: BILIRUBIN,TOTAL 0.3 mg/dL (0.2-1)
[2020-09-07] MEDS ORDERED: LOSARTAN POTASSIUM 50 MG TABLET PO SCH (14:46)
[2020-09-07] MEDS ORDERED: LOSARTAN POTASSIUM 25 MG TABLET PO ONE (14:46)
[2020-09-08] MEDS: INSULIN SLIDING SCALE (NOVOLOG) 1 VIAL SQ SCH ×3 (06:31→16:47)
[2020-09-08] MEDS: HEPARIN NA (PORCINE) 5,000 UNITS/ML 1ML VIAL SQ SCH ×2 (06:32→13:52)
[2020-09-08] MEDS ORDERED: INSULIN (LEVEMIR) 100 UNITS/ML UNITS SQ SCH ×2 (07:00→10:00)
[2020-09-08 08:27] LABS: BASO % 1.1 % (0-2.0); EOS % 3.1 % (0-4.5); HEMOGLOBIN 13.5 GM/dL (11.7-16.9); MCH 28.9 pg (25.7-33.7); MEAN CELL VOLUME 87.6 fl (80-96); MEAN PLT VOLUME 10.3 fl (7.5-11.1); MONO % 7.9 % (3.8-10.2); NEUT % 44.9 % (42.8-82.8); PLATELET COUNT 162 K/MM3 (134-434); RBC 4.69 M/mm3 (4.00-5.60); RDW 13.5 % (11.9-15.9); WHITE BLOOD COUNT 3.9 K/mm3 (4.0-10.0)
[2020-09-08 08:55] LABS: POTASSIUM 3.9 mmol/L (3.5-5.1)
[2020-09-08] MEDS ORDERED: levETIRAcetam 250 MG TABLET PO ONE (09:02)
[2020-09-08] MEDS ORDERED: levETIRAcetam 500 MG TABLET (FP) PO ONE (09:02)
[2020-09-08 09:03] LABS: ALBUMIN 2.9 g/dl (3.4-5.0)
[2020-09-08 09:05] LABS: CREATININE 0.7 mg/dL (0.55-1.3)
[2020-09-08 09:06] LABS: CALCIUM 8.9 mg/dL (8.5-10.1); MAGNESIUM 2.1 mg/dL (1.8-2.4)
[2020-09-08 09:07] LABS: TOT PROT 5.9 g/dl (6.4-8.2)
[2020-09-08] MEDS: PHENYTOIN NA EXTENDED 100 MG CAPSULE (FP) PO SCH (09:09)
[2020-09-08 09:11] LABS: BILIRUBIN,TOTAL 0.5 mg/dL (0.2-1)
[2020-09-08] MEDS ORDERED: ACETAMINOPHEN 325 MG TABLET (FP) PO PRN (11:18)
[2020-09-08 14:15] VITALS: BP 144/83; PULSE 69; TEMP 97.5
== END 2020-09-08 18:13 | disposition home or self-care (01) ==
LOC: JER 21:04 → JERBED 09-07 00:07 → J8W 09-07 06:44
PROVIDERS: ADMIT Hospitalist; ATTEND Nurse Practitioner Family
PROC: 3E023GC Introduction of Other Therapeutic Substance into Muscle, Percutaneous Approach (ICD-10-PCS; principal; 2020-09-07)
PROC: 3E013VG Introduction of Insulin into Subcutaneous Tissue, Percutaneous Approach (ICD-10-PCS; 2020-09-07)
PROC: 3E033VG Introduction of Insulin into Peripheral Vein, Percutaneous Approach (ICD-10-PCS; 2020-09-07)
PROC: 3E033GC Introduction of Other Therapeutic Substance into Peripheral Vein, Percutaneous Approach (ICD-10-PCS; 2020-09-07)
PROC: 3E0337Z Introduction of Electrolytic and Water Balance Substance into Peripheral Vein, Percutaneous Approach (ICD-10-PCS; 2020-09-07)
DX: E11.65 Type 2 diabetes mellitus with hyperglycemia (principal); Z91.14 Patient's other noncompliance with medication regimen; I10 Essential (primary) hypertension; E78.5 Hyperlipidemia, unspecified; R56.9 Unspecified convulsions; Z29.9 Encounter for prophylactic measures, unspecified; R79.89 Other specified abnormal findings of blood chemistry; F17.210 Nicotine dependence, cigarettes, uncomplicated
CPT/HCPCS: 36415; 71045-TC-FY; 80048; 80053; 80061; 80177; 80185; 81003; 82010; 82550; 82803; 82962; 83036; 83605; 83721; 83735; 84100; 84443; 84484; 85025; 93005; 93010; 99285-25; C9803; G0378; J1644; U0003

== ENCOUNTER 2021-02-27 01:59 | Inpatient (IN) | payer BC, OTHER ==
[2021-02-27 02:33] LABS: BASO % 0.7 % (0-2.0); EOS % 1.5 % (0-4.5); HEMATOCRIT 39.8 % (35.4-49); HEMOGLOBIN 13.4 GM/dL (11.7-16.9); LYMPH % 30.9 % (8-40); MCH 28.8 pg (25.7-33.7); MCHC 33.5 g/dl (32.0-35.9); MEAN CELL VOLUME 85.9 fl (80-96); MEAN PLT VOLUME 10.2 fl (7.5-11.1); MONO % 6.8 % (3.8-10.2); NEUT % 60.1 % (42.8-82.8); PLATELET COUNT 194 K/MM3 (134-434); RBC 4.63 M/mm3 (4.00-5.60); RDW 13.8 % (11.9-15.9); WHITE BLOOD COUNT 7.8 K/mm3 (4.0-10.0)
[2021-02-27 02:35] LABS: VENOUS BASE EXCESS 0.6 mmol/L (-2-2); VENOUS O2 SATURATION 64.2 % (70-80); VENOUS PCO2 54.1 mmHg (38-52); VENOUS PH 7.326 (7.310-7.410)
[2021-02-27 02:37] LABS: EPI CELLS 17 /uL (0-25.1); HYALINE CASTS 1 /uL (0-3.1); PH,URINE 5.5 (5.0-8.0); URINE APPEARANCE CLEAR; URINE BACTERIA 17 /uL (0-1359); URINE BILIRUBIN NEGATIVE (NEGATIVE); URINE COLOR YELLOW; URINE GLUCOSE (UA) 3+ (NEGATIVE); URINE KETONE NEGATIVE (NEGATIVE); URINE LEUK ESTERASE NEGATIVE (NEGATIVE); URINE NITRITE NEGATIVE (NEGATIVE); URINE PROTEIN 1+ (NEGATIVE); URINE RBC 24 /uL (0-23.9); URINE UROBILINOGEN 0.2 mg/dL (0.2-1.0); URINE WBC 8 /uL (0-25.8)
[2021-02-27 02:50] LABS: INR 0.92 (0.83-1.09); PROTHROMBIN TIME (PATIENT) 11.4 SEC (9.7-13.0)
[2021-02-27 02:53] LABS: ACTIVATED PTT 27.8 SECONDS (25.2-36.5)
[2021-02-27 02:59] LABS: SGOT/AST 9 U/L (15-37); SGPT/ALT 16 U/L (13-61)
[2021-02-27] MEDS ORDERED: INSULIN REGULAR HUMAN 100 UNITS/ML *VIAL SQ ONE (03:00)
[2021-02-27 03:02] LABS: ALK PHOS 69 U/L (45-117)
[2021-02-27] MEDS ORDERED: FOSPHENYTOIN SODIUM 1,000 MG in SODIUM CHLORIDE 100 ML IVPB ONE (03:05)
[2021-02-27 03:07] LABS: LACTIC ACID 6.7 mmol/L (0.4-2.0)
[2021-02-27] MEDS ORDERED: INSULIN REGULAR HUMAN 100 UNITS/ML *VIAL ONE (03:08)
[2021-02-27 04:21] LABS: ALBUMIN 3.4 g/dl (3.4-5.0); ANION GAP 11 MMOL/L (8-16); BILIRUBIN,TOTAL 0.4 mg/dL (0.2-1); BLOOD UREA NITROGEN 17.7 mg/dL (7-18); CALCIUM 9.4 mg/dL (8.5-10.1); CHLORIDE 99 mmol/L (98-107); CO2 27 mmol/L (21-32); CREATININE 1.6 mg/dL (0.55-1.3); GLUCOSE,RANDOM 508 mg/dL (74-106); SODIUM 137 mmol/L (136-145); TOT PROT 6.9 g/dl (6.4-8.2)
[2021-02-27 07:04] LABS: LACTIC ACID 4.1 mmol/L (0.4-2.0)
[2021-02-27 07:12] VITALS: BMI 27.1
[2021-02-27] MEDS ORDERED: HALOPERIDOL LACTATE 5 MG/ML IM ONE (09:36)
[2021-02-27] MEDS ORDERED: levETIRAcetam 500 MG TABLET (FP) PO ONE (10:03)
[2021-02-27] MEDS: SODIUM CHLORIDE 1,000 ML IV SCH ×2 (10:07→21:49)
[2021-02-27 10:47] LABS: MAGNESIUM 2.3 mg/dL (1.8-2.4); PHOSPHOROUS 3.8 mg/dL (2.5-4.9)
[2021-02-27 11:54] LABS: BASO % 0.5 % (0-2.0); EOS % 0.9 % (0-4.5); HEMATOCRIT 38.5 % (35.4-49); HEMOGLOBIN 12.9 GM/dL (11.7-16.9); MCHC 33.5 g/dl (32.0-35.9); MEAN CELL VOLUME 86.5 fl (80-96); MEAN PLT VOLUME 9.8 fl (7.5-11.1); MONO % 8.1 % (3.8-10.2); NEUT % 75.5 % (42.8-82.8); PLATELET COUNT 180 K/MM3 (134-434); RBC 4.45 M/mm3 (4.00-5.60); RDW 13.6 % (11.9-15.9); WHITE BLOOD COUNT 8.4 K/mm3 (4.0-10.0)
[2021-02-27] MEDS: MUPIROCIN 2% TOPICAL OINTMENT FOR DECOLONIZATION NS SCH ×2 (12:00→21:48)
[2021-02-27] MEDS: INSULIN SLIDING SCALE (NOVOLOG) 1 VIAL SQ SCH ×2 (18:20→21:48)
[2021-02-27] MEDS: CHLORHEXIDINE GLUCONATE 4% CLEANSER FOR DECOLONIZATION TP SCH (21:48)
[2021-02-27] MEDS: PHENYTOIN NA EXTENDED 100 MG CAPSULE (FP) PO SCH (21:48)
[2021-02-28] MEDS: PHENYTOIN NA EXTENDED 100 MG CAPSULE (FP) PO SCH ×3 (06:13→23:20)
[2021-02-28] MEDS: INSULIN SLIDING SCALE (NOVOLOG) 1 VIAL SQ SCH ×4 (06:14→23:23)
[2021-02-28 07:44] LABS: BASO % 0.6 % (0-2.0); EOS % 1.4 % (0-4.5); HEMATOCRIT 39.9 % (35.4-49); HEMOGLOBIN 13.3 GM/dL (11.7-16.9); LYMPH % 23.6 % (8-40); MCHC 33.5 g/dl (32.0-35.9); MEAN CELL VOLUME 86.5 fl (80-96); MEAN PLT VOLUME 10.4 fl (7.5-11.1); MONO % 9.4 % (3.8-10.2); PLATELET COUNT 202 K/MM3 (134-434); RBC 4.61 M/mm3 (4.00-5.60); RDW 13.2 % (11.9-15.9); WHITE BLOOD COUNT 6.5 K/mm3 (4.0-10.0)
[2021-02-28 07:56] LABS: ALBUMIN 3.2 g/dl (3.4-5.0)
[2021-02-28 07:57] LABS: MAGNESIUM 1.9 mg/dL (1.8-2.4)
[2021-02-28 07:59] LABS: CREATININE 0.8 mg/dL (0.55-1.3)
[2021-02-28 08:00] LABS: PHOSPHOROUS 3.4 mg/dL (2.5-4.9)
[2021-02-28 08:01] LABS: BILIRUBIN,TOTAL 0.7 mg/dL (0.2-1); TOT PROT 6.6 g/dl (6.4-8.2)
[2021-02-28] MEDS: levETIRAcetam 500 MG TABLET (FP) PO SCH ×2 (09:40→09:48)
[2021-02-28] MEDS: TAMSULOSIN HCL 0.4 MG CAP PO SCH ×2 (09:41→10:59)
[2021-02-28] MEDS: MUPIROCIN 2% TOPICAL OINTMENT FOR DECOLONIZATION NS SCH ×2 (09:43→23:21)
[2021-02-28] MEDS: SODIUM CHLORIDE 1,000 ML IV SCH (09:49)
[2021-02-28] MEDS ORDERED: PANTOPRAZOLE SODIUM 40 MG VIAL IVPUSH SCH (10:00)
[2021-02-28] MEDS ORDERED: METOPROLOL TARTRATE 5 MG/5 ML VIAL IVPUSH ONE (18:11)
[2021-02-28] MEDS ORDERED: HALOPERIDOL DECANOATE 100 MG/ML IM PRN (18:12)
[2021-02-28 19:31] LABS: EPI CELLS 1 /uL (0-25.1); HYALINE CASTS 0 /uL (0-3.1); PH,URINE 6.5 (5.0-8.0); URINE APPEARANCE CLEAR; URINE BACTERIA 17 /uL (0-1359); URINE BILIRUBIN NEGATIVE (NEGATIVE); URINE COLOR YELLOW; URINE GLUCOSE (UA) 2+ (NEGATIVE); URINE KETONE NEGATIVE (NEGATIVE); URINE LEUK ESTERASE NEGATIVE (NEGATIVE); URINE NITRITE NEGATIVE (NEGATIVE); URINE PROTEIN 1+ (NEGATIVE); URINE UROBILINOGEN 0.2 mg/dL (0.2-1.0); URINE WBC 2 /uL (0-25.8)
[2021-02-28 19:50] LABS: COCAINE, UR NEGATIVE ng/ml (CUTOFF=300); METHADONE, UR NEGATIVE ng/ml (CUTOFF=300); URINE AMPHETAMINES NEGATIVE ng/ml (CUTOFF=500); URINE BARBITURATES NEGATIVE ng/ml (CUTOFF=200)
[2021-02-28 19:53] LABS: PHENCYCLIDINE,URINE NEGATIVE ng/ml (CUTOFF=25)
[2021-02-28 20:02] LABS: OPIATES, URI NEGATIVE ng/ml (CUTOFF=300)
[2021-02-28 20:09] LABS: URINE BENZODIAZEPINES POSITIVE ng/ml (CUTOFF=200)
[2021-02-28 20:19] LABS: URINE RBC 67.2 /uL (0-23.9)
[2021-02-28] MEDS: Lacosamide 200 MG/20 ML VIAL IVPB SCH (23:21)
[2021-02-28] MEDS: CHLORHEXIDINE GLUCONATE 4% CLEANSER FOR DECOLONIZATION TP SCH (23:21)
[2021-03-01] MEDS ORDERED: HALOPERIDOL LACTATE 5 MG/ML IM ONE (02:52)
[2021-03-01] MEDS: PHENYTOIN NA EXTENDED 100 MG CAPSULE (FP) PO SCH ×3 (06:21→23:00)
[2021-03-01 09:51] LABS: EOS % 2.2 % (0-4.5); HEMATOCRIT 39.6 % (35.4-49); HEMOGLOBIN 13.2 GM/dL (11.7-16.9); LYMPH % 32.8 % (8-40); MCH 28.8 pg (25.7-33.7); MCHC 33.4 g/dl (32.0-35.9); MEAN CELL VOLUME 86.3 fl (80-96); MEAN PLT VOLUME 9.7 fl (7.5-11.1); MONO % 10.9 % (3.8-10.2); NEUT % 53.1 % (42.8-82.8); PLATELET COUNT 203 K/MM3 (134-434); RBC 4.59 M/mm3 (4.00-5.60); RDW 13.8 % (11.9-15.9); WHITE BLOOD COUNT 5.7 K/mm3 (4.0-10.0)
[2021-03-01] MEDS ORDERED: PANTOPRAZOLE SODIUM 40 MG VIAL IVPUSH SCH (10:00)
[2021-03-01 10:11] LABS: ALBUMIN 3.1 g/dl (3.4-5.0); BLOOD UREA NITROGEN 10.3 mg/dL (7-18)
[2021-03-01 10:13] LABS: CALCIUM 8.4 mg/dL (8.5-10.1)
[2021-03-01 10:14] LABS: CREATININE 0.8 mg/dL (0.55-1.3)
[2021-03-01 10:16] LABS: TOT PROT 6.2 g/dl (6.4-8.2)
[2021-03-01] MEDS: TAMSULOSIN HCL 0.4 MG CAP PO SCH (10:44)
[2021-03-01] MEDS: INSULIN SLIDING SCALE (NOVOLOG) 1 VIAL SQ SCH ×3 (11:49→23:01)
[2021-03-01] MEDS: LACOSAMIDE 50 MG TABLET PO SCH (23:00)
[2021-03-02] MEDS: PHENYTOIN NA EXTENDED 100 MG CAPSULE (FP) PO SCH ×3 (07:02→23:08)
[2021-03-02] MEDS ORDERED: INSULIN (NOVOLOG) ASPART 100 UNITS/ML 10ML VIAL ONE (07:05)
[2021-03-02] MEDS: INSULIN SLIDING SCALE (NOVOLOG) 1 VIAL SQ SCH ×5 (07:07→22:42)
[2021-03-02] MEDS: TAMSULOSIN HCL 0.4 MG CAP PO SCH (08:52)
[2021-03-02] MEDS: PANTOPRAZOLE 40 MG TABLET PO SCH (09:22)
[2021-03-02] MEDS: LACOSAMIDE 50 MG TABLET PO SCH ×2 (09:22→23:08)
[2021-03-02 09:52] LABS: BASO % 0.9 % (0-2.0); EOS % 2.7 % (0-4.5); HEMATOCRIT 37.3 % (35.4-49); HEMOGLOBIN 12.5 GM/dL (11.7-16.9); LYMPH % 34.3 % (8-40); MCH 28.9 pg (25.7-33.7); MCHC 33.4 g/dl (32.0-35.9); MEAN CELL VOLUME 86.3 fl (80-96); MEAN PLT VOLUME 9.8 fl (7.5-11.1); MONO % 10.6 % (3.8-10.2); NEUT % 51.5 % (42.8-82.8); PLATELET COUNT 208 K/MM3 (134-434); RBC 4.32 M/mm3 (4.00-5.60); RDW 13.6 % (11.9-15.9); WHITE BLOOD COUNT 6.2 K/mm3 (4.0-10.0)
[2021-03-02 10:27] LABS: CALCIUM 8.7 mg/dL (8.5-10.1)
[2021-03-02 10:28] LABS: BLOOD UREA NITROGEN 14.7 mg/dL (7-18)
[2021-03-02 10:31] LABS: BILIRUBIN,TOTAL 0.8 mg/dL (0.2-1)
[2021-03-02 10:32] LABS: TOT PROT 6.3 g/dl (6.4-8.2)
[2021-03-02] MEDS: Lacosamide 200 MG/20 ML VIAL IVPB SCH (11:03)
[2021-03-02] MEDS ORDERED: HALOPERIDOL LACTATE 5 MG/ML IV ONE (12:25)
[2021-03-02] MEDS ORDERED: HALOPERIDOL LACTATE 5 MG/ML IV PRN (12:26)
[2021-03-02] MEDS ORDERED: LORazepam 2 MG/ML SDV VIAL IVPUSH ONE (12:38)
[2021-03-02] MEDS ORDERED: LORazepam 2 MG/ML SDV VIAL ONE (12:41)
[2021-03-02] MEDS: HALOPERIDOL LACTATE 5 MG/ML IM PRN (12:51)
[2021-03-02] MEDS ORDERED: PHENYTOIN SODIUM 100 MG/2 ML VIAL IVPB ONE (14:03)
[2021-03-02] MEDS ORDERED: amLODIPine BESYLATE 5 MG TABLET (FP) PO ONE (22:04)
[2021-03-02] MEDS: MEMANTINE HCL 10 MG TABLET (FP) PO SCH (23:08)
[2021-03-03] MEDS: INSULIN SLIDING SCALE (NOVOLOG) 1 VIAL SQ SCH ×4 (07:16→21:05)
[2021-03-03] MEDS: PHENYTOIN NA EXTENDED 100 MG CAPSULE (FP) PO SCH ×3 (07:19→21:05)
[2021-03-03 09:24] LABS: BASO % 1.1 % (0-2.0); HEMOGLOBIN 12.1 GM/dL (11.7-16.9); LYMPH % 30.7 % (8-40); MCHC 33.6 g/dl (32.0-35.9); MEAN CELL VOLUME 86.5 fl (80-96); MEAN PLT VOLUME 9.5 fl (7.5-11.1); NEUT % 54.2 % (42.8-82.8); PLATELET COUNT 207 K/MM3 (134-434); RBC 4.16 M/mm3 (4.00-5.60); RDW 13.6 % (11.9-15.9); WHITE BLOOD COUNT 5.2 K/mm3 (4.0-10.0)
[2021-03-03] MEDS: MEMANTINE HCL 10 MG TABLET (FP) PO SCH ×2 (09:34→21:05)
[2021-03-03] MEDS: TAMSULOSIN HCL 0.4 MG CAP PO SCH (09:34)
[2021-03-03] MEDS: PANTOPRAZOLE 40 MG TABLET PO SCH (09:34)
[2021-03-03] MEDS: LACOSAMIDE 50 MG TABLET PO SCH ×2 (09:34→21:05)
[2021-03-03] MEDS: amLODIPine BESYLATE 5 MG TABLET (FP) PO SCH (09:35)
[2021-03-03 10:19] LABS: ALBUMIN 2.8 g/dl (3.4-5.0); CALCIUM 8.8 mg/dL (8.5-10.1)
[2021-03-03 10:22] LABS: CREATININE 0.8 mg/dL (0.55-1.3)
[2021-03-03 10:23] LABS: BILIRUBIN,TOTAL 0.8 mg/dL (0.2-1); BLOOD UREA NITROGEN 12.9 mg/dL (7-18)
[2021-03-03 10:27] LABS: TOT PROT 5.9 g/dl (6.4-8.2)
[2021-03-03] MEDS: LISINOPRIL 10 MG TABLET PO SCH (17:58)
[2021-03-03] MEDS: HALOPERIDOL LACTATE 5 MG/ML IM PRN (20:42)
[2021-03-03] MEDS: INSULIN (LEVEMIR) 100 UNITS/ML UNITS SQ SCH (21:05)
[2021-03-03] MEDS ORDERED: HALOPERIDOL 2 MG TABLET PO ONE (23:59)
[2021-03-04] MEDS: PHENYTOIN NA EXTENDED 100 MG CAPSULE (FP) PO SCH ×3 (06:08→20:59)
[2021-03-04] MEDS: INSULIN SLIDING SCALE (NOVOLOG) 1 VIAL SQ SCH ×4 (06:12→21:03)
[2021-03-04 09:08] LABS: BASO % 1.1 % (0-2.0); EOS % 2.7 % (0-4.5); HEMATOCRIT 35.9 % (35.4-49); HEMOGLOBIN 11.9 GM/dL (11.7-16.9); LYMPH % 22.1 % (8-40); MCHC 33.2 g/dl (32.0-35.9); MEAN CELL VOLUME 87.2 fl (80-96); MEAN PLT VOLUME 9.9 fl (7.5-11.1); MONO % 10.7 % (3.8-10.2); NEUT % 63.4 % (42.8-82.8); PLATELET COUNT 221 K/MM3 (134-434); RBC 4.11 M/mm3 (4.00-5.60); RDW 13.6 % (11.9-15.9); WHITE BLOOD COUNT 5.9 K/mm3 (4.0-10.0)
[2021-03-04 09:24] LABS: CALCIUM 9.1 mg/dL (8.5-10.1)
[2021-03-04 09:28] LABS: CREATININE 0.8 mg/dL (0.55-1.3)
[2021-03-04 09:29] LABS: BILIRUBIN,TOTAL 0.9 mg/dL (0.2-1); TOT PROT 6.2 g/dl (6.4-8.2)
[2021-03-04] MEDS: PANTOPRAZOLE 40 MG TABLET PO SCH (09:29)
[2021-03-04] MEDS: MEMANTINE HCL 10 MG TABLET (FP) PO SCH ×2 (09:29→20:59)
[2021-03-04] MEDS: TAMSULOSIN HCL 0.4 MG CAP PO SCH (09:29)
[2021-03-04] MEDS: LISINOPRIL 10 MG TABLET PO SCH (09:29)
[2021-03-04] MEDS: LACOSAMIDE 50 MG TABLET PO SCH ×2 (09:29→20:59)
[2021-03-04] MEDS: amLODIPine BESYLATE 5 MG TABLET (FP) PO SCH (09:30)
[2021-03-04] MEDS: HALOPERIDOL LACTATE 5 MG/ML IM PRN ×2 (09:30→19:15)
[2021-03-04] MEDS: INSULIN (LEVEMIR) 100 UNITS/ML UNITS SQ SCH ×2 (09:30→21:04)
[2021-03-05 00:50] VITALS: BP 141/85; PULSE 82; TEMP 98.4
== END 2021-03-05 00:52 | DRG 100 ==
LOC: JER 01:59 → UNDOADMIN 02:14 → J6S 02:14 → JERBED 02:14 → JICU 06:45 → JERBED 06:45 → JICU 03-01 02:30 → J6S 03-01 02:30
PROVIDERS: ADMIT Internal Medicine; ATTEND Student in an Organized Health Care Education/Training Program
DX: G40.909 Epilepsy, unspecified, not intractable, without status epilepticus (principal); S06.350A Traumatic hemorrhage of left cerebrum without loss of consciousness, initial encounter; E11.65 Type 2 diabetes mellitus with hyperglycemia; I10 Essential (primary) hypertension; E78.5 Hyperlipidemia, unspecified; Z91.14 Patient's other noncompliance with medication regimen; F03.90 Unspecified dementia, unspecified severity, without behavioral disturbance, psychotic disturbance, mood disturbance, and anxiety; R31.9 Hematuria, unspecified; R41.82 Altered mental status, unspecified; T14.90XA Injury, unspecified, initial encounter; X58.XXXA Exposure to other specified factors, initial encounter; Y93.89 Activity, other specified; Y92.9 Unspecified place or not applicable; Y99.9 Unspecified external cause status
CPT/HCPCS: 36415; 70450-TC; 71045-TC-FY; 80053; 80185; 80307; 81003; 82010; 82550; 82553; 82803; 82962; 83036; 83605; 83735; 84100; 84443; 84484; 85025; 85610; 85730; 86850; 86900; 86901; 87040; 87086; 93005; 93010; 97116-GP; 97162-GP; 99285-25; C9803; U0003; U0005

== ENCOUNTER 2021-04-27 17:18 | Emergency (ER) | payer BC, OTHER ==
[2021-04-27 18:51] VITALS: BMI 27.1
[2021-04-27 20:46] LABS: BASO % 1.1 % (0-2.0); EOS % 0.3 % (0-4.5); HEMATOCRIT 39.1 % (35.4-49); HEMOGLOBIN 13.1 GM/dL (11.7-16.9); LYMPH % 12.1 % (8-40); MCH 29.7 pg (25.7-33.7); MCHC 33.3 g/dl (32.0-35.9); MEAN CELL VOLUME 88.9 fl (80-96); MEAN PLT VOLUME 8.5 fl (7.5-11.1); MONO % 5.7 % (3.8-10.2); NEUT % 80.8 % (42.8-82.8); PLATELET COUNT 197 10^3/uL (134-434); RDW 13.9 % (11.9-15.9); WHITE BLOOD COUNT 7.7 K/mm3 (4.0-10.0)
[2021-04-27 20:55] LABS: INR 0.96 (0.83-1.09); PROTHROMBIN TIME (PATIENT) 11.6 SEC (9.7-13.0)
[2021-04-27 20:58] LABS: ACTIVATED PTT 29.5 SECONDS (25.2-36.5)
[2021-04-27 21:06] LABS: CHLORIDE 111 mmol/L (98-107); SODIUM 144 mmol/L (136-145)
[2021-04-27 21:10] LABS: CALCIUM 8.8 mg/dL (8.5-10.1)
[2021-04-27 21:11] LABS: ALBUMIN 3.4 g/dl (3.4-5.0); ANION GAP 6 MMOL/L (8-16); BLOOD UREA NITROGEN 13.2 mg/dL (7-18); CO2 27 mmol/L (21-32); GLUCOSE,RANDOM 80 mg/dL (74-106)
[2021-04-27 21:14] LABS: SGOT/AST 19 U/L (15-37); SGPT/ALT 26 U/L (13-61)
[2021-04-27 21:15] LABS: BILIRUBIN,TOTAL 0.2 mg/dL (0.2-1)
[2021-04-27 21:17] LABS: ALK PHOS 72 U/L (45-117)
[2021-04-27] MEDS ORDERED: NICARDIPINE 25 MG in DEXTROSE 5%-WATER - 240 ML IVPB SCH (22:15)
[2021-04-27 23:44] VITALS: BP 144/94; PULSE 83; TEMP 98.7
== END 2021-04-27 23:44 | disposition short-term general hospital (02) ==
LOC: JER 17:18
PROC: 3E033GC Introduction of Other Therapeutic Substance into Peripheral Vein, Percutaneous Approach (ICD-10-PCS; principal; 2021-04-27)
DX: S06.6X0A Traumatic subarachnoid hemorrhage without loss of consciousness, initial encounter (principal); E11.9 Type 2 diabetes mellitus without complications; G40.89 Other seizures; R41.82 Altered mental status, unspecified
CPT/HCPCS: 36415; 70450-TC; 71045-TC-FY; 80053; 80185; 80307; 82962; 83605; 84484; 85025; 85610; 85730; 93005; 93010; 99291; C9803; U0003; U0005

== ENCOUNTER 2021-06-22 21:39 | Inpatient (IN) | payer BC, OTHER ==
[2021-06-22] MEDS ORDERED: NOREPINEPHRINE BITARTRATE 4 MG/4 ML ML IV ONE ×2 (21:56→22:30)
[2021-06-22] MEDS ORDERED: ATROPINE SULFATE 1 MG/10 ML DISP.SYRIN IVPUSH ONE (21:57)
[2021-06-22] MEDS ORDERED: NOREPINEPHRINE BITARTRATE 16,000 MCG in SODIUM CHLORIDE 484 ML IV SCH (22:00)
[2021-06-22 22:03] VITALS: BMI 31.5
[2021-06-22] MEDS ORDERED: SODIUM CHLORIDE 0.9% 500 ML INFUS.BAG IV ONE (22:16)
[2021-06-22] MEDS ORDERED: PIPERACILLIN/TAZOB 3.375 GM 3.375 GM in DEXTROSE 5%-WATER - 50 ML IVPB ONE (22:39)
[2021-06-22 22:42] LABS: VENOUS BASE EXCESS 8.2 mmol/L (-2-2); VENOUS O2 SATURATION 43.3 % (70-80); VENOUS PH 7.232 (7.310-7.410)
[2021-06-22 22:45] LABS: HEMATOCRIT 20.7 % (35.4-49); MCH 29.8 pg (25.7-33.7); MCHC 32.8 g/dl (32.0-35.9); MEAN CELL VOLUME 90.9 fl (80-96); MEAN PLT VOLUME 10.1 fl (7.5-11.1); PLATELET COUNT 284 10^3/uL (134-434); RBC 2.28 M/mm3 (4.00-5.60); RDW 15.6 % (11.9-15.9); WHITE BLOOD COUNT 9.8 K/mm3 (4.0-10.0)
[2021-06-22 22:50] LABS: HEMOGLOBIN 6.8 GM/dL (11.7-16.9)
[2021-06-22 22:51] LABS: INR 1.4 (0.83-1.09); PROTHROMBIN TIME (PATIENT) 16.8 SEC (9.7-13.0)
[2021-06-22 22:53] LABS: VENOUS PCO2 88.2 mmHg (38-52)
[2021-06-22 23:04] LABS: CHLORIDE 102 mmol/L (98-107); SODIUM 143 mmol/L (136-145)
[2021-06-22 23:06] LABS: ALBUMIN 1.6 g/dl (3.4-5.0); ANION GAP 8 MMOL/L (8-16); CALCIUM 9.3 mg/dL (8.5-10.1); CO2 34 mmol/L (21-32)
[2021-06-22 23:07] LABS: BLOOD UREA NITROGEN 69.7 mg/dL (7-18); GLUCOSE,RANDOM 310 mg/dL (74-106); LIPASE 622 U/L (73-393)
[2021-06-22 23:10] LABS: CREATININE 1.6 mg/dL (0.55-1.3); SGOT/AST 122 U/L (15-37); SGPT/ALT 110 U/L (13-61)
[2021-06-22 23:11] LABS: BILIRUBIN,TOTAL 0.3 mg/dL (0.2-1); TOT PROT 5.7 g/dl (6.4-8.2)
[2021-06-22 23:12] LABS: ALK PHOS 176 U/L (45-117)
[2021-06-22 23:15] LABS: N-TERMINAL BNP 1550.8 pg/ml (5-450)
[2021-06-22] MEDS ORDERED: PIPERACILLIN/TAZOB 3.375 GM 3.375 GM/50 ML BAG IVPB ONE (23:20)
[2021-06-22 23:22] LABS: LACTIC ACID 4.2 mmol/L (0.4-2.0)
[2021-06-22] MEDS ORDERED: VASOPRESSIN 40 UNITS/100 ML BAG IV SCH (23:30)
[2021-06-22 23:33] LABS: EPI CELLS 20 /uL (0-25.1); HYALINE CASTS 7 /uL (0-3.1); PH,URINE 7.5 (5.0-8.0); URINE APPEARANCE TURBID; URINE BACTERIA >9,000 /uL (0-1359); URINE BILIRUBIN NEGATIVE (NEGATIVE); URINE COLOR YELLOW; URINE GLUCOSE (UA) 1+ (NEGATIVE); URINE KETONE NEGATIVE (NEGATIVE); URINE LEUK ESTERASE 3+ (NEGATIVE); URINE NITRITE NEGATIVE (NEGATIVE); URINE PROTEIN 3+ (NEGATIVE); URINE RBC 1064 /uL (0-23.9); URINE WBC 3418 /uL (0-25.8)
[2021-06-22 23:38] LABS: URINE AMPHETAMINES NEGATIVE (NEGATIVE); URINE BARBITURATES NEGATIVE (NEGATIVE)
[2021-06-22 23:39] LABS: METHADONE, UR NEGATIVE (NEGATIVE); OPIATES, URI NEGATIVE (NEGATIVE); PHENCYCLIDINE,URINE NEGATIVE (NEGATIVE)
[2021-06-22 23:40] LABS: COCAINE, UR NEGATIVE (NEGATIVE); URINE BENZODIAZEPINES NEGATIVE (NEGATIVE)
[2021-06-22] MEDS ORDERED: morphine SULFATE 4 MG/ML VIAL ONE (23:46)
[2021-06-22] MEDS: SODIUM CHLORIDE 1,000 ML IV SCH (23:58)
[2021-06-22] MEDS ORDERED: HYDROCORTISONE SOD SUCCINATE 100 MG/2 ML VIAL ONE (23:59)
[2021-06-23] MEDS: HYDROCORTISONE SOD SUCCINATE 100 MG/2 ML VIAL IVPUSH SCH ×5 (00:38→23:20)
[2021-06-23] MEDS ORDERED: VANCOMYCIN 1 GM in D5W (PRE-DOCKED) 1,000 MG/250 ML IVPB ONE (01:27)
[2021-06-23 01:42] LABS: ARTERIAL BLD GAS O2 SATURATION 99.3 % (95-98); ARTERIAL BLOOD GAS BASE EXCESS 6.7 mmol/L (-2-2); ARTERIAL BLOOD GAS PO2 208.1 mmHg (80-100); ARTERIAL BLOOD GAS pH 7.324 (7.350-7.450)
[2021-06-23 01:43] LABS: ALLENS TEST POSITIVE; PT'S TEMP N; VENT MODE V-A/C; VENT RATE 18
[2021-06-23 01:55] LABS: ANISOCYTOSIS 1+; MACROCYTOSIS 1+; PLATELET ESTIMATE NORMAL
[2021-06-23] MEDS ORDERED: PIPERACILLIN/TAZOB 3.375 GM 3.375 GM/50 ML BAG IVPB SCH (02:00)
[2021-06-23] MEDS ORDERED: PIPERACILLIN/TAZOBACTAM 3.375 GM VIAL IVPB ONE ×3 (02:04→16:25)
[2021-06-23] MEDS ORDERED: DEXTROSE 5%-WATER - 50 ML IVPB ONE ×3 (02:04→16:25)
[2021-06-23] MEDS ORDERED: LORazepam 2 MG/ML SDV VIAL IVPUSH ONE (02:24)
[2021-06-23] MEDS: PHENYTOIN SODIUM 100 MG/2 ML VIAL IVPB SCH ×2 (02:27→10:27)
[2021-06-23] MEDS ORDERED: LORazepam 2 MG/ML SDV VIAL IVPUSH PRN (02:46)
[2021-06-23] MEDS ORDERED: HEPARIN NA (PORCINE) 5,000 UNITS/ML 1ML VIAL SQ SCH (06:00)
[2021-06-23 06:31] LABS: ARTERIAL BLD GAS O2 SATURATION 95.2 % (95-98); ARTERIAL BLOOD GAS BASE EXCESS 6.6 mmol/L (-2-2); ARTERIAL BLOOD GAS pH 7.412 (7.350-7.450)
[2021-06-23 06:33] LABS: ALLENS TEST POSITIVE
[2021-06-23 06:34] LABS: VENT MODE A/C; VENT RATE 24
[2021-06-23 07:16] LABS: HEMATOCRIT 22.8 % (35.4-49); HEMOGLOBIN 7.4 GM/dL (11.7-16.9); MCH 29.2 pg (25.7-33.7); MCHC 32.6 g/dl (32.0-35.9); MEAN CELL VOLUME 89.7 fl (80-96); MEAN PLT VOLUME 10.2 fl (7.5-11.1); PLATELET COUNT 315 10^3/uL (134-434); RBC 2.55 M/mm3 (4.00-5.60); RDW 15.4 % (11.9-15.9); WHITE BLOOD COUNT 13.5 K/mm3 (4.0-10.0)
[2021-06-23 07:49] LABS: ALBUMIN 1.7 g/dl (3.4-5.0); BLOOD UREA NITROGEN 68.4 mg/dL (7-18); CALCIUM 8.9 mg/dL (8.5-10.1); MAGNESIUM 2.4 mg/dL (1.8-2.4)
[2021-06-23 07:52] LABS: CREATININE 1.3 mg/dL (0.55-1.3); PHOSPHOROUS 4.4 mg/dL (2.5-4.9)
[2021-06-23 07:53] LABS: BILIRUBIN,TOTAL 0.6 mg/dL (0.2-1); TOT PROT 5.8 g/dl (6.4-8.2)
[2021-06-23] MEDS ORDERED: PIPERACILLIN/TAZOB 3.375 GM 3.375 GM in DEXTROSE 5%-WATER - 3.375 GM/50 ML IVPB IVPB SCH (08:00)
[2021-06-23] MEDS: INSULIN SLIDING SCALE (NOVOLOG) 1 VIAL SQ SCH ×3 (08:11→17:02)
[2021-06-23 09:26] LABS: ANISOCYTOSIS 0; MACROCYTOSIS 0; PLATELET ESTIMATE NORMAL
[2021-06-23] MEDS ORDERED: PIPERACILLIN/TAZOB 3.375 GM 3.375 GM in DEXTROSE 5%-WATER - 50 ML IVPB SCH (10:00)
[2021-06-23] MEDS: PANTOPRAZOLE SODIUM 40 MG VIAL IVPUSH SCH (10:34)
[2021-06-23] MEDS: FLUDROCORTISONE ACETATE 0.1 MG TABLET (FP) PO SCH (10:37)
[2021-06-23] MEDS ORDERED: VANCOMYCIN 1 GRAM (PRE-DOCKED) 1,000 MG/250 ML BAG IVPB ONE (14:09)
[2021-06-23] MEDS: HEPARIN NA (PORCINE) 5,000 UNITS/ML 1ML VIAL SQ SCH ×2 (14:47→22:22)
[2021-06-23 15:35] LABS: URINE APPEARANCE Clear; URINE BILIRUBIN Negative (NEGATIVE); URINE COLOR Yellow; URINE GLUCOSE (UA) Negative (NEGATIVE); URINE KETONE Negative (NEGATIVE); URINE LEUK ESTERASE 1+ (NEGATIVE); URINE NITRITE Negative (NEGATIVE); URINE PROTEIN 3+ (NEGATIVE); URINE UROBILINOGEN 4.0 E.U/dl mg/dL (0.2-1.0)
[2021-06-23] MEDS: PHENYTOIN 100 MG/4 ML U-D CUP GT SCH ×2 (16:12→22:22)
[2021-06-23] MEDS: PIPERACILLIN/TAZOB 3.375 GM 3.375 GM in DEXTROSE 5%-WATER - 50 ML IVPB SCH (17:12)
[2021-06-23 18:17] LABS: URINE WBC 20-25 /uL (0-25.8)
[2021-06-23] MEDS ORDERED: NOREPINEPHRINE NS PREMIX 16,000 MCG/500 ML BAG IVPB ONE (21:36)
[2021-06-24] MEDS ORDERED: PIPERACILLIN/TAZOBACTAM 3.375 GM VIAL IVPB ONE ×2 (02:08→09:33)
[2021-06-24] MEDS ORDERED: DEXTROSE 5%-WATER - 50 ML IVPB ONE ×2 (02:09→09:33)
[2021-06-24] MEDS: PIPERACILLIN/TAZOB 3.375 GM 3.375 GM in DEXTROSE 5%-WATER - 50 ML IVPB SCH ×2 (02:49→09:35)
[2021-06-24 06:01] LABS: ARTERIAL BLD GAS O2 SATURATION 97.6 % (95-98); ARTERIAL BLOOD GAS BASE EXCESS 6.8 mmol/L (-2-2); ARTERIAL BLOOD GAS PO2 98.5 mmHg (80-100); ARTERIAL BLOOD GAS pH 7.435 (7.350-7.450)
[2021-06-24 06:07] LABS: ALLENS TEST POSITIVE; PT'S TEMP 96.2; VENT MODE A/C; VENT RATE 18
[2021-06-24] MEDS: HEPARIN NA (PORCINE) 5,000 UNITS/ML 1ML VIAL SQ SCH ×3 (06:07→21:41)
[2021-06-24] MEDS: HYDROCORTISONE SOD SUCCINATE 100 MG/2 ML VIAL IVPUSH SCH (06:07)
[2021-06-24] MEDS: PHENYTOIN 100 MG/4 ML U-D CUP GT SCH ×3 (06:07→21:42)
[2021-06-24] MEDS: SODIUM CHLORIDE 1,000 ML IV SCH (07:00)
[2021-06-24] MEDS: INSULIN SLIDING SCALE (NOVOLOG) 1 VIAL SQ SCH ×3 (07:02→17:21)
[2021-06-24 07:53] LABS: HEMATOCRIT 23.7 % (35.4-49); HEMOGLOBIN 7.8 GM/dL (11.7-16.9); MCH 28.6 pg (25.7-33.7); MCHC 32.9 g/dl (32.0-35.9); MEAN CELL VOLUME 86.8 fl (80-96); MEAN PLT VOLUME 10.1 fl (7.5-11.1); PLATELET COUNT 263 10^3/uL (134-434); RBC 2.73 M/mm3 (4.00-5.60); WHITE BLOOD COUNT 13.2 K/mm3 (4.0-10.0)
[2021-06-24 08:04] LABS: CALCIUM 8.3 mg/dL (8.5-10.1)
[2021-06-24 08:05] LABS: ALBUMIN 1.5 g/dl (3.4-5.0); BLOOD UREA NITROGEN 71.8 mg/dL (7-18); MAGNESIUM 2.3 mg/dL (1.8-2.4)
[2021-06-24 08:08] LABS: CREATININE 1.4 mg/dL (0.55-1.3); PHOSPHOROUS 4.4 mg/dL (2.5-4.9)
[2021-06-24 08:10] LABS: BILIRUBIN,TOTAL 0.4 mg/dL (0.2-1); TOT PROT 5.4 g/dl (6.4-8.2)
[2021-06-24] MEDS: PANTOPRAZOLE SODIUM 40 MG VIAL IVPUSH SCH (09:38)
[2021-06-24] MEDS: FLUDROCORTISONE ACETATE 0.1 MG TABLET (FP) PO SCH (09:38)
[2021-06-24] MEDS ORDERED: LORazepam 2 MG/ML SDV VIAL IVPUSH ONE ×2 (09:54)
[2021-06-24] MEDS ORDERED: MEROPENEM 1 GM VIAL (RESTRICTED TO ID) IVPB ONE ×2 (10:30→16:53)
[2021-06-24] MEDS ORDERED: DEXTROSE 5%-WATER 100 ML IVPB ONE ×2 (10:30→16:53)
[2021-06-24] MEDS: MEROPENEM 1 GM in DEXTROSE 5%-WATER 100 ML IVPB SCH ×2 (10:52→17:11)
[2021-06-24] MEDS ORDERED: PT OWN MED DRAWER 7, Y5N ONE ×2 (13:00→21:39)
[2021-06-24] MEDS: QUEtiapine FUMARATE 25 MG TABLET GT SCH (21:41)
[2021-06-24] MEDS: CARBAMIDE PEROXIDE 6.5% OTIC 15 ML BOTTLE AU SCH (21:52)
[2021-06-25] MEDS ORDERED: DEXTROSE 5%-WATER 100 ML IVPB ONE ×3 (01:29→17:04)
[2021-06-25] MEDS ORDERED: MEROPENEM 1 GM VIAL (RESTRICTED TO ID) IVPB ONE ×3 (01:29→17:04)
[2021-06-25] MEDS: MEROPENEM 1 GM in DEXTROSE 5%-WATER 100 ML IVPB SCH ×3 (01:41→17:54)
[2021-06-25] MEDS: PHENYTOIN 100 MG/4 ML U-D CUP GT SCH ×3 (05:45→23:51)
[2021-06-25 06:33] LABS: HEMATOCRIT 24.9 % (35.4-49); HEMOGLOBIN 8.3 GM/dL (11.7-16.9); MCH 29.2 pg (25.7-33.7); MCHC 33.5 g/dl (32.0-35.9); MEAN CELL VOLUME 87.1 fl (80-96); MEAN PLT VOLUME 10.2 fl (7.5-11.1); PLATELET COUNT 229 10^3/uL (134-434); RBC 2.86 M/mm3 (4.00-5.60); RDW 15.3 % (11.9-15.9); WHITE BLOOD COUNT 11.1 K/mm3 (4.0-10.0)
[2021-06-25] MEDS: INSULIN SLIDING SCALE (NOVOLOG) 1 VIAL SQ SCH ×3 (06:49→16:45)
[2021-06-25] MEDS: HEPARIN NA (PORCINE) 5,000 UNITS/ML 1ML VIAL SQ SCH ×3 (06:49→22:31)
[2021-06-25 07:04] LABS: ALBUMIN 1.3 g/dl (3.4-5.0); BLOOD UREA NITROGEN 63.8 mg/dL (7-18); CALCIUM 7.9 mg/dL (8.5-10.1); MAGNESIUM 2.3 mg/dL (1.8-2.4)
[2021-06-25 07:06] LABS: PHOSPHOROUS 4.5 mg/dL (2.5-4.9)
[2021-06-25 07:08] LABS: BILIRUBIN,TOTAL 0.4 mg/dL (0.2-1); CREATININE 1.5 mg/dL (0.55-1.3)
[2021-06-25 09:30] LABS: ANISOCYTOSIS 0; MACROCYTOSIS 0; PLATELET ESTIMATE NORMAL
[2021-06-25] MEDS: CARBAMIDE PEROXIDE 6.5% OTIC 15 ML BOTTLE AU SCH ×2 (10:02→22:30)
[2021-06-25] MEDS: PANTOPRAZOLE SODIUM 40 MG VIAL IVPUSH SCH (10:02)
[2021-06-25] MEDS ORDERED: FOSPHENYTOIN SODIUM 1,500 MG in SODIUM CHLORIDE 100 ML IVPB ONE ×2 (11:36→13:00)
[2021-06-25] MEDS ORDERED: PHENYTOIN 100 MG/4 ML U-D CUP PO ONE (13:00)
[2021-06-25] MEDS ORDERED: PT OWN MED DRAWER 7, Y5N ONE (14:13)
[2021-06-25] MEDS ORDERED: NOREPINEPHRINE BITARTRATE 16,000 MCG in SODIUM CHLORIDE 484 ML IV SCH (22:19)
[2021-06-25] MEDS ORDERED: LORazepam 2 MG/ML SDV VIAL IVPUSH PRN (22:19)
[2021-06-25] MEDS ORDERED: VASOPRESSIN 40 UNITS/100 ML BAG IV SCH (22:19)
[2021-06-25] MEDS: QUEtiapine FUMARATE 25 MG TABLET GT SCH (22:30)
[2021-06-25] MEDS: SODIUM CHLORIDE 1,000 ML IV SCH (22:35)
[2021-06-26] MEDS ORDERED: MEROPENEM 1 GM VIAL (RESTRICTED TO ID) IVPB ONE ×3 (00:55→17:03)
[2021-06-26] MEDS ORDERED: DEXTROSE 5%-WATER 100 ML IVPB ONE ×3 (00:55→17:03)
[2021-06-26] MEDS: MEROPENEM 1 GM in DEXTROSE 5%-WATER 100 ML IVPB SCH ×3 (01:22→17:20)
[2021-06-26] MEDS: PHENYTOIN 100 MG/4 ML U-D CUP GT SCH ×3 (05:52→23:55)
[2021-06-26] MEDS: HEPARIN NA (PORCINE) 5,000 UNITS/ML 1ML VIAL SQ SCH ×3 (05:52→23:10)
[2021-06-26] MEDS: INSULIN SLIDING SCALE (NOVOLOG) 1 VIAL SQ SCH ×3 (06:00→17:22)
[2021-06-26] MEDS ORDERED: PT OWN MED DRAWER 7, Y5N ONE ×3 (10:11→23:31)
[2021-06-26] MEDS: PANTOPRAZOLE SODIUM 40 MG VIAL IVPUSH SCH (10:32)
[2021-06-26] MEDS: CARBAMIDE PEROXIDE 6.5% OTIC 15 ML BOTTLE AU SCH ×2 (10:33→22:50)
[2021-06-26 10:45] LABS: HEMATOCRIT 24.8 % (35.4-49); HEMOGLOBIN 8.4 GM/dL (11.7-16.9); MCH 29.9 pg (25.7-33.7); MCHC 33.8 g/dl (32.0-35.9); MEAN CELL VOLUME 88.5 fl (80-96); MEAN PLT VOLUME 10.3 fl (7.5-11.1); PLATELET COUNT 205 10^3/uL (134-434); RDW 15.6 % (11.9-15.9); WHITE BLOOD COUNT 8.3 K/mm3 (4.0-10.0)
[2021-06-26 11:06] LABS: ALBUMIN 1.5 g/dl (3.4-5.0); BLOOD UREA NITROGEN 65.8 mg/dL (7-18); CALCIUM 7.8 mg/dL (8.5-10.1); MAGNESIUM 2.3 mg/dL (1.8-2.4)
[2021-06-26 11:09] LABS: CREATININE 1.6 mg/dL (0.55-1.3); PHOSPHOROUS 4.5 mg/dL (2.5-4.9)
[2021-06-26 11:11] LABS: BILIRUBIN,TOTAL 0.4 mg/dL (0.2-1); TOT PROT 5.4 g/dl (6.4-8.2)
[2021-06-26 11:28] LABS: ANISOCYTOSIS 2+; MACROCYTOSIS 0; PLATELET ESTIMATE NORMAL
[2021-06-26] MEDS: QUEtiapine FUMARATE 25 MG TABLET GT SCH (22:51)
[2021-06-27] MEDS: MEROPENEM 1 GM in DEXTROSE 5%-WATER 100 ML IVPB SCH ×3 (01:55→17:59)
[2021-06-27] MEDS ORDERED: PT OWN MED DRAWER 7, Y5N ONE ×2 (05:49→14:33)
[2021-06-27] MEDS: HEPARIN NA (PORCINE) 5,000 UNITS/ML 1ML VIAL SQ SCH ×3 (06:12→21:24)
[2021-06-27] MEDS: INSULIN SLIDING SCALE (NOVOLOG) 1 VIAL SQ SCH ×3 (06:12→17:59)
[2021-06-27] MEDS: PHENYTOIN 100 MG/4 ML U-D CUP GT SCH ×3 (06:15→21:24)
[2021-06-27] MEDS ORDERED: MEROPENEM 1 GM VIAL (RESTRICTED TO ID) IVPB ONE ×2 (10:59→16:46)
[2021-06-27] MEDS ORDERED: DEXTROSE 5%-WATER 100 ML IVPB ONE ×2 (10:59→16:47)
[2021-06-27] MEDS: PANTOPRAZOLE SODIUM 40 MG VIAL IVPUSH SCH (11:56)
[2021-06-27] MEDS: CARBAMIDE PEROXIDE 6.5% OTIC 15 ML BOTTLE AU SCH ×2 (11:57→21:25)
[2021-06-27] MEDS: QUEtiapine FUMARATE 25 MG TABLET GT SCH (21:24)
[2021-06-28] MEDS ORDERED: MEROPENEM 1 GM VIAL (RESTRICTED TO ID) IVPB ONE ×3 (00:57→17:04)
[2021-06-28] MEDS ORDERED: DEXTROSE 5%-WATER 100 ML IVPB ONE ×3 (00:57→17:05)
[2021-06-28] MEDS: MEROPENEM 1 GM in DEXTROSE 5%-WATER 100 ML IVPB SCH ×3 (01:03→17:12)
[2021-06-28] MEDS: HEPARIN NA (PORCINE) 5,000 UNITS/ML 1ML VIAL SQ SCH ×3 (06:01→21:05)
[2021-06-28] MEDS: PHENYTOIN 100 MG/4 ML U-D CUP GT SCH ×3 (06:02→21:05)
[2021-06-28] MEDS: INSULIN SLIDING SCALE (NOVOLOG) 1 VIAL SQ SCH ×3 (06:02→17:13)
[2021-06-28] MEDS: PANTOPRAZOLE SODIUM 40 MG VIAL IVPUSH SCH (10:14)
[2021-06-28] MEDS: CARBAMIDE PEROXIDE 6.5% OTIC 15 ML BOTTLE AU SCH ×2 (10:17→21:04)
[2021-06-28 10:23] LABS: HEMATOCRIT 26.2 % (35.4-49); HEMOGLOBIN 8.7 GM/dL (11.7-16.9); MCH 29.4 pg (25.7-33.7); MCHC 33.2 g/dl (32.0-35.9); MEAN CELL VOLUME 88.4 fl (80-96); MEAN PLT VOLUME 9.4 fl (7.5-11.1); PLATELET COUNT 170 10^3/uL (134-434); RBC 2.97 M/mm3 (4.00-5.60); RDW 15.4 % (11.9-15.9); WHITE BLOOD COUNT 9.4 K/mm3 (4.0-10.0)
[2021-06-28 10:46] LABS: CALCIUM 7.6 mg/dL (8.5-10.1)
[2021-06-28 10:47] LABS: ALBUMIN 1.5 g/dl (3.4-5.0); BLOOD UREA NITROGEN 57.6 mg/dL (7-18)
[2021-06-28 10:50] LABS: CREATININE 1.2 mg/dL (0.55-1.3)
[2021-06-28 10:52] LABS: BILIRUBIN,TOTAL 0.5 mg/dL (0.2-1); TOT PROT 5.4 g/dl (6.4-8.2)
[2021-06-28 12:36] LABS: ANISOCYTOSIS 0; MACROCYTOSIS 0; PLATELET ESTIMATE NORMAL
[2021-06-28] MEDS ORDERED: PT OWN MED DRAWER 7, Y5N ONE ×2 (14:20→20:42)
[2021-06-28] MEDS: QUEtiapine FUMARATE 25 MG TABLET GT SCH (21:05)
[2021-06-29] MEDS ORDERED: DEXTROSE 5%-WATER 100 ML IVPB ONE ×3 (01:30→18:16)
[2021-06-29] MEDS ORDERED: MEROPENEM 1 GM VIAL (RESTRICTED TO ID) IVPB ONE ×3 (01:30→18:15)
[2021-06-29] MEDS: MEROPENEM 1 GM in DEXTROSE 5%-WATER 100 ML IVPB SCH ×3 (01:33→18:44)
[2021-06-29] MEDS: PHENYTOIN 100 MG/4 ML U-D CUP GT SCH ×3 (05:10→21:59)
[2021-06-29] MEDS: HEPARIN NA (PORCINE) 5,000 UNITS/ML 1ML VIAL SQ SCH ×3 (05:10→21:59)
[2021-06-29] MEDS: INSULIN SLIDING SCALE (NOVOLOG) 1 VIAL SQ SCH ×3 (06:31→17:56)
[2021-06-29] MEDS: PANTOPRAZOLE SODIUM 40 MG VIAL IVPUSH SCH (10:25)
[2021-06-29] MEDS ORDERED: FUROSEMIDE 40 MG/4 ML INJECTABLE VIAL IVPUSH ONE (14:15)
[2021-06-29] MEDS ORDERED: ALBUMIN HUMAN 25% 100 ML VIAL IVPB SCH (14:30)
[2021-06-29] MEDS ORDERED: PT OWN MED DRAWER 7, Y5N ONE ×4 (15:06→21:50)
[2021-06-29 20:05] LABS: CALCIUM 7.7 mg/dL (8.5-10.1)
[2021-06-29 20:09] LABS: CREATININE 1.1 mg/dL (0.55-1.3)
[2021-06-29] MEDS: QUEtiapine FUMARATE 25 MG TABLET GT SCH (21:59)
[2021-06-30] MEDS ORDERED: MEROPENEM 1 GM VIAL (RESTRICTED TO ID) IVPB ONE ×3 (01:04→16:56)
[2021-06-30] MEDS ORDERED: DEXTROSE 5%-WATER 100 ML IVPB ONE ×3 (01:04→16:56)
[2021-06-30] MEDS: MEROPENEM 1 GM in DEXTROSE 5%-WATER 100 ML IVPB SCH ×3 (01:07→17:17)
[2021-06-30] MEDS ORDERED: PT OWN MED DRAWER 7, Y5N ONE ×3 (05:16→22:00)
[2021-06-30] MEDS: PHENYTOIN 100 MG/4 ML U-D CUP GT SCH ×3 (05:23→22:10)
[2021-06-30] MEDS: HEPARIN NA (PORCINE) 5,000 UNITS/ML 1ML VIAL SQ SCH ×3 (05:24→22:10)
[2021-06-30] MEDS: INSULIN SLIDING SCALE (NOVOLOG) 1 VIAL SQ SCH ×3 (06:00→17:26)
[2021-06-30] MEDS: PANTOPRAZOLE SODIUM 40 MG VIAL IVPUSH SCH (10:39)
[2021-06-30 11:24] LABS: HEMATOCRIT 25.1 % (35.4-49); HEMOGLOBIN 8.3 GM/dL (11.7-16.9); MCH 29.4 pg (25.7-33.7); MEAN CELL VOLUME 89.3 fl (80-96); MEAN PLT VOLUME 10.5 fl (7.5-11.1); PLATELET COUNT 172 10^3/uL (134-434); RBC 2.81 M/mm3 (4.00-5.60); RDW 15.6 % (11.9-15.9); WHITE BLOOD COUNT 11.2 K/mm3 (4.0-10.0)
[2021-06-30 11:46] LABS: BLOOD UREA NITROGEN 41.4 mg/dL (7-18)
[2021-06-30 11:50] LABS: CALCIUM 7.5 mg/dL (8.5-10.1)
[2021-06-30 11:52] LABS: ALBUMIN 1.4 g/dl (3.4-5.0)
[2021-06-30 11:53] LABS: CREATININE 1.1 mg/dL (0.55-1.3)
[2021-06-30 11:54] LABS: BILIRUBIN,TOTAL 0.3 mg/dL (0.2-1); TOT PROT 5.2 g/dl (6.4-8.2)
[2021-06-30 12:59] LABS: ANISOCYTOSIS 0; HELMET CELLS 0; HOWELL-JOLLY BODIES 0; MACROCYTOSIS 0; OVALOCYTE 0; PLATELET ESTIMATE NORMAL; ROULEAU 0; SICKELED CELLS 0; TARGET CELLS 0; TEAR DROP CELLS 0; TOXIC GRANULATION 0
[2021-06-30] MEDS ORDERED: FUROSEMIDE 40 MG/5 ML UNIT-DOSE CUP PO ONE (14:30)
[2021-06-30] MEDS: QUEtiapine FUMARATE 25 MG TABLET GT SCH (22:09)
[2021-07-01] MEDS ORDERED: DEXTROSE 5%-WATER 100 ML IVPB ONE ×3 (01:40→17:41)
[2021-07-01] MEDS ORDERED: MEROPENEM 1 GM VIAL (RESTRICTED TO ID) IVPB ONE ×3 (01:40→17:41)
[2021-07-01] MEDS: MEROPENEM 1 GM in DEXTROSE 5%-WATER 100 ML IVPB SCH ×3 (01:50→18:27)
[2021-07-01] MEDS ORDERED: PT OWN MED DRAWER 7, Y5N ONE ×4 (05:23→20:59)
[2021-07-01] MEDS: HEPARIN NA (PORCINE) 5,000 UNITS/ML 1ML VIAL SQ SCH ×3 (05:29→21:26)
[2021-07-01] MEDS: PHENYTOIN 100 MG/4 ML U-D CUP GT SCH ×3 (05:29→21:25)
[2021-07-01] MEDS: INSULIN SLIDING SCALE (NOVOLOG) 1 VIAL SQ SCH ×3 (06:00→18:29)
[2021-07-01] MEDS: BACITRACIN 15 GM TUBE TOPICAL OINTMENT TP SCH (11:46)
[2021-07-01] MEDS: PANTOPRAZOLE SODIUM 40 MG VIAL IVPUSH SCH (11:46)
[2021-07-01] MEDS: QUEtiapine FUMARATE 25 MG TABLET GT SCH (21:25)
[2021-07-02] MEDS ORDERED: DEXTROSE 5%-WATER 100 ML IVPB ONE ×2 (01:07→09:56)
[2021-07-02] MEDS ORDERED: MEROPENEM 1 GM VIAL (RESTRICTED TO ID) IVPB ONE ×2 (01:07→09:56)
[2021-07-02] MEDS: MEROPENEM 1 GM in DEXTROSE 5%-WATER 100 ML IVPB SCH ×2 (01:18→10:07)
[2021-07-02] MEDS: HEPARIN NA (PORCINE) 5,000 UNITS/ML 1ML VIAL SQ SCH (05:10)
[2021-07-02] MEDS: PHENYTOIN 100 MG/4 ML U-D CUP GT SCH (05:11)
[2021-07-02] MEDS: INSULIN SLIDING SCALE (NOVOLOG) 1 VIAL SQ SCH ×2 (06:20→12:09)
[2021-07-02] MEDS: BACITRACIN 15 GM TUBE TOPICAL OINTMENT TP SCH (10:07)
[2021-07-02] MEDS: PANTOPRAZOLE SODIUM 40 MG VIAL IVPUSH SCH (10:07)
[2021-07-02 10:52] VITALS: PULSE 74
[2021-07-02] MEDS ORDERED: LIDOCAINE HCL/PF 1% SDV 5ML VIAL ONE (13:21)
[2021-07-02 14:22] VITALS: BP 132/64; TEMP 98.8
== END 2021-07-02 14:20 | DRG 870 ==
LOC: JER 21:39 → JICU 06-23 00:09 → J5S 06-25 21:44
PROVIDERS: ADMIT Internal Medicine Pulmonary Disease; ATTEND Family Medicine
PROC: 5A1955Z Respiratory Ventilation, Greater than 96 Consecutive Hours (ICD-10-PCS; principal; 2021-06-23)
PROC: 05HM33Z Insertion of Infusion Device into Right Internal Jugular Vein, Percutaneous Approach (ICD-10-PCS; 2021-06-24)
PROC: B543ZZA Ultrasonography of Right Jugular Veins, Guidance (ICD-10-PCS; 2021-06-24)
PROC: 30233N1 Transfusion of Nonautologous Red Blood Cells into Peripheral Vein, Percutaneous Approach (ICD-10-PCS; 2021-06-24)
DX: A41.9 Sepsis, unspecified organism (principal); R65.21 Severe sepsis with septic shock; J18.9 Pneumonia, unspecified organism; I46.9 Cardiac arrest, cause unspecified; N17.0 Acute kidney failure with tubular necrosis; N17.9 Acute kidney failure, unspecified; N39.0 Urinary tract infection, site not specified; J96.10 Chronic respiratory failure, unspecified whether with hypoxia or hypercapnia; E87.2 Acidosis; J98.11 Atelectasis; E46 Unspecified protein-calorie malnutrition; Z99.11 Dependence on respirator [ventilator] status; Z16.12 Extended spectrum beta lactamase (ESBL) resistance; Z68.31 Body mass index [BMI] 31.0-31.9, adult; I95.9 Hypotension, unspecified; D64.9 Anemia, unspecified; D72.829 Elevated white blood cell count, unspecified; E78.5 Hyperlipidemia, unspecified; Z93.0 Tracheostomy status; R74.01 Elevation of levels of liver transaminase levels
CPT/HCPCS: 36415; 36430; 36600; 70450-TC; 71045-TC-FY; 71275-TC; 80048; 80053; 80185; 80307; 81003; 82272; 82436; 82570; 82803; 82962; 83036; 83605; 83690; 83735; 83880; 84100; 84133; 84300; 84484; 85025; 85027; 85379; 85610; 85730; 86140; 86850; 86900; 86901; 86922; 87040; 87070; 87086; 87186; 87205; 93005; 93010; 93306-TC; 93971; 94002; 97161-GP; 99285-25; C9803; J1644; J3490; P9058; U0003; U0005

== ENCOUNTER 2021-08-25 13:42 | Inpatient (IN) | payer BC, OTHER ==
[2021-08-25] MEDS ORDERED: SODIUM CHLORIDE 0.9% 500 ML INFUS.BAG IV ONE (14:28)
[2021-08-25 15:07] LABS: BASO % 0.5 % (0-2.0); EOS % 3.3 % (0-4.5); HEMATOCRIT 32.5 % (35.4-49); HEMOGLOBIN 10.7 GM/dL (11.7-16.9); MCH 28.6 pg (25.7-33.7); MEAN CELL VOLUME 86.6 fl (80-96); MEAN PLT VOLUME 10.2 fl (7.5-11.1); MONO % 5.4 % (3.8-10.2); NEUT % 75.8 % (42.8-82.8); PLATELET COUNT 237 10^3/uL (134-434); RBC 3.76 M/mm3 (4.00-5.60); RDW 17.2 % (11.9-15.9); WHITE BLOOD COUNT 6.5 K/mm3 (4.0-10.0)
[2021-08-25 15:14] LABS: INR 1.08 (0.83-1.09); PROTHROMBIN TIME (PATIENT) 12.6 SEC (9.7-13.0)
[2021-08-25 15:24] LABS: EPI CELLS 6 /uL (0-25.1); HYALINE CASTS 1 /uL (0-3.1); PH,URINE >= 9.0 (5.0-8.0); URINE APPEARANCE TURBID; URINE BACTERIA >9,000 /uL (0-1359); URINE BILIRUBIN NEGATIVE (NEGATIVE); URINE COLOR YELLOW; URINE GLUCOSE (UA) NEGATIVE (NEGATIVE); URINE KETONE NEGATIVE (NEGATIVE); URINE LEUK ESTERASE 3+ (NEGATIVE); URINE NITRITE POSITIVE (NEGATIVE); URINE PROTEIN 2+ (NEGATIVE); URINE RBC 49 /uL (0-23.9); URINE UROBILINOGEN 0.2 mg/dL (0.2-1.0); URINE WBC 1381 /uL (0-25.8)
[2021-08-25 15:26] LABS: VENOUS BASE EXCESS 7.2 mmol/L (-2-2); VENOUS O2 SATURATION 60.6 % (70-80); VENOUS PH 7.337 (7.310-7.410)
[2021-08-25 15:37] LABS: COCAINE, UR NEGATIVE (NEGATIVE); METHADONE, UR NEGATIVE (NEGATIVE); OPIATES, URI NEGATIVE (NEGATIVE); URINE BARBITURATES NEGATIVE (NEGATIVE); URINE BENZODIAZEPINES NEGATIVE (NEGATIVE)
[2021-08-25 15:38] LABS: PHENCYCLIDINE,URINE NEGATIVE (NEGATIVE); URINE AMPHETAMINES NEGATIVE (NEGATIVE)
[2021-08-25 15:44] LABS: CHLORIDE 100 mmol/L (98-107); SODIUM 140 mmol/L (136-145)
[2021-08-25 15:45] LABS: CALCIUM 9.1 mg/dL (8.5-10.1)
[2021-08-25 15:46] LABS: ALBUMIN 2.9 g/dl (3.4-5.0); ANION GAP 5 MMOL/L (8-16); CO2 35 mmol/L (21-32); GLUCOSE,RANDOM 145 mg/dL (74-106); MAGNESIUM 3.7 mg/dL (1.8-2.4)
[2021-08-25 15:49] LABS: CREATININE 2.3 mg/dL (0.55-1.3); SGOT/AST 36 U/L (15-37); SGPT/ALT 41 U/L (13-61)
[2021-08-25 15:50] LABS: BILIRUBIN,TOTAL 0.2 mg/dL (0.2-1); PHOSPHOROUS 5.7 mg/dL (2.5-4.9); TOT PROT 8.1 g/dl (6.4-8.2)
[2021-08-25 15:52] LABS: ALK PHOS 158 U/L (45-117)
[2021-08-25 15:55] LABS: BLOOD UREA NITROGEN 115.4 mg/dL (7-18)
[2021-08-25] MEDS ORDERED: VANCOMYCIN 1 GM in D5W (PRE-DOCKED) 1,000 MG/250 ML IVPB ONE (16:05)
[2021-08-25] MEDS ORDERED: PIPERACILLIN/TAZOB 2.25 GM 2.25 GM in DEXTROSE 5%-WATER - 50 ML IVPB ONE (16:05)
[2021-08-25] MEDS ORDERED: PIPERACILLIN/TAZOB 2.25 GM 2.25 GM/50 ML BAG IVPB ONE (16:22)
[2021-08-25] MEDS ORDERED: VANCOMYCIN 1 GRAM (PRE-DOCKED) 1,000 MG/250 ML BAG IVPB ONE (16:22)
[2021-08-25] MEDS ORDERED: PHENYTOIN SODIUM 100 MG/2 ML VIAL IVPB SCH (18:00)
[2021-08-25] MEDS ORDERED: LACTATED RINGERS SOLUTION 1,000 ML/1,000 ML INFUS.BAG IV SCH (18:15)
[2021-08-25] MEDS ORDERED: SODIUM CHLORIDE IVPB SCH (19:00)
[2021-08-25] MEDS ORDERED: PHENYTOIN SODIUM IVPB SCH (19:00)
[2021-08-25] MEDS ORDERED: MEROPENEM 1 GM in DEXTROSE 5%-WATER 100 ML IVPB SCH (20:00)
[2021-08-25] MEDS ORDERED: MEROPENEM 1 GM VIAL (RESTRICTED TO ID) IVPB ONE (20:19)
[2021-08-25] MEDS ORDERED: HEPARIN NA (PORCINE) 5,000 UNITS/ML 1ML VIAL SQ SCH (22:00)
[2021-08-25] MEDS ORDERED: CARVEDILOL 6.25 MG TABLET (FP) GT SCH (22:00)
[2021-08-25] MEDS ORDERED: SODIUM CHLORIDE 2,177 ML IV ONE (23:53)
[2021-08-26] MEDS ORDERED: HEPARIN NA (PORCINE) 5,000 UNITS/ML 1ML VIAL ONE (00:04)
[2021-08-26] MEDS ORDERED: NOREPINEPHRINE NS PREMIX 16,000 MCG/500 ML BAG IVPB SCH (01:15)
[2021-08-26] MEDS: NOREPINEPHRINE NS PREMIX 16,000 MCG/500 ML BAG IVPB SCH (04:44)
[2021-08-26 05:15] VITALS: BMI 20.9
[2021-08-26] MEDS: HEPARIN NA (PORCINE) 5,000 UNITS/ML 1ML VIAL SQ SCH ×3 (06:24→22:38)
[2021-08-26] MEDS ORDERED: DEXTROSE 5%-WATER 100 ML IVPB ONE ×2 (07:48→22:36)
[2021-08-26] MEDS ORDERED: MEROPENEM 1 GM VIAL (RESTRICTED TO ID) IVPB ONE ×2 (07:48→22:36)
[2021-08-26] MEDS: LACTATED RINGERS SOLUTION 1,000 ML/1,000 ML INFUS.BAG IV SCH (07:54)
[2021-08-26] MEDS ORDERED: MEROPENEM 1 GM in DEXTROSE 5%-WATER 100 ML IVPB SCH (08:00)
[2021-08-26 09:38] LABS: MEAN CELL VOLUME 87.4 fl (80-96); MEAN PLT VOLUME 10.4 fl (7.5-11.1); PLATELET COUNT 179 10^3/uL (134-434); RDW 16.9 % (11.9-15.9); WHITE BLOOD COUNT 21.9 K/mm3 (4.0-10.0)
[2021-08-26] MEDS ORDERED: TAMSULOSIN HCL 0.4 MG CAP PO SCH (10:00)
[2021-08-26] MEDS ORDERED: CARVEDILOL 6.25 MG TABLET (FP) GT SCH (10:00)
[2021-08-26] MEDS ORDERED: SODIUM CHLORIDE IVPB SCH (10:00)
[2021-08-26] MEDS ORDERED: PHENYTOIN SODIUM IVPB SCH (10:00)
[2021-08-26] MEDS ORDERED: DOXAZOSIN MESYLATE 1 MG TABLET GT SCH ×2 (10:00)
[2021-08-26 10:08] LABS: CHLORIDE 104 mmol/L (98-107); SODIUM 143 mmol/L (136-145)
[2021-08-26 10:10] LABS: CALCIUM 7.8 mg/dL (8.5-10.1)
[2021-08-26 10:11] LABS: ANION GAP 10 MMOL/L (8-16); CO2 29 mmol/L (21-32); GLUCOSE,RANDOM 182 mg/dL (74-106)
[2021-08-26 10:13] LABS: ANISOCYTOSIS 0; CREATININE 2.6 mg/dL (0.55-1.3); HELMET CELLS 0; HOWELL-JOLLY BODIES 0; IRON SERUM 39 ug/dL (50-175); MACROCYTOSIS 0; OVALOCYTE 0; PLATELET ESTIMATE NORMAL; ROULEAU 0; SGPT/ALT 32 U/L (13-61); SICKELED CELLS 0; TARGET CELLS 0; TEAR DROP CELLS 0; TOTAL IRON BINDING CAPACITY 161 ug/dL (250-450); TOXIC GRANULATION 0
[2021-08-26 10:14] LABS: SGOT/AST 28 U/L (15-37)
[2021-08-26 10:16] LABS: BILIRUBIN,TOTAL 0.2 mg/dL (0.2-1); TOT PROT 6.6 g/dl (6.4-8.2)
[2021-08-26 10:17] LABS: ALK PHOS 140 U/L (45-117)
[2021-08-26 10:19] LABS: ALBUMIN 2.2 g/dl (3.4-5.0); BLOOD UREA NITROGEN 111.4 mg/dL (7-18)
[2021-08-26] MEDS: MUPIROCIN 2% TOPICAL OINTMENT FOR DECOLONIZATION NS SCH ×2 (12:09→22:38)
[2021-08-26 16:43] LABS: EPI CELLS >36 /uL (0-25.1); HYALINE CASTS 2 /uL (0-3.1); URINE APPEARANCE CLOUDY; URINE BACTERIA 22 /uL (0-1359); URINE BILIRUBIN NEGATIVE (NEGATIVE); URINE COLOR YELLOW; URINE GLUCOSE (UA) NEGATIVE (NEGATIVE); URINE KETONE TRACE (NEGATIVE); URINE LEUK ESTERASE 2+ (NEGATIVE); URINE NITRITE NEGATIVE (NEGATIVE); URINE PROTEIN 2+ (NEGATIVE); URINE RBC 27 /uL (0-23.9); URINE UROBILINOGEN 0.2 mg/dL (0.2-1.0); URINE WBC 327 /uL (0-25.8)
[2021-08-26] MEDS: CHLORHEXIDINE GLUCONATE 4% CLEANSER FOR DECOLONIZATION TP SCH (22:38)
[2021-08-26] MEDS: MEROPENEM 1 GM in DEXTROSE 5%-WATER 100 ML IVPB SCH (22:38)
[2021-08-27] MEDS ORDERED: VANCOMYCIN 1 GRAM (PRE-DOCKED) 1,000 MG/250 ML BAG IVPB ONE (04:59)
[2021-08-27] MEDS: HEPARIN NA (PORCINE) 5,000 UNITS/ML 1ML VIAL SQ SCH ×3 (06:53→22:45)
[2021-08-27 07:07] LABS: BASO % 0.3 % (0-2.0); EOS % 0.5 % (0-4.5); HEMATOCRIT 25.2 % (35.4-49); HEMOGLOBIN 8.3 GM/dL (11.7-16.9); LYMPH % 13.9 % (8-40); MCH 28.4 pg (25.7-33.7); MCHC 32.9 g/dl (32.0-35.9); MEAN CELL VOLUME 86.4 fl (80-96); MEAN PLT VOLUME 9.2 fl (7.5-11.1); MONO % 8.5 % (3.8-10.2); NEUT % 76.8 % (42.8-82.8); PLATELET COUNT 121 10^3/uL (134-434); RBC 2.92 M/mm3 (4.00-5.60); RDW 16.9 % (11.9-15.9); WHITE BLOOD COUNT 10.1 K/mm3 (4.0-10.0)
[2021-08-27] MEDS: LACTATED RINGERS SOLUTION 1,000 ML/1,000 ML INFUS.BAG IV SCH ×3 (08:00→18:25)
[2021-08-27 08:03] LABS: BILIRUBIN,TOTAL 0.2 mg/dL (0.2-1); BLOOD UREA NITROGEN 85.5 mg/dL (7-18); MAGNESIUM 2.8 mg/dL (1.8-2.4); PHOSPHOROUS 3.4 mg/dL (2.5-4.9); TOT PROT 6.4 g/dl (6.4-8.2)
[2021-08-27] MEDS: NOREPINEPHRINE NS PREMIX 16,000 MCG/500 ML BAG IVPB SCH ×2 (09:15→18:24)
[2021-08-27] MEDS ORDERED: MEROPENEM 1 GM VIAL (RESTRICTED TO ID) IVPB ONE ×2 (10:27→22:41)
[2021-08-27] MEDS ORDERED: DEXTROSE 5%-WATER 100 ML IVPB ONE ×2 (10:28→22:41)
[2021-08-27] MEDS: MEROPENEM 1 GM in DEXTROSE 5%-WATER 100 ML IVPB SCH ×2 (10:29→22:45)
[2021-08-27] MEDS: MUPIROCIN 2% TOPICAL OINTMENT FOR DECOLONIZATION NS SCH ×2 (10:32→22:45)
[2021-08-27 11:48] LABS: ARTERIAL BLOOD GAS BASE EXCESS 5.2 mmol/L (-2-2); ARTERIAL BLOOD GAS PO2 93.2 mmHg (80-100); ARTERIAL BLOOD GAS pH 7.396 (7.350-7.450)
[2021-08-27 12:16] LABS: ALLENS TEST POSITIVE
[2021-08-27] MEDS ORDERED: PANTOPRAZOLE SODIUM 40 MG VIAL IVPUSH ONE (17:30)
[2021-08-27 21:42] LABS: BASO % 0.4 % (0-2.0); EOS % 1.1 % (0-4.5); HEMATOCRIT 23.7 % (35.4-49); HEMOGLOBIN 7.7 GM/dL (11.7-16.9); LYMPH % 21.3 % (8-40); MCH 28.3 pg (25.7-33.7); MCHC 32.6 g/dl (32.0-35.9); MEAN CELL VOLUME 86.9 fl (80-96); MEAN PLT VOLUME 9.3 fl (7.5-11.1); MONO % 12.5 % (3.8-10.2); NEUT % 64.7 % (42.8-82.8); PLATELET COUNT 111 10^3/uL (134-434); RBC 2.73 M/mm3 (4.00-5.60); WHITE BLOOD COUNT 9.3 K/mm3 (4.0-10.0)
[2021-08-27 22:22] LABS: ANISOCYTOSIS 2+; MACROCYTOSIS 0; PLATELET ESTIMATE DECREASED
[2021-08-27] MEDS: levETIRAcetam 500 MG/5 ML INJECTION VIAL IVPB SCH (22:45)
[2021-08-27] MEDS: CHLORHEXIDINE GLUCONATE 4% CLEANSER FOR DECOLONIZATION TP SCH (22:45)
[2021-08-28 07:18] LABS: HEMATOCRIT 22.4 % (35.4-49); HEMOGLOBIN 7.5 GM/dL (11.7-16.9); MCH 29.5 pg (25.7-33.7); MCHC 33.6 g/dl (32.0-35.9); MEAN CELL VOLUME 87.7 fl (80-96); MEAN PLT VOLUME 9.7 fl (7.5-11.1); PLATELET COUNT 110 10^3/uL (134-434); RBC 2.55 M/mm3 (4.00-5.60); RDW 17.3 % (11.9-15.9)
[2021-08-28] MEDS ORDERED: LACTATED RINGERS SOLUTION 1,000 ML/1,000 ML INFUS.BAG IV STA (07:23)
[2021-08-28] MEDS: NOREPINEPHRINE NS PREMIX 16,000 MCG/500 ML BAG IVPB SCH (08:19)
[2021-08-28] MEDS: LACTATED RINGERS SOLUTION 1,000 ML/1,000 ML INFUS.BAG IV SCH (08:25)
[2021-08-28 08:30] LABS: BLOOD UREA NITROGEN 75.1 mg/dL (7-18); CALCIUM 8.3 mg/dL (8.5-10.1); CREATININE 1.6 mg/dL (0.55-1.3); MAGNESIUM 2.4 mg/dL (1.8-2.4); PHOSPHOROUS 2.9 mg/dL (2.5-4.9)
[2021-08-28 08:31] LABS: BILIRUBIN,TOTAL 0.2 mg/dL (0.2-1); TOT PROT 5.9 g/dl (6.4-8.2)
[2021-08-28 08:41] LABS: ANISOCYTOSIS 0; HELMET CELLS 0; HOWELL-JOLLY BODIES 0; MACROCYTOSIS 0; OVALOCYTE 0; PLATELET ESTIMATE DECREASED; ROULEAU 0; SICKELED CELLS 0; TARGET CELLS 0; TEAR DROP CELLS 0; TOXIC GRANULATION 0
[2021-08-28] MEDS ORDERED: LACTATED RINGERS SOLUTION 1,000 ML/1,000 ML INFUS.BAG IV SCH (08:48)
[2021-08-28] MEDS ORDERED: KCL 10 MEQ IVPB 10 MEQ/100 ML INFUS.BAG IVPB SCH (09:15)
[2021-08-28] MEDS ORDERED: DEXTROSE 5%-WATER 100 ML IVPB ONE (09:23)
[2021-08-28] MEDS ORDERED: MEROPENEM 1 GM VIAL (RESTRICTED TO ID) IVPB ONE (09:23)
[2021-08-28] MEDS: MEROPENEM 1 GM in DEXTROSE 5%-WATER 100 ML IVPB SCH (10:04)
[2021-08-28] MEDS: PANTOPRAZOLE SODIUM 40 MG VIAL IVPUSH SCH ×2 (10:05→22:00)
[2021-08-28] MEDS: levETIRAcetam 500 MG/5 ML INJECTION VIAL IVPB SCH ×2 (10:05→22:00)
[2021-08-28] MEDS: MUPIROCIN 2% TOPICAL OINTMENT FOR DECOLONIZATION NS SCH ×2 (10:06→22:00)
[2021-08-28] MEDS ORDERED: VANCOMYCIN 1 GRAM (PRE-DOCKED) 1,000 MG/250 ML BAG IVPB ONE (10:35)
[2021-08-28] MEDS ORDERED: SODIUM CHLORIDE 0.45% 1,000 ML IV SCH (11:30)
[2021-08-28] MEDS: MIDODRINE HCL 5 MG TABLET PO SCH ×2 (16:36→22:00)
[2021-08-28] MEDS: POTASSIUM CHLORIDE 20 MEQ in DEXTROSE 5%-WATER - 1,000 ML IV SCH (18:22)
[2021-08-28] MEDS ORDERED: PIPERACILLIN/TAZOB 3.375 GM 3.375 GM in DEXTROSE 5%-WATER - 50 ML IVPB SCH (18:45)
[2021-08-28] MEDS: PIPERACILLIN/TAZOB 3.375 GM 3.375 GM in DEXTROSE 5%-WATER - 50 ML IVPB SCH ×2 (21:30)
[2021-08-28] MEDS: CHLORHEXIDINE GLUCONATE 4% CLEANSER FOR DECOLONIZATION TP SCH (22:00)
[2021-08-28] MEDS: POLYETHYLENE GLYCOL (HEALTHYLAX) 3350 17 GM PACKET GT SCH (22:00)
[2021-08-28] MEDS ORDERED: DEXTROSE 5%-WATER - 50 ML IVPB ONE ×2 (23:44)
[2021-08-28] MEDS ORDERED: PIPERACILLIN/TAZOBACTAM 3.375 GM VIAL IVPB ONE ×2 (23:44)
[2021-08-29] MEDS: POTASSIUM CHLORIDE 20 MEQ in DEXTROSE 5%-WATER - 1,000 ML IV SCH ×3 (03:31→21:01)
[2021-08-29] MEDS ORDERED: PIPERACILLIN/TAZOBACTAM 3.375 GM VIAL IVPB ONE ×3 (03:32→17:58)
[2021-08-29] MEDS ORDERED: DEXTROSE 5%-WATER - 50 ML IVPB ONE ×3 (03:33→17:58)
[2021-08-29] MEDS: PIPERACILLIN/TAZOB 3.375 GM 3.375 GM in DEXTROSE 5%-WATER - 50 ML IVPB SCH ×3 (03:34→18:03)
[2021-08-29] MEDS ORDERED: QUEtiapine FUMARATE 25 MG TABLET PO ONE (06:30)
[2021-08-29] MEDS: NOREPINEPHRINE NS PREMIX 16,000 MCG/500 ML BAG IVPB SCH (06:31)
[2021-08-29 07:02] LABS: BASO % 0.4 % (0-2.0); EOS % 3.2 % (0-4.5); HEMATOCRIT 22.4 % (35.4-49); HEMOGLOBIN 7.2 GM/dL (11.7-16.9); LYMPH % 33.1 % (8-40); MCH 28.5 pg (25.7-33.7); MCHC 32.3 g/dl (32.0-35.9); MEAN CELL VOLUME 88.1 fl (80-96); MEAN PLT VOLUME 9.5 fl (7.5-11.1); MONO % 8.9 % (3.8-10.2); NEUT % 54.4 % (42.8-82.8); PLATELET COUNT 92 10^3/uL (134-434); RBC 2.54 M/mm3 (4.00-5.60); RDW 16.9 % (11.9-15.9)
[2021-08-29 07:06] LABS: ALBUMIN 2.2 g/dl (3.4-5.0); CALCIUM 8.4 mg/dL (8.5-10.1)
[2021-08-29 07:09] LABS: CREATININE 1.1 mg/dL (0.55-1.3)
[2021-08-29 07:11] LABS: BILIRUBIN,TOTAL 0.2 mg/dL (0.2-1); TOT PROT 6.2 g/dl (6.4-8.2)
[2021-08-29] MEDS: MIDODRINE HCL 5 MG TABLET PO SCH ×3 (07:33→21:00)
[2021-08-29 08:04] LABS: BLOOD UREA NITROGEN 43.1 mg/dL (7-18)
[2021-08-29] MEDS: POLYETHYLENE GLYCOL (HEALTHYLAX) 3350 17 GM PACKET GT SCH ×2 (09:38→21:00)
[2021-08-29] MEDS: levETIRAcetam 500 MG/5 ML INJECTION VIAL IVPB SCH ×2 (09:38→21:01)
[2021-08-29] MEDS: PANTOPRAZOLE SODIUM 40 MG VIAL IVPUSH SCH ×2 (09:38→21:00)
[2021-08-29] MEDS: MUPIROCIN 2% TOPICAL OINTMENT FOR DECOLONIZATION NS SCH ×2 (09:39→21:01)
[2021-08-29] MEDS ORDERED: VANCOMYCIN 1 GRAM (PRE-DOCKED) 1,000 MG/250 ML BAG IVPB ONE (11:58)
[2021-08-29] MEDS: ALBUMIN HUMAN 25% 12.5 GM/50 ML VIAL IVPB SCH ×2 (12:18→13:13)
[2021-08-29] MEDS ORDERED: PT OWN MED DRAWER 7, Y5N ONE (20:55)
[2021-08-29] MEDS: CHLORHEXIDINE GLUCONATE 4% CLEANSER FOR DECOLONIZATION TP SCH (21:01)
[2021-08-29] MEDS: QUEtiapine FUMARATE 25 MG TABLET PO SCH (21:01)
[2021-08-29 21:55] LABS: HEMATOCRIT 21.4 % (35.4-49); MCH 28.5 pg (25.7-33.7); MCHC 32.8 g/dl (32.0-35.9); MEAN CELL VOLUME 86.9 fl (80-96); MEAN PLT VOLUME 9.2 fl (7.5-11.1); RBC 2.46 M/mm3 (4.00-5.60); RDW 16.9 % (11.9-15.9); WHITE BLOOD COUNT 7.9 K/mm3 (4.0-10.0)
[2021-08-30] MEDS ORDERED: DEXTROSE 5%-WATER - 50 ML IVPB ONE ×4 (01:12→23:40)
[2021-08-30] MEDS ORDERED: PIPERACILLIN/TAZOBACTAM 3.375 GM VIAL IVPB ONE ×4 (01:12→23:40)
[2021-08-30] MEDS: PIPERACILLIN/TAZOB 3.375 GM 3.375 GM in DEXTROSE 5%-WATER - 50 ML IVPB SCH ×3 (01:39→18:02)
[2021-08-30 04:48] LABS: HEMATOCRIT 23.1 % (35.4-49); HEMOGLOBIN 7.7 GM/dL (11.7-16.9); MCH 29.4 pg (25.7-33.7); MCHC 33.1 g/dl (32.0-35.9); MEAN CELL VOLUME 88.8 fl (80-96); MEAN PLT VOLUME 10.6 fl (7.5-11.1); PLATELET COUNT 98 10^3/uL (134-434); RDW 16.6 % (11.9-15.9); WHITE BLOOD COUNT 13.2 K/mm3 (4.0-10.0)
[2021-08-30] MEDS: MIDODRINE HCL 5 MG TABLET PO SCH ×2 (05:01→18:01)
[2021-08-30] MEDS: NOREPINEPHRINE NS PREMIX 16,000 MCG/500 ML BAG IVPB SCH (05:01)
[2021-08-30 05:08] LABS: CALCIUM 7.7 mg/dL (8.5-10.1)
[2021-08-30 05:09] LABS: BLOOD UREA NITROGEN 36.2 mg/dL (7-18)
[2021-08-30 05:12] LABS: CREATININE 1.1 mg/dL (0.55-1.3)
[2021-08-30 05:13] LABS: BILIRUBIN,TOTAL 0.4 mg/dL (0.2-1); TOT PROT 5.8 g/dl (6.4-8.2)
[2021-08-30] MEDS ORDERED: PT OWN MED DRAWER 7, Y5N ONE (09:00)
[2021-08-30] MEDS: POTASSIUM CHLORIDE 20 MEQ in DEXTROSE 5%-WATER - 1,000 ML IV SCH ×3 (09:05→22:02)
[2021-08-30] MEDS: PANTOPRAZOLE SODIUM 40 MG VIAL IVPUSH SCH ×2 (11:11→22:03)
[2021-08-30] MEDS: POLYETHYLENE GLYCOL (HEALTHYLAX) 3350 17 GM PACKET GT SCH ×2 (11:13→23:00)
[2021-08-30] MEDS: levETIRAcetam 500 MG/5 ML INJECTION VIAL IVPB SCH ×2 (11:13→22:02)
[2021-08-30] MEDS: MUPIROCIN 2% TOPICAL OINTMENT FOR DECOLONIZATION NS SCH ×2 (11:17→22:03)
[2021-08-30] MEDS: CHLORHEXIDINE GLUCONATE 4% CLEANSER FOR DECOLONIZATION TP SCH (22:03)
[2021-08-30] MEDS: QUEtiapine FUMARATE 25 MG TABLET PO SCH (22:03)
[2021-08-31] MEDS: MIDODRINE HCL 5 MG TABLET PO SCH ×4 (00:27→23:44)
[2021-08-31] MEDS: PIPERACILLIN/TAZOB 3.375 GM 3.375 GM in DEXTROSE 5%-WATER - 50 ML IVPB SCH ×2 (01:22→10:23)
[2021-08-31] MEDS: POTASSIUM CHLORIDE 20 MEQ in DEXTROSE 5%-WATER - 1,000 ML IV SCH ×4 (03:39→23:26)
[2021-08-31] MEDS: NOREPINEPHRINE NS PREMIX 16,000 MCG/500 ML BAG IVPB SCH (05:00)
[2021-08-31 07:26] LABS: BASO % 0.6 % (0-2.0); EOS % 5.5 % (0-4.5); HEMATOCRIT 23.3 % (35.4-49); HEMOGLOBIN 7.7 GM/dL (11.7-16.9); MCH 29.3 pg (25.7-33.7); MCHC 33.3 g/dl (32.0-35.9); MEAN CELL VOLUME 88.1 fl (80-96); MEAN PLT VOLUME 9.4 fl (7.5-11.1); MONO % 8.3 % (3.8-10.2); NEUT % 61.6 % (42.8-82.8); PLATELET COUNT 110 10^3/uL (134-434); RBC 2.64 M/mm3 (4.00-5.60); WHITE BLOOD COUNT 6.4 K/mm3 (4.0-10.0)
[2021-08-31 07:49] LABS: CALCIUM 7.7 mg/dL (8.5-10.1)
[2021-08-31 07:50] LABS: BLOOD UREA NITROGEN 23.6 mg/dL (7-18); MAGNESIUM 1.9 mg/dL (1.8-2.4)
[2021-08-31 07:52] LABS: PHOSPHOROUS 2.1 mg/dL (2.5-4.9)
[2021-08-31 07:54] LABS: BILIRUBIN,TOTAL 0.2 mg/dL (0.2-1); TOT PROT 5.6 g/dl (6.4-8.2)
[2021-08-31] MEDS ORDERED: DEXTROSE 5%-WATER - 50 ML IVPB ONE (10:19)
[2021-08-31] MEDS ORDERED: PIPERACILLIN/TAZOBACTAM 3.375 GM VIAL IVPB ONE (10:19)
[2021-08-31] MEDS: POLYETHYLENE GLYCOL (HEALTHYLAX) 3350 17 GM PACKET GT SCH ×2 (10:22→22:23)
[2021-08-31] MEDS: levETIRAcetam 500 MG/5 ML INJECTION VIAL IVPB SCH ×2 (10:23→23:09)
[2021-08-31] MEDS: PANTOPRAZOLE SODIUM 40 MG VIAL IVPUSH SCH ×2 (10:23→23:10)
[2021-08-31] MEDS ORDERED: POTASSIUM PHOSPHATE 30 MM in SODIUM CHLORIDE 250 ML IVPB ONE (11:00)
[2021-08-31] MEDS ORDERED: PIPERACILLIN/TAZOBACTAM 4.5 GM VIAL IVPB ONE ×2 (14:55→22:22)
[2021-08-31] MEDS ORDERED: DEXTROSE 5%-WATER 100 ML IVPB ONE ×2 (14:55→22:22)
[2021-08-31] MEDS: PIPERACILLIN/TAZOB 4.5 GM 4.5 GM in DEXTROSE 5%-WATER 100 ML IVPB SCH ×2 (14:59→22:29)
[2021-08-31] MEDS: HEPARIN NA (PORCINE) 5,000 UNITS/ML 1ML VIAL SQ SCH ×2 (15:01→22:31)
[2021-08-31] MEDS: CHLORHEXIDINE GLUCONATE 4% CLEANSER FOR DECOLONIZATION TP SCH (22:24)
[2021-08-31] MEDS: QUEtiapine FUMARATE 25 MG TABLET PO SCH (23:18)
[2021-08-31] MEDS ORDERED: NOREPINEPHRINE NS PREMIX 16,000 MCG/500 ML BAG IVPB SCH (23:44)
[2021-09-01] MEDS ORDERED: PIPERACILLIN/TAZOBACTAM 4.5 GM VIAL IVPB ONE ×4 (02:23→20:51)
[2021-09-01] MEDS ORDERED: DEXTROSE 5%-WATER 100 ML IVPB ONE ×4 (02:24→20:52)
[2021-09-01] MEDS: PIPERACILLIN/TAZOB 4.5 GM 4.5 GM in DEXTROSE 5%-WATER 100 ML IVPB SCH ×4 (02:28→21:19)
[2021-09-01] MEDS: HEPARIN NA (PORCINE) 5,000 UNITS/ML 1ML VIAL SQ SCH ×3 (06:19→21:33)
[2021-09-01] MEDS ORDERED: POTASSIUM CHLORIDE 20 MEQ in DEXTROSE 5%-WATER - 1,000 ML IV SCH (09:30)
[2021-09-01] MEDS ORDERED: MIDODRINE HCL 5 MG TABLET PO SCH (10:00)
[2021-09-01] MEDS: PANTOPRAZOLE SODIUM 40 MG VIAL IVPUSH SCH ×2 (11:38→21:20)
[2021-09-01] MEDS: levETIRAcetam 500 MG/5 ML INJECTION VIAL IVPB SCH ×2 (11:38→22:05)
[2021-09-01] MEDS: POLYETHYLENE GLYCOL (HEALTHYLAX) 3350 17 GM PACKET GT SCH ×3 (11:38→21:38)
[2021-09-01] MEDS ORDERED: PT OWN MED DRAWER 7, Y5N ONE (13:05)
[2021-09-01] MEDS: MIDODRINE HCL 5 MG TABLET PO SCH ×2 (15:23→17:55)
[2021-09-01] MEDS: BANATROL PLUS POWDER PACKET PO SCH (21:19)
[2021-09-01] MEDS: QUEtiapine FUMARATE 25 MG TABLET PO SCH (21:21)
[2021-09-01] MEDS ORDERED: CHLORHEXIDINE GLUCONATE 4% CLEANSER FOR DECOLONIZATION TP SCH (22:00)
[2021-09-02] MEDS ORDERED: PIPERACILLIN/TAZOBACTAM 4.5 GM VIAL IVPB ONE ×4 (01:04→19:55)
[2021-09-02] MEDS ORDERED: DEXTROSE 5%-WATER 100 ML IVPB ONE ×4 (01:04→19:55)
[2021-09-02] MEDS: PIPERACILLIN/TAZOB 4.5 GM 4.5 GM in DEXTROSE 5%-WATER 100 ML IVPB SCH ×4 (02:01→20:06)
[2021-09-02] MEDS: HEPARIN NA (PORCINE) 5,000 UNITS/ML 1ML VIAL SQ SCH ×3 (06:34→21:12)
[2021-09-02] MEDS: BANATROL PLUS POWDER PACKET PO SCH ×3 (06:34→21:11)
[2021-09-02 07:58] LABS: ALBUMIN 2.1 g/dl (3.4-5.0); BILIRUBIN,TOTAL 0.2 mg/dL (0.2-1); CREATININE 0.9 mg/dL (0.55-1.3)
[2021-09-02] MEDS: levETIRAcetam 500 MG/5 ML INJECTION VIAL IVPB SCH ×2 (11:28→21:12)
[2021-09-02] MEDS: PANTOPRAZOLE SODIUM 40 MG VIAL IVPUSH SCH ×2 (11:28→21:11)
[2021-09-02] MEDS: MIDODRINE HCL 5 MG TABLET PO SCH ×3 (11:29→17:06)
[2021-09-02] MEDS: POLYETHYLENE GLYCOL (HEALTHYLAX) 3350 17 GM PACKET GT SCH ×2 (11:29→21:12)
[2021-09-02] MEDS ORDERED: PT OWN MED DRAWER 7, Y5N ONE (16:54)
[2021-09-02] MEDS: QUEtiapine FUMARATE 25 MG TABLET PO SCH (21:11)
[2021-09-03] MEDS ORDERED: DEXTROSE 5%-WATER 100 ML IVPB ONE ×4 (01:22→20:40)
[2021-09-03] MEDS ORDERED: PIPERACILLIN/TAZOBACTAM 4.5 GM VIAL IVPB ONE ×4 (01:22→20:40)
[2021-09-03] MEDS: PIPERACILLIN/TAZOB 4.5 GM 4.5 GM in DEXTROSE 5%-WATER 100 ML IVPB SCH ×4 (02:16→20:55)
[2021-09-03] MEDS: BANATROL PLUS POWDER PACKET PO SCH ×3 (05:51→21:33)
[2021-09-03] MEDS: HEPARIN NA (PORCINE) 5,000 UNITS/ML 1ML VIAL SQ SCH ×3 (05:51→21:33)
[2021-09-03 08:47] LABS: BASO % 0.6 % (0-2.0); HEMATOCRIT 24.2 % (35.4-49); HEMOGLOBIN 8.2 GM/dL (11.7-16.9); LYMPH % 22.6 % (8-40); MCH 29.4 pg (25.7-33.7); MCHC 33.8 g/dl (32.0-35.9); MEAN PLT VOLUME 9.2 fl (7.5-11.1); MONO % 7.5 % (3.8-10.2); NEUT % 64.3 % (42.8-82.8); PLATELET COUNT 258 10^3/uL (134-434); RBC 2.78 M/mm3 (4.00-5.60); RDW 16.4 % (11.9-15.9); WHITE BLOOD COUNT 9.1 K/mm3 (4.0-10.0)
[2021-09-03] MEDS: POLYETHYLENE GLYCOL (HEALTHYLAX) 3350 17 GM PACKET GT SCH ×2 (09:28→21:31)
[2021-09-03] MEDS: MIDODRINE HCL 5 MG TABLET PO SCH ×3 (09:46→17:02)
[2021-09-03] MEDS: PANTOPRAZOLE SODIUM 40 MG VIAL IVPUSH SCH ×2 (09:46→21:33)
[2021-09-03 10:05] LABS: CALCIUM 8.2 mg/dL (8.5-10.1)
[2021-09-03] MEDS: levETIRAcetam 500 MG/5 ML INJECTION VIAL IVPB SCH ×2 (10:29→21:33)
[2021-09-03 11:21] LABS: BLOOD UREA NITROGEN 14.5 mg/dL (7-18)
[2021-09-03] MEDS ORDERED: PT OWN MED DRAWER 7, Y5N ONE (20:40)
[2021-09-03] MEDS: QUEtiapine FUMARATE 25 MG TABLET PO SCH (21:34)
[2021-09-04] MEDS ORDERED: PIPERACILLIN/TAZOBACTAM 4.5 GM VIAL IVPB ONE ×4 (01:11→21:55)
[2021-09-04] MEDS ORDERED: DEXTROSE 5%-WATER 100 ML IVPB ONE ×4 (01:11→21:56)
[2021-09-04] MEDS: PIPERACILLIN/TAZOB 4.5 GM 4.5 GM in DEXTROSE 5%-WATER 100 ML IVPB SCH ×4 (02:01→21:59)
[2021-09-04] MEDS ORDERED: PT OWN MED DRAWER 7, Y5N ONE (05:43)
[2021-09-04] MEDS: HEPARIN NA (PORCINE) 5,000 UNITS/ML 1ML VIAL SQ SCH ×3 (05:59→22:04)
[2021-09-04] MEDS: BANATROL PLUS POWDER PACKET PO SCH ×3 (05:59→22:05)
[2021-09-04 11:06] LABS: BLOOD UREA NITROGEN 16.6 mg/dL (7-18); CALCIUM 8.5 mg/dL (8.5-10.1); CREATININE 1.1 mg/dL (0.55-1.3)
[2021-09-04] MEDS: levETIRAcetam 500 MG/5 ML INJECTION VIAL IVPB SCH ×2 (11:36→22:03)
[2021-09-04] MEDS: PANTOPRAZOLE SODIUM 40 MG VIAL IVPUSH SCH ×2 (11:36→22:01)
[2021-09-04] MEDS: POLYETHYLENE GLYCOL (HEALTHYLAX) 3350 17 GM PACKET GT SCH ×2 (11:36→22:05)
[2021-09-04] MEDS: MIDODRINE HCL 5 MG TABLET PO SCH ×3 (11:37→18:31)
[2021-09-04] MEDS ORDERED: DEXTROSE 5%-WATER - 1,000 ML with POTASSIUM CHLORIDE 10 MEQ IV SCH (13:45)
[2021-09-04] MEDS ORDERED: ALBUTEROL SO4 0.083% IH SOL 2.5 MG/3 ML VIAL.NEB. NEB PRN (13:46)
[2021-09-04] MEDS: SCOPOLAMINE HYDROBROMIDE 1 PATCH PATCH.TD72 TD SCH (16:03)
[2021-09-04] MEDS: ALBUTEROL SO4 2.5/IPRATROPIUM 0.5 INH SOL 3 ML VIAL.NEB. NEB SCH ×2 (16:26→20:08)
[2021-09-04] MEDS: QUEtiapine FUMARATE 25 MG TABLET PO SCH (22:02)
[2021-09-05] MEDS ORDERED: PT OWN MED DRAWER 7, Y5N ONE (05:49)
[2021-09-05] MEDS: HEPARIN NA (PORCINE) 5,000 UNITS/ML 1ML VIAL SQ SCH ×3 (05:53→21:36)
[2021-09-05] MEDS: BANATROL PLUS POWDER PACKET PO SCH ×3 (05:53→21:35)
[2021-09-05] MEDS: ALBUTEROL SO4 2.5/IPRATROPIUM 0.5 INH SOL 3 ML VIAL.NEB. NEB SCH ×4 (08:03→20:00)
[2021-09-05] MEDS: POLYETHYLENE GLYCOL (HEALTHYLAX) 3350 17 GM PACKET GT SCH ×2 (09:49→21:35)
[2021-09-05] MEDS: levETIRAcetam 500 MG/5 ML INJECTION VIAL IVPB SCH ×2 (09:49→21:35)
[2021-09-05] MEDS: PANTOPRAZOLE SODIUM 40 MG VIAL IVPUSH SCH ×2 (09:53→21:35)
[2021-09-05] MEDS: MIDODRINE HCL 5 MG TABLET PO SCH ×3 (09:53→19:47)
[2021-09-05 14:35] LABS: BASO % 0.8 % (0-2.0); EOS % 2.8 % (0-4.5); HEMATOCRIT 21.9 % (35.4-49); HEMOGLOBIN 7.3 GM/dL (11.7-16.9); LYMPH % 13.2 % (8-40); MCHC 33.2 g/dl (32.0-35.9); MEAN CELL VOLUME 87.4 fl (80-96); MEAN PLT VOLUME 8.8 fl (7.5-11.1); MONO % 7.8 % (3.8-10.2); NEUT % 75.4 % (42.8-82.8); PLATELET COUNT 312 10^3/uL (134-434)
[2021-09-05] MEDS: QUEtiapine FUMARATE 25 MG TABLET PO SCH (21:36)
[2021-09-06] MEDS ORDERED: FUROSEMIDE 40 MG/4 ML INJECTABLE VIAL IVPUSH ONE (04:15)
[2021-09-06] MEDS: HEPARIN NA (PORCINE) 5,000 UNITS/ML 1ML VIAL SQ SCH ×3 (05:26→21:06)
[2021-09-06] MEDS: BANATROL PLUS POWDER PACKET PO SCH ×3 (05:26→21:06)
[2021-09-06] MEDS: ALBUTEROL SO4 2.5/IPRATROPIUM 0.5 INH SOL 3 ML VIAL.NEB. NEB SCH ×4 (07:26→20:05)
[2021-09-06 08:35] LABS: CALCIUM 8.5 mg/dL (8.5-10.1)
[2021-09-06 08:36] LABS: ALBUMIN 2.2 g/dl (3.4-5.0); BLOOD UREA NITROGEN 20.6 mg/dL (7-18)
[2021-09-06 08:39] LABS: CREATININE 0.9 mg/dL (0.55-1.3)
[2021-09-06 08:40] LABS: BILIRUBIN,TOTAL 0.2 mg/dL (0.2-1); TOT PROT 6.4 g/dl (6.4-8.2)
[2021-09-06] MEDS: PANTOPRAZOLE SODIUM 40 MG VIAL IVPUSH SCH (09:40)
[2021-09-06] MEDS: levETIRAcetam 500 MG/5 ML INJECTION VIAL IVPB SCH (09:40)
[2021-09-06] MEDS: POLYETHYLENE GLYCOL (HEALTHYLAX) 3350 17 GM PACKET GT SCH ×2 (09:40→21:06)
[2021-09-06] MEDS: MIDODRINE HCL 5 MG TABLET PO SCH ×3 (09:41→17:39)
[2021-09-06 13:43] LABS: BASO % 0.7 % (0-2.0); EOS % 0.8 % (0-4.5); HEMATOCRIT 34.4 % (35.4-49); HEMOGLOBIN 11.6 GM/dL (11.7-16.9); LYMPH % 12.8 % (8-40); MCH 28.5 pg (25.7-33.7); MCHC 33.7 g/dl (32.0-35.9); MEAN CELL VOLUME 84.4 fl (80-96); MEAN PLT VOLUME 7.6 fl (7.5-11.1); MONO % 10.3 % (3.8-10.2); NEUT % 75.4 % (42.8-82.8); PLATELET COUNT 376 10^3/uL (134-434); RBC 4.08 M/mm3 (4.00-5.60); RDW 14.6 % (11.9-15.9)
[2021-09-06 14:27] LABS: CALCIUM 8.9 mg/dL (8.5-10.1)
[2021-09-06 14:28] LABS: ALBUMIN 2.1 g/dl (3.4-5.0); BLOOD UREA NITROGEN 17.1 mg/dL (7-18)
[2021-09-06 14:31] LABS: CREATININE 0.6 mg/dL (0.55-1.3)
[2021-09-06 14:33] LABS: TOT PROT 6.8 g/dl (6.4-8.2)
[2021-09-06 14:37] LABS: BILIRUBIN,TOTAL 0.5 mg/dL (0.2-1)
[2021-09-06] MEDS: FUROSEMIDE 20 MG TABLET (FP) PO SCH (14:58)
[2021-09-06] MEDS: LORATADINE 10 MG TABLET PO SCH (14:59)
[2021-09-06] MEDS: PANTOPRAZOLE 40 MG TABLET PO SCH (21:06)
[2021-09-06] MEDS: QUEtiapine FUMARATE 25 MG TABLET PO SCH (21:06)
[2021-09-06] MEDS: levETIRAcetam 500 MG/5 ML ORAL SOLUTION (UNIT-DOSE CUPS) PO SCH (21:06)
[2021-09-07] MEDS: HEPARIN NA (PORCINE) 5,000 UNITS/ML 1ML VIAL SQ SCH ×3 (05:04→22:53)
[2021-09-07] MEDS: BANATROL PLUS POWDER PACKET PO SCH ×3 (05:04→22:54)
[2021-09-07] MEDS: ALBUTEROL SO4 2.5/IPRATROPIUM 0.5 INH SOL 3 ML VIAL.NEB. NEB SCH ×4 (07:35→19:53)
[2021-09-07] MEDS: FUROSEMIDE 20 MG TABLET (FP) PO SCH (09:38)
[2021-09-07] MEDS: PANTOPRAZOLE 40 MG TABLET PO SCH ×2 (09:38→23:14)
[2021-09-07] MEDS: levETIRAcetam 500 MG/5 ML ORAL SOLUTION (UNIT-DOSE CUPS) PO SCH ×2 (09:38→22:54)
[2021-09-07] MEDS: POLYETHYLENE GLYCOL (HEALTHYLAX) 3350 17 GM PACKET GT SCH ×2 (09:38→22:42)
[2021-09-07] MEDS: MIDODRINE HCL 5 MG TABLET PO SCH ×3 (09:39→17:20)
[2021-09-07] MEDS: LORATADINE 10 MG TABLET PO SCH (09:39)
[2021-09-07] MEDS: SCOPOLAMINE HYDROBROMIDE 1 PATCH PATCH.TD72 TD SCH (13:01)
[2021-09-07] MEDS: QUEtiapine FUMARATE 25 MG TABLET PO SCH (22:53)
[2021-09-08] MEDS: PANTOPRAZOLE SODIUM 40 MG VIAL IVPUSH SCH ×2 (01:06→09:34)
[2021-09-08] MEDS: BANATROL PLUS POWDER PACKET PO SCH ×3 (06:04→23:00)
[2021-09-08] MEDS: ALBUTEROL SO4 2.5/IPRATROPIUM 0.5 INH SOL 3 ML VIAL.NEB. NEB SCH (07:43)
[2021-09-08] MEDS: MIDODRINE HCL 5 MG TABLET PO SCH ×3 (09:36→17:24)
[2021-09-08] MEDS: LORATADINE 10 MG TABLET PO SCH (09:36)
[2021-09-08] MEDS: FUROSEMIDE 20 MG TABLET (FP) PO SCH (09:36)
[2021-09-08] MEDS: levETIRAcetam 500 MG/5 ML ORAL SOLUTION (UNIT-DOSE CUPS) PO SCH ×2 (09:36→23:00)
[2021-09-08] MEDS: POLYETHYLENE GLYCOL (HEALTHYLAX) 3350 17 GM PACKET GT SCH ×2 (09:37→23:00)
[2021-09-08] MEDS: QUEtiapine FUMARATE 25 MG TABLET PO SCH ×2 (10:28→23:00)
[2021-09-08] MEDS: PANTOPRAZOLE SOD 40 MG SUSPENSION PACKET PO SCH ×2 (10:49→23:00)
[2021-09-08] MEDS ORDERED: ACETYLCYSTEINE 20% 200MG/ML 30 ML VIAL *FOR ORAL / INH USE ONLY NEB SCH (12:00)
[2021-09-08] MEDS ORDERED: ACETYLCYSTEINE 20% 200MG/ML 4 ML VIAL *FOR ORAL / INH USE ONLY NEB SCH (12:00)
[2021-09-08] MEDS: ALBUTEROL SO4 0.083% IH SOL 2.5 MG/3 ML VIAL.NEB. NEB SCH ×3 (12:10→20:45)
[2021-09-08 13:07] LABS: BASO % 0.7 % (0-2.0); EOS % 3.5 % (0-4.5); HEMOGLOBIN 9.3 GM/dL (11.7-16.9); LYMPH % 15.9 % (8-40); MCH 28.6 pg (25.7-33.7); MCHC 33.2 g/dl (32.0-35.9); MEAN CELL VOLUME 86.1 fl (80-96); MEAN PLT VOLUME 8.9 fl (7.5-11.1); NEUT % 69.9 % (42.8-82.8); PLATELET COUNT 337 10^3/uL (134-434); RBC 3.25 M/mm3 (4.00-5.60); WHITE BLOOD COUNT 6.4 K/mm3 (4.0-10.0)
[2021-09-08 13:35] LABS: ALBUMIN 2.4 g/dl (3.4-5.0); BLOOD UREA NITROGEN 23.8 mg/dL (7-18); CALCIUM 8.9 mg/dL (8.5-10.1)
[2021-09-08 13:38] LABS: CREATININE 0.8 mg/dL (0.55-1.3)
[2021-09-08 13:40] LABS: BILIRUBIN,TOTAL 0.2 mg/dL (0.2-1); TOT PROT 6.5 g/dl (6.4-8.2)
[2021-09-09] MEDS: BANATROL PLUS POWDER PACKET PO SCH ×3 (05:58→21:44)
[2021-09-09] MEDS: ALBUTEROL SO4 0.083% IH SOL 2.5 MG/3 ML VIAL.NEB. NEB SCH ×4 (08:00→20:46)
[2021-09-09] MEDS ORDERED: clonazePAM 0.25 MG ODT TABLETS SL SCH (08:30)
[2021-09-09] MEDS: levETIRAcetam 500 MG/5 ML ORAL SOLUTION (UNIT-DOSE CUPS) PO SCH ×2 (10:42→21:44)
[2021-09-09] MEDS: PANTOPRAZOLE SOD 40 MG SUSPENSION PACKET PO SCH ×2 (10:42→21:44)
[2021-09-09] MEDS: POLYETHYLENE GLYCOL (HEALTHYLAX) 3350 17 GM PACKET GT SCH ×2 (10:42→21:44)
[2021-09-09] MEDS: MIDODRINE HCL 5 MG TABLET PO SCH ×3 (10:42→17:11)
[2021-09-09] MEDS: QUEtiapine FUMARATE 25 MG TABLET PO SCH ×2 (10:42→21:44)
[2021-09-09] MEDS: FUROSEMIDE 20 MG TABLET (FP) PO SCH (10:42)
[2021-09-09] MEDS: LORATADINE 10 MG TABLET PO SCH (10:42)
[2021-09-09] MEDS ORDERED: PT OWN MED DRAWER 7, Y5N ONE (21:35)
[2021-09-09] MEDS: clonazePAM 0.5 MG TABLET GT SCH (21:44)
[2021-09-10] MEDS: BANATROL PLUS POWDER PACKET PO SCH ×3 (05:12→22:07)
[2021-09-10] MEDS: ALBUTEROL SO4 0.083% IH SOL 2.5 MG/3 ML VIAL.NEB. NEB SCH ×4 (09:25→20:30)
[2021-09-10] MEDS: FUROSEMIDE 20 MG TABLET (FP) PO SCH (10:34)
[2021-09-10] MEDS: QUEtiapine FUMARATE 25 MG TABLET PO SCH ×2 (10:34→22:08)
[2021-09-10] MEDS: MIDODRINE HCL 5 MG TABLET PO SCH ×3 (10:34→17:05)
[2021-09-10] MEDS: clonazePAM 0.5 MG TABLET GT SCH ×2 (10:34→19:49)
[2021-09-10] MEDS: PANTOPRAZOLE SOD 40 MG SUSPENSION PACKET PO SCH ×2 (10:34→22:07)
[2021-09-10] MEDS: LORATADINE 10 MG TABLET PO SCH (10:34)
[2021-09-10] MEDS: POLYETHYLENE GLYCOL (HEALTHYLAX) 3350 17 GM PACKET GT SCH ×2 (10:35→22:07)
[2021-09-10] MEDS ORDERED: PT OWN MED DRAWER 7, Y5N ONE (10:37)
[2021-09-10] MEDS: levETIRAcetam 500 MG/5 ML ORAL SOLUTION (UNIT-DOSE CUPS) PO SCH ×2 (10:38→22:07)
[2021-09-10 12:09] LABS: CALCIUM 9.2 mg/dL (8.5-10.1)
[2021-09-10 12:10] LABS: ALBUMIN 2.2 g/dl (3.4-5.0)
[2021-09-10 12:13] LABS: CREATININE 0.7 mg/dL (0.55-1.3)
[2021-09-10 12:15] LABS: BILIRUBIN,TOTAL 0.2 mg/dL (0.2-1); TOT PROT 6.4 g/dl (6.4-8.2)
[2021-09-10 12:18] LABS: BLOOD UREA NITROGEN 20.3 mg/dL (7-18)
[2021-09-10] MEDS: SCOPOLAMINE HYDROBROMIDE 1 PATCH PATCH.TD72 TD SCH (13:17)
[2021-09-11 06:20] VITALS: TEMP 98.5
[2021-09-11] MEDS: BANATROL PLUS POWDER PACKET PO SCH (07:15)
[2021-09-11] MEDS: ALBUTEROL SO4 0.083% IH SOL 2.5 MG/3 ML VIAL.NEB. NEB SCH ×2 (08:00→11:42)
[2021-09-11] MEDS: clonazePAM 0.5 MG TABLET GT SCH (08:59)
[2021-09-11] MEDS: LORATADINE 10 MG TABLET PO SCH (08:59)
[2021-09-11] MEDS: QUEtiapine FUMARATE 25 MG TABLET PO SCH (08:59)
[2021-09-11] MEDS: POLYETHYLENE GLYCOL (HEALTHYLAX) 3350 17 GM PACKET GT SCH (08:59)
[2021-09-11] MEDS ORDERED: PT OWN MED DRAWER 7, Y5N ONE (09:03)
[2021-09-11] MEDS: levETIRAcetam 500 MG/5 ML ORAL SOLUTION (UNIT-DOSE CUPS) PO SCH (09:19)
[2021-09-11] MEDS: MIDODRINE HCL 5 MG TABLET PO SCH (09:19)
[2021-09-11] MEDS: FUROSEMIDE 20 MG TABLET (FP) PO SCH (09:19)
[2021-09-11] MEDS: PANTOPRAZOLE SOD 40 MG SUSPENSION PACKET PO SCH (09:19)
[2021-09-11] MEDS ORDERED: LISINOPRIL 5 MG TABLET GT ONE (10:25)
[2021-09-11 12:56] VITALS: BP 163/88; PULSE 64
[2021-09-12] MEDS ORDERED: LISINOPRIL 5 MG TABLET PO SCH (10:00)
== END 2021-09-11 14:11 | DRG 871 ==
LOC: JER 13:42 → JERBED 16:32 → UNDOADMIN 16:32 → JICU 08-26 04:14 → J7W 08-31 20:03 → J8W 09-10 16:18 → J7W 09-10 16:42
PROVIDERS: ADMIT Internal Medicine; ATTEND Family Medicine
PROC: 05HM33Z Insertion of Infusion Device into Right Internal Jugular Vein, Percutaneous Approach (ICD-10-PCS; principal; 2021-08-26)
PROC: B543ZZA Ultrasonography of Right Jugular Veins, Guidance (ICD-10-PCS; 2021-08-26)
PROC: 30233N1 Transfusion of Nonautologous Red Blood Cells into Peripheral Vein, Percutaneous Approach (ICD-10-PCS; 2021-08-29)
DX: A41.9 Sepsis, unspecified organism (principal); J18.9 Pneumonia, unspecified organism; R65.21 Severe sepsis with septic shock; G92.9 Unspecified toxic encephalopathy; J15.1 Pneumonia due to Pseudomonas; J96.12 Chronic respiratory failure with hypercapnia; E87.2 Acidosis; E46 Unspecified protein-calorie malnutrition; N39.0 Urinary tract infection, site not specified; N17.9 Acute kidney failure, unspecified; J96.11 Chronic respiratory failure with hypoxia; E87.0 Hyperosmolality and hypernatremia; Z16.12 Extended spectrum beta lactamase (ESBL) resistance; E78.5 Hyperlipidemia, unspecified; D69.6 Thrombocytopenia, unspecified; D64.9 Anemia, unspecified; Z68.20 Body mass index [BMI] 20.0-20.9, adult; I95.9 Hypotension, unspecified; I12.9 Hypertensive chronic kidney disease with stage 1 through stage 4 chronic kidney disease, or unspecified chronic kidney disease; N18.9 Chronic kidney disease, unspecified; B96.4 Proteus (mirabilis) (morganii) as the cause of diseases classified elsewhere; D72.829 Elevated white blood cell count, unspecified
CPT/HCPCS: 36415; 36430; 36511; 36600; 70450-TC; 71045-TC-FY; 71250-TC; 76775-TC; 80048; 80053; 80185; 80307; 81003; 82140; 82272; 82550; 82570; 82803; 83540; 83550; 83605; 83735; 83930; 83935; 84100; 84300; 84443; 84484; 85025; 85027; 85610; 85730; 86850; 86900; 86901; 86922; 87040; 87070; 87086; 87186; 87205; 87804; 93005; 93010; 93306-TC; 94640; 99285-25; C9803; G0480; J1644; P9038; P9047; P9058; U0003; U0005